=== PATIENT | male | born 1935 | race Caucasian/White ===

== ENCOUNTER → 2018-07-03 13:51 | Outpatient (CLI) | payer MEDICARE, OTHER, SELFPAY ==
--- NOTE | 2018-07-03 14:54 | P.PCN_ITS ---
Cardiac Stress Test Report Referral & Results Date Patient Seen: 07/03/18 Requesting provider: Balbir Tavarez Indication: chest pain with activity Rest ECG: T-wave inversions in inferior and far lateral leads Procedure Note: Today following both written and verbal informed consent the patient was exercised according to a standard Mode protocol patient went for a total of 6 min 24 sec achieving a maximum heart rate of 149 maximum systolic blood pressure of 180. This is approximately 7.0 METS. Exercise was terminated at this point because of chest pain at 4/[address]-T segment changes and target heart rate had been achieved. Patient was also given Cardiolite through a previously started Hep-Lock IV by the physical science technician approximately 1 minute prior to the cessation of exercise. patient did develop about 2 L of initially flat then downsloping ST segment depression in leads V5 and V6 with reciprocal changes in inferior leads. Ba seline T-wave inversions in inferior leads makes this somewhat less specific it more difficult to identify. Patient had occasional PVCs Functional aerobic impairment rated about -10% on the active scale or better than average Impression: Ischemic changes as above in inferior and far lateral leads Better than average exercise capacity Please see perfusion imaging as well Please note: Actual ECG tracings can be found in the PACS system.
--- NOTE | 2018-07-07 07:53 | DI.NM.S_ITS ---
DATE OF SERVICE: 07/03/2018 PROCEDURE: Exercise perfusion study. INDICATION: Exertional angina with known history of coronary artery disease; history of bypass surgery x2; and percutaneous coronary intervention (PCI) of the right coronary artery in 2009, which was chronically occluded. RADIOPHARMACEUTICAL: 25.0 mCi technetium-99m Myoview IV was injected at stress and 24.7 mCi technetium-99m Myoview IV was injected at rest. CARDIAC STRESS: The patient underwent an exercise perfusion study under the supervision of an attending staff. He walked on Mode protocol for 6 minutes 24 seconds and achieved 106% of target heart rate. There was hypertensive blood pressure response. Baseline blood pressure was 160/80. Peak blood pressure reported to be 180/100. Baseline EKG revealed sinus rhythm with T-wave inversions in leads III, aVF, some ST flattening, and occasional PACs. During exercise, the patient developed 2 to 3-mm horizonal as well as down-sloping ST depression in inferior leads as well as lead V5 to V6. The patient has intermittent PACs and some PVCs. In the recovery, the patient had frequent short bursts of 3 to 4 beats run of narrow QRS tachycardia, which overall appears to be regular, likely SVT with a rate more than 200. The patient continues to have intermittent PVCs without any ventricular tachycardia. ST depression in the inferior leads, lateral leads, lasted for a longer duration. The patient also had chest discomfort, which was, on a scale of 1 to 10, about a 4 in intensity. FUNCTIONAL AEROBIC IMPAIRMENT: -10%. The patient achieved 7 minutes of workload. RAW DATA: There was increased subdiaphragmatic activity. GATED STUDY: Stress LV ejection fraction reported to be 52%. There appears to be base to mid inferior wall hyperkinesis. Resting end-diastolic volume 188 mL, suggestive of dilated left ventricle. TID ratio 0.85, which is within normal limits. Lung/heart ratio is 0.28, which is within normal limits. MYOCARDIAL PERFUSION: Stress supine, resting supine, and stress prone images were compared to each other. It appears to be that the patient has predominantly fixed [id number] sized, severely decreased perfusion of base to mid inferior wall extending into the base to mid inferolateral wall as well as basal inferior septum. There was mild rancho-infarct ischemia in the inferolateral area. 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 The patient walked on [place] protocol for 6 minutes 24 seconds, had anginal pain as well as 2 to 3-mm horizontal and down-sloping ST depression in inferolateral leads which lasted a longer duration. In recovery, the patient had short bursts of narrow QRS tachycardia, likely SVT. I do not see obvious atrial fibrillation. The patient has frequent PVCs without any ventricular tachycardia. Discussed with Dr. Tavarez. 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
== END ==
PROVIDERS: PCP Internal Medicine; Visit Provider Internal Medicine Cardiovascular Disease
DX: I25.118 Atherosclerotic heart disease of native coronary artery with other forms of angina pectoris (principal); I49.3 Ventricular premature depolarization
CPT/HCPCS: 78452; 93016; 93017; 93018; A9502

== ENCOUNTER → 2018-09-04 09:22 | Outpatient (CLI) | payer MEDICARE, OTHER, SELFPAY ==
--- NOTE | 2018-09-04 | DI.RAD.S_ITS ---
PROCEDURE: XR RIBS RT 2V INDICATIONS: right rib pain TECHNIQUE: 2 views of the right ribs were acquired. COMPARISON: None. FINDINGS: Surgical changes and devices: None. Bones and chest wall: Lateral right lower rib fracture seen. This is probably the right seventh rib although technically indeterminate. Lungs and pleura: The visualized lung appears clear. No pleural effusions or pneumothorax are visible. IMPRESSION: Lower right lateral rib fracture although the exact rib is unclear probably right seventh rib. Dictated by: Tj Lamb M.D. on 09/04/2018 at 10:13 Approved by: Tj Lamb M.D. on 09/04/2018 at 10:16
--- NOTE | 2018-09-04 | DI.RAD.S_ITS ---
PROCEDURE: XR CHEST 2V INDICATIONS: right rib pain TECHNIQUE: 2 views of the chest were acquired. COMPARISON: None. FINDINGS: Surgical changes and devices: Sternotomy wires. Lungs and pleura: No acute consolidation. Scattered subsegmental atelectasis and/or scarring. No pleural effusions or pneumothorax. Mediastinum: Mediastinal contours are normal. Heart size is normal. Bones and chest wall: No suspicious bony abnormalities. Soft tissues appear unremarkable. IMPRESSION: No acute disease Dictated by: Tj Lamb M.D. on 09/04/2018 at 11:15 Approved by: Tj Lamb M.D. on 09/04/2018 at 11:22
--- NOTE | 2018-09-04 | DI.RAD.S_ITS ---
PROCEDURE: XR LUMBAR SPINE 2-3V INDICATIONS: Low back pain TECHNIQUE: 3 views of the lumbar spine were acquired. COMPARISON: None. FINDINGS: Bones: No fracture or focal osseous destruction. Multilevel degenerative endplate sclerosis and spurring. Diffuse facet arthropathy. Mild dextrocurvature. Grade 1 retrolisthesis of L2 on L3 and L3 on L4. There is also grade 1 retrolisthesis of L4 on L5. Severe narrowing of the L2-L3, L3-L4 disc spaces and moderate narrowing of the remaining lumbar disc spaces. Bilateral hip degeneration, severe on the right and moderate on the left. Soft tissues: Overlying bowel gas pattern is normal. No suspicious soft tissue calcifications. IMPRESSION: Severe diffuse lumbar spondylosis and facet arthropathy as detailed above Mild dextrocurvature. Dictated by: Tj Lamb M.D. on 09/04/2018 at 11:12 Approved by: Tj Lamb M.D. on 09/04/2018 at 11:15
== END ==
PROVIDERS: PCP Internal Medicine; Visit Provider Internal Medicine
DX: R07.81 Pleurodynia (principal); S22.31XA Fracture of one rib, right side, initial encounter for closed fracture; M54.5 Low back pain; M47.816 Spondylosis without myelopathy or radiculopathy, lumbar region; M16.0 Bilateral primary osteoarthritis of hip; M48.061 Spinal stenosis, lumbar region without neurogenic claudication
CPT/HCPCS: 71046; 71100; 72100

== ENCOUNTER 2019-05-19 09:26 | Day surgery (SDC) | payer MEDICARE, OTHER, SELFPAY ==
[2019-05-19] MEDS: PROPARACAINE 0.5% OPHTH SOL 2 DROPS EYE-OP (10:29)
[2019-05-19] MEDS: CATARACT EYE COMPOUND (10 DROPS/SYRINGE) 3 DROPS EYE-OP (10:30)
[2019-05-19 10:31] VITALS: BP 156/85; PULSE 71; RESP 16; TEMP 36.7; O2SAT 99; BMI 23.4
--- NOTE | 2019-05-19 11:22 | PM.PREOP ---
Pre-operative Note Interval Note History & Physical reviewed/Exam performed by Physician: Yes Changes to H&P: Yes
--- NOTE | 2019-05-19 11:22 | PM.OP.1 ---
Operative Date/Time/Diagnoses Pre-op diagnosis: Nuclear cataract right eye Procedure & Clinicians Procedure: Cataract Surgery Same procedure as scheduled: Yes Surgeon: Darek Lamb Anesthesia Type: MAC +/- and Sedation Operative Notes Procedure in detail: Patient brought to the operating suite. Tetracaine drops placed in the right eye. Patient was prepped and draped in sterile manner. Wire lid speculum was placed in the eye. Betadine drops were placed on the eye. This was irrigated. Lidocaine jelly was placed on the eye. A paracentesis port was created with a side-port blade. 0.1 mL 1% preservative free lidocaine was injected into the anterior chamber. The anterior chamber was deepened with viscoelastic. 2.6 mm keratome was used to create a temporal clear corneal incision. Cystotome and Utrata forceps were used to create continuous tear capsulorrhexis. Balanced salt solution was used to hydro dissect the nucleus. The phacoemulsification handpiece was inserted and the nucleus was removed using the stop and chop technique. The irrigation aspiration handpiece was inserted and the remaining cortex was removed. Anterior chamber was deepened with viscoelastic. An Tejada ZCB00 intraocular lens with a power of 23.5 was injected into the capsular bag. Irrigation aspiration handpiece was inserted and the remaining viscoelastic was removed. Incision was hydrated with balanced salt solution and found to be leak free with pressure with Weck-Eve sponges. 0.1 mL Vigamox injected anterior chamber. 0.3 mL Kenalog 10 mg was injected subconjunctivally. Lid speculum was removed. The patient left the operating room in excellent condition. Complications: none Post-operative Condition: stable Disposition: same day surgery
[2019-05-19] MEDS: CHONDROIDTIN/SOD HYALURONATE 1.05 ML SYRINGE INTRAOCULA (11:41)
[2019-05-19] MEDS: LIDOCAINE JELLY 2% 5 ML 1 APPLIC TOP (11:41)
[2019-05-19] MEDS: PHENYLEPHRINE/LIDOCAINE VIAL (OR) 0.2 ML EYE-OP (11:41)
[2019-05-19] MEDS: MOXIFLOXACIN INJ 5 MG/ML VIAL EYE-OP (11:41)
[2019-05-19] MEDS: TETRACAINE 0.5% OPHTH DROPS 4 ML 2 DROPS EYE-OP (11:42)
[2019-05-19] MEDS: TRIAMCINOLONE 50 MG/5 ML VIAL INJ (11:42)
[2019-05-19] MEDS: BALANCED SALT IRRIG SOLN NO.2 500 ML, EPINEPHrine 1 MG IRR (11:42)
[2019-05-19 11:55] VITALS: BP 106/68; PULSE 68; RESP 16; TEMP 36.2; O2SAT 97
--- NOTE | 2019-05-19 12:23 | SUR.PHASEII ---
Patient discharged with friend home via private vehicle.
== END 2019-05-19 12:23 | disposition home or self-care (01) ==
PROVIDERS: Family Provider Internal Medicine; PCP Internal Medicine; Visit Provider Ophthalmology
PROC: (CPT 66984; principal; 2019-05-19 11:15)
DX: H25.11 Age-related nuclear cataract, right eye (principal)
CPT/HCPCS: 66984; J0171; J2250; J3010; J3301

== ENCOUNTER 2019-06-02 08:29 | Day surgery (SDC) | payer MEDICARE, OTHER, SELFPAY ==
[2019-06-02 09:01] VITALS: BP 129/76; PULSE 61; RESP 15; TEMP 36.3; O2SAT 97; BMI 23.4
[2019-06-02] MEDS: PROPARACAINE 0.5% OPHTH SOL 2 DROPS EYE-OP (09:15)
[2019-06-02] MEDS: CATARACT EYE COMPOUND (10 DROPS/SYRINGE) 3 DROPS EYE-OP (09:23)
--- NOTE | 2019-06-02 09:48 | PM.PREOP ---
Pre-operative Note Interval Note History & Physical reviewed/Exam performed by Physician: No Changes to H&P: No
--- NOTE | 2019-06-02 09:48 | PM.OP.1 ---
Operative Date/Time/Diagnoses Pre-op diagnosis: Nuclear Cataract Left eye Post-op diagnosis: same Procedure & Clinicians Same procedure as scheduled: Yes Surgeon: Darek Lamb Anesthesia Type: MAC +/- and Sedation Operative Notes Procedure in detail: Patient brought to the operating suite. Tetracaine drops placed in the left eye. Patient was prepped and draped in sterile manner. Wire lid speculum was placed in the eye. Betadine drops were placed on the eye. This was irrigated. Lidocaine jelly was placed on the eye. A paracentesis port was created with a side-port blade. 0.1 mL 1% preservative free lidocaine was injected into the anterior chamber. The anterior chamber was deepened with viscoelastic. 2.6 mm keratome was used to create a temporal clear corneal incision. Cystotome and Utrata forceps were used to create continuous tear capsulorrhexis. Balanced salt solution was used to hydro dissect the nucleus. The phacoemulsification handpiece was inserted and the nucleus was removed using the stop and chop technique. The irrigation aspiration handpiece was inserted and the remaining cortex was removed. Anterior chamber was deepened with viscoelastic. An Tejada ZCB00 intraocular lens with a power of 23.0 was injected into the capsular bag. Irrigation aspiration handpiece was inserted and the remaining viscoelastic was removed. Incision was hydrated with balanced salt solution and found to be leak free with pressure with Weck-Eve sponges. 0.1 mL Vigamox injected anterior chamber. 0.3 mL Kenalog 10 mg was injected subconjunctivally. Lid speculum was removed. The patient left the operating room in excellent condition. Complications: none Post-operative Condition: stable Disposition: same day surgery
--- NOTE | 2019-06-02 09:57 | SUR.OPER ---
Supine on eye stretcher, head on extension cradle secured with tape. Arms tucked at sides with blanket. Pillow under knees.
[2019-06-02] MEDS: PHENYLEPHRINE/LIDOCAINE VIAL (OR) 0.2 ML EYE-OP (10:00)
[2019-06-02] MEDS: CHONDROIDTIN/SOD HYALURONATE 1.05 ML SYRINGE INTRAOCULA (10:01)
[2019-06-02] MEDS: TRIAMCINOLONE 50 MG/5 ML VIAL INJ (10:01)
[2019-06-02] MEDS: MOXIFLOXACIN INJ 5 MG/ML VIAL EYE-OP (10:01)
[2019-06-02] MEDS: LIDOCAINE JELLY 2% 5 ML 1 APPLIC TOP (10:02)
[2019-06-02] MEDS: TETRACAINE 0.5% OPHTH DROPS 4 ML 2 DROPS EYE-OP (10:02)
[2019-06-02] MEDS: BALANCED SALT IRRIG SOLN NO.2 500 ML, EPINEPHrine 1 MG IRR (10:02)
[2019-06-02 10:26] VITALS: BP 107/74; PULSE 69; RESP 16; TEMP 36.6; O2SAT 100
== END 2019-06-02 10:58 | disposition home or self-care (01) ==
PROVIDERS: PCP Internal Medicine; Visit Provider Ophthalmology
PROC: (CPT 66984; principal; 2019-06-02 10:15)
DX: H25.12 Age-related nuclear cataract, left eye (principal)
CPT/HCPCS: 66984; J0171; J2250; J3010; J3301

== ENCOUNTER → 2019-06-25 08:18 | Outpatient (CLI) | payer MEDICARE, OTHER, SELFPAY ==
--- NOTE | 2019-06-25 08:25 | DI.RAD.S_ITS ---
PROCEDURE: XR HIP W PEL IF DONE RT 2V INDICATIONS: Right hip pain TECHNIQUE: AP pelvis with lateral view(s) of the right hip. COMPARISON: [facility], CR, XR LUMBAR SPINE 2-3V, 09/04/2018, 9:29. FINDINGS: Bones: No fractures or dislocations but the right hip joint osteoarthritis pattern present 09/04/18 on lumbosacral spine plain films has further progressed mildly, with a greater degree of esyz-lp-[id number] articulation. No effusion or intra-articular loose body is suspected.. Pelvic ring appears intact. No suspicious bony lesions. Soft tissues: The visualized bowel gas pattern is normal. No suspicious soft tissue calcifications. IMPRESSION: Severe right hip joint osteoarthritis with progression from September of last year. The degree of zqgn-ir-[id number] articulation has worsened. No recent trauma found. Dictated by: Florian Robledo M.D. on 06/25/2019 at 9:33 Approved by: Florian Robledo M.D. on 06/25/2019 at 9:35
== END ==
PROVIDERS: PCP Internal Medicine; Referring Provider Internal Medicine; Visit Provider Internal Medicine
DX: M25.551 Pain in right hip (principal); M16.11 Unilateral primary osteoarthritis, right hip
CPT/HCPCS: 73502

== ENCOUNTER 2020-03-24 15:00 | Outpatient (RCR) | payer MEDICARE, OTHER, SELFPAY ==
--- NOTE | 2020-01-19 18:42 | PT.OIE ---
Current Diagnoses Unilateral primary osteoarthritis, right hip (01/19/20) Other abnormalities of gait and mobility (01/19/20) Visit Care Team Role Provider Type Terry Rogers MD Primary Care Provider Physician Specialty: Internal Medicine Address: [address] [place] [address], [id number] Email: [email or web address] Jourdan Rios MD Attending Provider Non-Staff Referring Provider Specialty: Orthopedic Surgery Address: [address] [place] [address], [id number] Email: Physical Therapy Initial Evaluation PT-OP-A Visit Information Start: 01/15/20 19:59 Freq: Status: Active Protocol: Document 01/19/20 09:51 LRN (Rec: 01/19/20 10:45 LRN [id number]) Out-Patient Physical Therapy Visit Information Visit Information Visit Type Initial Evaluation Visit Start Time 09:51 Visit Stop Time 10:45 Total Visit Minutes 54 Visit Number 1 Evaluation Information Evaluation Date 01/19/20 Precautions Precautions Heart attack 1987, Heart disease, CABG x 2, RPP 2 5 stent, Hernia, Back pain, Controlled blood pressure. PT-OP-B Current Condition Start: 01/15/20 19:59 Freq: Status: Active Protocol: Document 01/19/20 09:51 LRN (Rec: 01/19/20 10:45 LRN [id number]) Current Condition History of Current Condition Onset Date 5 yrs ago, worsened in the past 6 months. Current Complaints Pain with activity and movement of the R hip. History of Current Condition Gradual onset of R hip pain for the past 5 yrs. R RIO surgery planned on Feb 15, 2020. Sister in law will take care of 3 weeks post op and then daughter will be caregiver for another 3 weeks. Pt plans to go to a rehab center after surgery. Prior Treatments and Tests None Future Testing and Treatments Planned R RIO surgery planned on Feb 15, 2020 with planned post op PT. Treatment Goals Patient/Caregiver Goals Pt goal is to complete pre-op PT assignment. Pt goal post operatively is to walk normal without a cane and to be able to walk dog. Prior Functional Status Baseline Function- ADL's Independent Baseline Function- Mobility Independent Baseline Function- Gait Walked without an assistive device 5 yrs ago. Baseline Function- Other Walked dog 1 mile daily 2 yrs ago. Played baseball in [employer] league 5 yrs ago. Current Functional Impairments (Reported) Functional Limitations- Mobility/Gait Limited in walking distance with cane on the left for past 6 months. Antalgic gait. Functional Limitations- Other Can't walk dog anymore due to pain. Personal Factors Other Personal Factors That May Effect Caregiver for spouse Therapy/Recovery Hx of heart disease with heart attack in 1987 and CABG x 2 and 5 stents. PT-OP-C Subjective Start: 01/15/20 19:59 Freq: Status: Active Protocol: Document 01/19/20 09:51 LRN (Rec: 01/19/20 10:45 LRN [id number]) OP-PT Subjective Patient Comments Patient Comments Eval is for a pre-op hip replacement. Patient Questionnaires Lower Extremity Functional Scale LEFS Score 52 LEFS Impairment 20 to 39% Impaired (Score 48- 62) OP-PT Pain Assessment Pain Assessment Grid Paper Pain Assessment Grid Completed Yes Location R hip Pain Location Details Entire R hip Intensity 3 Scale Used Numeric (0 - 10) Description With Movement Frequency Intermittent Pain Aggravating Factors Activity PT-OP-G Mobility & Gait Start: 01/15/20 19:59 Freq: Status: Active Protocol: Document 01/19/20 09:51 LRN (Rec: 01/19/20 18:25 LRN [id number]) OP Mobility Evaluation Bed Mobility Supine to and from Sit Independent Transfers Sit to Stand Independent with use of UE's Bed to Chair Transfers Independent without assistive device walking a few steps to plinth. OP Gait Assessment Gait Gait Assistance Required: Independent Assistive Devices Assistive Device Straight Cane Gait Deviations General Gait Pattern Antalgic Factors Limiting Gait Function Factors Limiting Gait Function Decreased Strength,Pain Stair Climbing Evaluation Evaluation Level of Assist On Stairs Independent Devices Stair Climbing Assistive Devices Left Railing,Right Railing Technique/Endurance Stair Climbing Direction Ascend and Descend Stair Climbing Technique Step Over Step Comments Stair Climbing Comments Pt ambs with use of 1 rail on opposite side ascending vs descending. PT-OP-J Posture/Palpation/Skin Start: 01/15/20 19:59 Freq: Status: Active Protocol: Document 01/19/20 09:51 LRN (Rec: 01/19/20 18:25 LRN [id number]) Posture Evaluation Position Standing T-Spine Posture Increased Kyphosis L-Spine Posture Flattened,Shifted Left Knee Posture (R) Excess Flexion Ankle/Foot Posture (L) Calcaneal Inversion Comments Posture Comments R leg is short. Posterior Spinous processes ~ T7-T9. PT-OP-K Range of Motion Start: 01/15/20 19:59 Freq: Status: Active Protocol: Document 01/19/20 09:51 LRN (Rec: 01/19/20 18:25 LRN [id number]) Hip Goniometric Range of Motion Hip Right Active Extension 3 Abduction 12 Left Active Straight Leg Raise 5 Abduction 22 Right Passive Testing Position Supine Flexion w/Knee Flexed 105 Abduction 17 Internal Rotation 19 External Rotation 19 Left Passive Testing Position Supine Flexion w/Knee Flexed 102 Abduction 24 Internal Rotation 20 External Rotation 35 PT-OP-M Strength Start: 01/15/20 19:59 Freq: Status: Active Protocol: Document 01/19/20 09:51 LRN (Rec: 01/19/20 18:25 LRN [id number]) Hip Strength Hip Manual Muscle Testing Right Abduction 3 Fair Comments Hip strength is 5/5 except as indicated above. Left Comments Hip strength is 5/5. PT-OP-Q Treatments Start: 01/15/20 19:59 Freq: Status: Active Protocol: Document 01/19/20 09:51 LRN (Rec: 01/19/20 18:25 LRN [id number]) Therapeutic Exercises Supine Exercises Heel slides Supine Exercise Name Heel slides Side right Reps/Minutes 10x Hip AB Supine Exercise Name Hip AB Side right Reps/Minutes 10x SAQ Supine Exercise Name SAQ Side right Reps/Minutes 10x Glut set Supine Exercise Name GS Side right Reps/Minutes 5 hold x 5 QS Supine Exercise Name QS Side right Reps/Minutes 20x Sitting Exercises L ankle IV Sitting Exercise Name L ankle IV Side left Arm Chair Pushups Sitting Exercise Name Arm chair push ups Reps/Minutes 10x Knee ext Sitting Exercise Name LAQ Side right Reps/Minutes 10x Standing Exercises Mini squats Standing Exercise Name Mini squats Reps/Minutes 10x Comments Extra time to teach proper standing posture for ex Self-Care/Home Management Treatment Activities Self-Care/Home Management Activities Reviewed pt HEP. PT-OP-T Assessment and Plan Start: 01/15/20 19:59 Freq: Status: Active Protocol: Document 01/19/20 09:51 LRN (Rec: 01/19/20 18:25 LRN [id number]) Physical Therapy Assessment Rehab Potential Rehabilitation Potential Excellent Evaluation Complexity Number of Personal Factors/Comorbidities 1-2 Number of Body Systems Impaired 4 or More Clinical Presentation at Evaluation Evolving Impairments Impairments Activity Tolerance,Balance, Gait,Pain,Posture,ROM,Strength ,Transfers Goals Four Impairment Pt lacks appropriate knowledge of post op RIO precautions/ posture. Short Term Goal (STG) Pt will be educated in post op R RIO precautions and proper sitting posture. Care Home Goal (LTG) Pt will be able to demonstrate knowledge of RIO precautions for post-op R RIO care. Three Impairment Antalgic gait Short Term Goal (STG) Pt will be educated in proper stair ambulation as needed for post-op R RIO care. Care Home Goal (LTG) Pt will be educated in proper use of walker as needed for post-op R RIO care. Two Impairment Pt lacks proper knowledge of transfer techniques post-op care Director Employee Safety And Health Goal (LTG) Pt will be able to demonstrate proper transfer technique for post-op R RIO care. One Impairment Pt partially lacks a self care pre-operative HEP. Short Term Goal (STG) Pt will be independent with a ROM self care HEP. Director Employee Safety And Health Goal (LTG) Pt will be independent in a self care pre-operative HEP, including hip strengthening exercises for flex & ext and ankle strengthening and standing balance exercises. Assessment Summary Assessment Pt presents with very limited R hip mobility with rotation and AB; and strength deficit with R hip AB, although strength is good with rotation only in a very limited range. He ambulates with an antalgic gait and requires use of an assistive device due to pain. He is limited in his ambulatory distance due to to pain. 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 His balance has been effected with poor single leg stance bilaterally (1 sec R, 3 secs L), that could hinder his progress towards safety with gait. The pt will benefit from skilled physical therapy for training preoperatively for proper gait on level and stairs, posturing and self care for edema management, as well as a balance, ROM and strengthening HEP. He will also benefit from post- operative RIO rehabilitation. Physical Therapy Plan Frequency and Duration Frequency of Treatment 2x/week > 1x/week Plan of Care Start Date 01/19/20 Plan of Care End Date 02/12/20 Therapeutic Interventions Therapeutic Interventions Balance Training,Gait Training ,Home Exercise Program, Neuromuscular Re-education, Patient/Caregiver Education, Self-Care/Home Management,Soft Tissue Mobilization, Therapeutic Activities, Therapeutic Exercises Modalities Cold Pack/Ice Massage Next Visit Focus/Plan Next Note Type Treatment Note Next Visit Plan Pt to be seen pre-op R RIO for strengthening, stretching, HEP, PROM/AROM. TUG assessment. Therapy to include training for stair amb , gait training with walker, and transfer training. Postural training in sitting when post op. Education of Edema management. Ankle strengthening HEP with T-Band. Add HEP: SLR, bridging, standing hip strengthening and ROM ex's to improve hip mobility as tolerated. Determine tolerance on shuttle for strengthening. The pt will be tentatively set up for a post-operative R RIO schedule, but will need a referral to begin his post operative rehab program.
--- NOTE | 2020-01-19 18:42 | PT.OPPOC ---
Physical, Occupational & Speech Therapy At [facility] Current Diagnoses Unilateral primary osteoarthritis, right hip (01/19/20) Other abnormalities of gait and mobility (01/19/20) Visit Care Team Role Provider Type Terry Rogers MD Primary Care Provider Physician Specialty: Internal Medicine Address: [address] [place] [address], [id number] Email: [email or web address] Jourdan Rios MD Attending Provider Non-Staff Referring Provider Specialty: Orthopedic Surgery Address: [address] [place] [address], [phone] Email: Plan Of Care PT-OP-T Assessment and Plan Start: 01/15/20 19:59 Freq: Status: Active Protocol: Document 01/19/20 09:51 LRN (Rec: 01/19/20 18:25 LRN [id number]) Physical Therapy Assessment Rehab Potential Rehabilitation Potential Excellent Evaluation Complexity Number of Personal Factors/Comorbidities 1-2 Number of Body Systems Impaired 4 or More Clinical Presentation at Evaluation Evolving Impairments Impairments Activity Tolerance,Balance, Gait,Pain,Posture,ROM,Strength ,Transfers Goals Four Impairment Pt lacks appropriate knowledge of post op RIO precautions/ posture. Short Term Goal (STG) Pt will be educated in post op R RIO precautions and proper sitting posture. Mcfp Goal (LTG) Pt will be able to demonstrate knowledge of RIO precautions for post-op R RIO care. Three Impairment Antalgic gait Short Term Goal (STG) Pt will be educated in proper stair ambulation as needed for post-op R RIO care. Nurse Research Goal (LTG) Pt will be educated in proper use of walker as needed for post-op R RIO care. Two Impairment Pt lacks proper knowledge of transfer techniques post-op care Mcfp Goal (LTG) Pt will be able to demonstrate proper transfer technique for post-op R RIO care. One Impairment Pt partially lacks a self care pre-operative HEP. Short Term Goal (STG) Pt will be independent with a ROM self care HEP. Nurse Research Goal (LTG) Pt will be independent in a self care pre-operative HEP, including hip strengthening exercises for flex & ext and ankle strengthening and standing balance exercises. Assessment Summary Assessment Pt presents with very limited R hip mobility with rotation and AB; and strength deficit with R hip AB, although strength is good with rotation only in a very limited range. He ambulates with an antalgic gait and requires use of an assistive device due to pain. He is limited in his ambulatory distance due to to pain. 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 His balance has been effected with poor single leg stance bilaterally (1 sec R, 3 secs L), that could hinder his progress towards safety with gait. The pt will benefit from skilled physical therapy for training preoperatively for proper gait on level and stairs, posturing and self care for edema management, as well as a balance, ROM and strengthening HEP. He will also benefit from post- operative RIO rehabilitation. Physical Therapy Plan Frequency and Duration Frequency of Treatment 2x/week > 1x/week Plan of Care Start Date 01/19/20 Plan of Care End Date 02/12/20 Therapeutic Interventions Therapeutic Interventions Balance Training,Gait Training ,Home Exercise Program, Neuromuscular Re-education, Patient/Caregiver Education, Self-Care/Home Management,Soft Tissue Mobilization, Therapeutic Activities, Therapeutic Exercises Modalities Cold Pack/Ice Massage Next Visit Focus/Plan Next Note Type Treatment Note Next Visit Plan Pt to be seen pre-op R RIO for strengthening, stretching, HEP, PROM/AROM. TUG assessment. Therapy to include training for stair amb , gait training with walker, and transfer training. Postural training in sitting when post op. Education of Edema management. Ankle strengthening HEP with T-Band. Add HEP: SLR, bridging, standing hip strengthening and ROM ex's to improve hip mobility as tolerated. Determine tolerance on shuttle for strengthening. The pt will be tentatively set up for a post-operative R RIO schedule, but will need a referral to begin his post operative rehab program. Plan of Care Dates Plan of Care Start Date 01/19/20 Plan of Care End Date 02/12/20 Electronically Signed by: Brielle Darling, PT 01/19/20 [id number] Please Sign and Return: I have reviewed this Plan of Care and certify that the skilled therapy services above are required to meet the patient?s needs. Physician Signature Date Printed Name and Credentials Clinical Instructor Signature Printed Name and Credentials
--- NOTE | 2020-01-22 12:25 | PT.OTN ---
Current Diagnoses Unilateral primary osteoarthritis, right hip (01/22/20) Other abnormalities of gait and mobility (01/22/20) Physical Therapy Treatment Note PT-OP-A Visit Information Start: 01/15/20 19:59 Freq: Status: Active Protocol: Document 01/22/20 11:17 LRN (Rec: 01/22/20 12:24 LRN [id number]) Out-Patient Physical Therapy Visit Information Visit Information Visit Type Treatment Note Visit Start Time 11:18 Visit Stop Time 12:05 Total Visit Minutes 47 Visit Number 2 Evaluation Information Evaluation Date 01/19/20 Precautions Precautions Heart attack 1987, Heart disease, CABG x 2, RPP 2 5 stent, Hernia, Back pain, Controlled blood pressure. PT-OP-B Current Condition Start: 01/15/20 19:59 Freq: Status: Active Protocol: Document 01/19/20 09:51 LRN (Rec: 01/19/20 10:45 LRN [id number]) Current Condition History of Current Condition Onset Date 5 yrs ago, worsened in the past 6 months. Current Complaints Pain with activity and movement of the R hip. History of Current Condition Gradual onset of R hip pain for the past 5 yrs. R RIO surgery planned on Feb 15, 2020. Sister in law will take care of 3 weeks post op and then daughter will be caregiver for another 3 weeks. Pt plans to go to a rehab center after surgery. Prior Treatments and Tests None Future Testing and Treatments Planned R RIO surgery planned on Feb 15, 2020 with planned post op PT. Treatment Goals Patient/Caregiver Goals Pt goal is to complete pre-op PT assignment. Pt goal post operatively is to walk normal without a cane and to be able to walk dog. Prior Functional Status Baseline Function- ADL's Independent Baseline Function- Mobility Independent Baseline Function- Gait Walked without an assistive device 5 yrs ago. Baseline Function- Other Walked dog 1 mile daily 2 yrs ago. Played baseball in [employer] 5 yrs ago. Current Functional Impairments (Reported) Functional Limitations- Mobility/Gait Limited in walking distance with cane on the left for past 6 months. Antalgic gait. Functional Limitations- Other Can't walk dog anymore due to pain. Personal Factors Other Personal Factors That May Effect Caregiver for spouse Therapy/Recovery Hx of heart disease with heart attack in 1987 and CABG x 2 and 5 stents. PT-OP-C Subjective Start: 01/15/20 19:59 Freq: Status: Active Protocol: Document 01/22/20 11:17 LRN (Rec: 01/22/20 12:24 LRN [id number]) OP-PT Subjective Patient Comments Patient Comments Doing exercise. PT-OP-E Functional Tests Start: 01/15/20 19:59 Freq: Status: Active Protocol: Document 01/22/20 11:17 LRN (Rec: 01/22/20 12:24 LRN [id number]) Functional Tests Timed Up and Go (TUG) Score 11.05 Comments Using hands to sit time was 12 .03 secs. TUG Impairment Rating 1 to <20% Impaired (Score 11) PT-OP-G Mobility & Gait Start: 01/15/20 19:59 Freq: Status: Active Protocol: Document 01/19/20 09:51 LRN (Rec: 01/19/20 18:25 LRN [id number]) OP Mobility Evaluation Bed Mobility Supine to and from Sit Independent Transfers Sit to Stand Independent with use of UE's Bed to Chair Transfers Independent without assistive device walking a few steps to plinth. OP Gait Assessment Gait Gait Assistance Required: Independent Assistive Devices Assistive Device Straight Cane Gait Deviations General Gait Pattern Antalgic Factors Limiting Gait Function Factors Limiting Gait Function Decreased Strength,Pain Stair Climbing Evaluation Evaluation Level of Assist On Stairs Independent Devices Stair Climbing Assistive Devices Left Railing,Right Railing Technique/Endurance Stair Climbing Direction Ascend and Descend Stair Climbing Technique Step Over Step Comments Stair Climbing Comments Pt ambs with use of 1 rail on opposite side ascending vs descending. PT-OP-J Posture/Palpation/Skin Start: 01/15/20 19:59 Freq: Status: Active Protocol: Document 01/19/20 09:51 LRN (Rec: 01/19/20 18:25 LRN [id number]) Posture Evaluation Position Standing T-Spine Posture Increased Kyphosis L-Spine Posture Flattened,Shifted Left Knee Posture (R) Excess Flexion Ankle/Foot Posture (L) Calcaneal Inversion Comments Posture Comments R leg is short. Posterior Spinous processes ~ T7-T9. PT-OP-K Range of Motion Start: 01/15/20 19:59 Freq: Status: Active Protocol: Document 01/19/20 09:51 LRN (Rec: 01/19/20 18:25 LRN [id number]) Hip Goniometric Range of Motion Hip Right Active Extension 3 Abduction 12 Left Active Straight Leg Raise 5 Abduction 22 Right Passive Testing Position Supine Flexion w/Knee Flexed 105 Abduction 17 Internal Rotation 19 External Rotation 19 Left Passive Testing Position Supine Flexion w/Knee Flexed 102 Abduction 24 Internal Rotation 20 External Rotation 35 PT-OP-M Strength Start: 01/15/20 19:59 Freq: Status: Active Protocol: Document 01/19/20 09:51 LRN (Rec: 01/19/20 18:25 LRN [id number]) Hip Strength Hip Manual Muscle Testing Right Abduction 3 Fair Comments Hip strength is 5/5 except as indicated above. Left Comments Hip strength is 5/5. PT-OP-Q Treatments Start: 01/15/20 19:59 Freq: Status: Active Protocol: Document 01/22/20 11:17 LRN (Rec: 01/22/20 12:24 LRN [id number]) Therapeutic Exercises Supine Exercises Bridge Supine Exercise Name Bridge Side right Reps/Minutes 15 x 2 SLR Supine Exercise Name SLR Side right Reps/Minutes 15 x Heel slides Supine Exercise Name Heel slides Side right Reps/Minutes 15 x Hip AB Supine Exercise Name Hip AB Side right Reps/Minutes 15 x Standing Exercises Hip Flex Standing Exercise Name March Side right Reps/Minutes 15 x Hip AB Standing Exercise Name Side stepping R & L Reps/Minutes 2 x railing distance. Hip Ext Standing Exercise Name Hip Ext Side right Reps/Minutes 15 x Therapeutic Activity Therapeutic Activity Stand <-> Sitting in Car Name Stand <-> Sitting in Car Reps/Minutes 3' Sit <-> Supine Name Sit <-> Supine Reps/Minutes 3' Comments Education needed of precaution of movement awareness. Sit <-> Stand Name Sit <-> Stand training Reps/Minutes 15' Comments Education needed of precaution of movement awareness. Gait Training Gait Activity Stair ambulation Description Stair ambulation training for R RIO Device Used Rail on R, cane on L. Level of Assistance SBA Distance/Duration 5' Treatment Focus Step to gait as if post op gait. Self-Care/Home Management Treatment Education Patient Education Joint Protection Other Education Educated pt in R RIO precautions and discussed safe sleeping positions. Educated pt in proper post-op sitting posture, and proper mechanics for gait and turning with FWW and for proper stair ambulation. Activities Self-Care/Home Management Activities Issued & reviewed RIO precautions, Post op hip strengthening & Hip Ex: SLR, Bridge, standing hip ext, flex , AB PT-OP-T Assessment and Plan Start: 01/15/20 19:59 Freq: Status: Active Protocol: Document 01/22/20 11:17 LRN (Rec: 01/22/20 12:24 LRN [id number]) Physical Therapy Assessment Goals Four Impairment Pt lacks appropriate knowledge of post op RIO precautions/ posture. Short Term Goal (STG) Pt will be educated in post op R RIO precautions and proper sitting posture. STG Duration 01/29/20 (01/22/20: MET GOAL) Mcfp Goal (LTG) Pt will be able to demonstrate knowledge of RIO precautions for post-op R RIO care. LTG Duration 02/12/20 (01/22/20: Pt recalled 2/3 RIO precautions) Three Impairment Antalgic gait Short Term Goal (STG) Pt will be educated in proper stair ambulation as needed for post-op R RIO care. STG Duration 01/29/20 (01/22/20: MET GOAL) Cnc Operator Machinist Goal (LTG) Pt will be educated in proper use of walker as needed for post-op R RIO care. LTG Duration 02/12/20 (01/22/20: MET GOAL) Two Impairment Pt lacks proper knowledge of transfer techniques post-op care Cnc Operator Machinist Goal (LTG) Pt will be able to demonstrate proper transfer technique for post-op R RIO care. LTG Duration 02/12/20 (01/22/20: Progressing) One Impairment Pt partially lacks a self care pre-operative HEP. Short Term Goal (STG) Pt will be independent with a ROM self care HEP. STG Duration 01/29/20 Mcfp Goal (LTG) Pt will be independent in a self care pre-operative HEP, including hip strengthening exercises for flex & ext and ankle strengthening and standing balance exercises. LTG Duration 02/12/20 (01/22/20: Progressing) Assessment Summary Assessment TUG is 11 secs (1<20% impaired ). Physical Therapy Plan Frequency and Duration Frequency of Treatment 2x/week > 1x/week Plan of Care Start Date 01/19/20 Plan of Care End Date 10/09/20 Next Visit Focus/Plan Next Note Type Treatment Note Next Visit Plan Pt to be seen pre-op R RIO for strengthening, stretching, HEP, PROM/AROM. Review RIO precautions, and assess for proper transfer techniques and sitting when post op. Education of Edema management. Ankle strengthening HEP with T-Band. Progress R LE ROM ex . Add HEP: ROM ex's to improve hip mobility as tolerated. Determine tolerance on shuttle for strengthening. The pt will be tentatively set up for a post -operative R RIO schedule, but will need a referral to begin his post operative rehab program.
--- NOTE | 2020-01-22 12:25 | PT.OPPOC ---
Physical, Occupational & Speech Therapy At [facility] Current Diagnoses Unilateral primary osteoarthritis, right hip (01/22/20) Other abnormalities of gait and mobility (01/22/20) Visit Care Team Role Provider Type Terry Rogers MD Primary Care Provider Physician Specialty: Internal Medicine Address: [address] [place] [address], [address] Email: [email or web address] Jourdan Rios MD Attending Provider Non-Staff Referring Provider Specialty: Orthopedic Surgery Address: [address] [place] [address], [phone] Email: Plan Of Care PT-OP-T Assessment and Plan Start: 01/15/20 19:59 Freq: Status: Active Protocol: Document 01/22/20 11:17 LRN (Rec: 01/22/20 12:24 LRN [id number]) Physical Therapy Assessment Goals Four Impairment Pt lacks appropriate knowledge of post op RIO precautions/ posture. Short Term Goal (STG) Pt will be educated in post op R RIO precautions and proper sitting posture. STG Duration 01/29/20 (01/22/20: MET GOAL) [facility] Goal (LTG) Pt will be able to demonstrate knowledge of RIO precautions for post-op R RIO care. LTG Duration 02/12/20 (01/22/20: Pt recalled 2/3 RIO precautions) Three Impairment Antalgic gait Short Term Goal (STG) Pt will be educated in proper stair ambulation as needed for post-op R RIO care. STG Duration 01/29/20 (01/22/20: MET GOAL) [facility] Goal (LTG) Pt will be educated in proper use of walker as needed for post-op R RIO care. LTG Duration 02/12/20 (01/22/20: MET GOAL) Two Impairment Pt lacks proper knowledge of transfer techniques post-op care [facility] Goal (LTG) Pt will be able to demonstrate proper transfer technique for post-op R RIO care. LTG Duration 02/12/20 (01/22/20: Progressing) One Impairment Pt partially lacks a self care pre-operative HEP. Short Term Goal (STG) Pt will be independent with a ROM self care HEP. STG Duration 01/29/20 Jar Capper Goal (LTG) Pt will be independent in a self care pre-operative HEP, including hip strengthening exercises for flex & ext and ankle strengthening and standing balance exercises. LTG Duration 02/12/20 (01/22/20: Progressing) Assessment Summary Assessment TUG is 11 secs (1<20% impaired ). Physical Therapy Plan Frequency and Duration Frequency of Treatment 2x/week > 1x/week Plan of Care Start Date 01/19/20 Plan of Care End Date 02/12/20 Next Visit Focus/Plan Next Note Type Treatment Note Next Visit Plan Pt to be seen pre-op R RIO for strengthening, stretching, HEP, PROM/AROM. Review RIO precautions, and assess for proper transfer techniques and sitting when post op. Education of Edema management. Ankle strengthening HEP with T-Band. Progress R LE ROM ex . Add HEP: ROM ex's to improve hip mobility as tolerated. Determine tolerance on shuttle for strengthening. The pt will be tentatively set up for a post -operative R RIO schedule, but will need a referral to begin his post operative rehab program. Plan of Care Dates Plan of Care Start Date 01/19/20 Plan of Care End Date 02/12/20 Electronically Signed by: Brielle Darling, PT 01/22/20 [id number] Please Sign and Return: I have reviewed this Plan of Care and certify that the skilled therapy services above are required to meet the patient?s needs. Physician Signature Date Printed Name and Credentials Clinical Instructor Signature Printed Name and Credentials
--- NOTE | 2020-01-22 12:26 | PT.OPPOC ---
Physical, Occupational & Speech Therapy At [facility] Current Diagnoses Unilateral primary osteoarthritis, right hip (01/22/20) Other abnormalities of gait and mobility (01/22/20) Visit Care Team Role Provider Type Terry Rogers MD Primary Care Provider Physician Specialty: Internal Medicine Address: [address] [place] [address], [phone] Email: [email or web address] Jourdan Rios MD Attending Provider Non-Staff Referring Provider Specialty: Orthopedic Surgery Address: [address] [place] [address], [phone] Email: Plan Of Care PT-OP-T Assessment and Plan Start: 01/15/20 19:59 Freq: Status: Active Protocol: Document 01/22/20 11:17 LRN (Rec: 01/22/20 12:24 LRN [id number]) Physical Therapy Assessment Goals Four Impairment Pt lacks appropriate knowledge of post op RIO precautions/ posture. Short Term Goal (STG) Pt will be educated in post op R RIO precautions and proper sitting posture. STG Duration 01/29/20 (01/22/20: MET GOAL) [facility] Goal (LTG) Pt will be able to demonstrate knowledge of RIO precautions for post-op R RIO care. LTG Duration 02/12/20 (01/22/20: Pt recalled 2/3 RIO precautions) Three Impairment Antalgic gait Short Term Goal (STG) Pt will be educated in proper stair ambulation as needed for post-op R RIO care. STG Duration 01/29/20 (01/22/20: MET GOAL) [facility] Goal (LTG) Pt will be educated in proper use of walker as needed for post-op R RIO care. LTG Duration 02/12/20 (01/22/20: MET GOAL) Two Impairment Pt lacks proper knowledge of transfer techniques post-op care [facility] Goal (LTG) Pt will be able to demonstrate proper transfer technique for post-op R RIO care. LTG Duration 02/12/20 (01/22/20: Progressing) One Impairment Pt partially lacks a self care pre-operative HEP. Short Term Goal (STG) Pt will be independent with a ROM self care HEP. STG Duration 01/29/20 Cellar Pumper Goal (LTG) Pt will be independent in a self care pre-operative HEP, including hip strengthening exercises for flex & ext and ankle strengthening and standing balance exercises. LTG Duration 02/12/20 (01/22/20: Progressing) Assessment Summary Assessment TUG is 11 secs (1<20% impaired ). Physical Therapy Plan Frequency and Duration Frequency of Treatment 2x/week > 1x/week Plan of Care Start Date 01/19/20 Plan of Care End Date 02/12/20 Next Visit Focus/Plan Next Note Type Treatment Note Next Visit Plan Pt to be seen pre-op R RIO for strengthening, stretching, HEP, PROM/AROM. Review RIO precautions, and assess for proper transfer techniques and sitting when post op. Education of Edema management. Ankle strengthening HEP with T-Band. Progress R LE ROM ex . Add HEP: ROM ex's to improve hip mobility as tolerated. Determine tolerance on shuttle for strengthening. The pt will be tentatively set up for a post -operative R RIO schedule, but will need a referral to begin his post operative rehab program. Plan of Care Dates Plan of Care Start Date 01/19/20 Plan of Care End Date 02/12/20 Electronically Signed by: Brielle Darling, PT 01/22/20 2062 Please Sign and Return: I have reviewed this Plan of Care and certify that the skilled therapy services above are required to meet the patient?s needs. Physician Signature Date Printed Name and Credentials Clinical Instructor Signature Printed Name and Credentials
--- NOTE | 2020-01-26 16:41 | PT.OTN ---
Current Diagnoses Unilateral primary osteoarthritis, right hip (01/26/20) Other abnormalities of gait and mobility (01/26/20) Physical Therapy Treatment Note PT-OP-A Visit Information Start: 01/15/20 19:59 Freq: Status: Active Protocol: Document 01/26/20 09:52 LRN (Rec: 01/26/20 10:33 LRN [id number]) Out-Patient Physical Therapy Visit Information Visit Information Visit Type Treatment Note Visit Start Time 09:52 Visit Stop Time 10:32 Total Visit Minutes 40 Visit Number 3 Evaluation Information Evaluation Date 01/19/20 Precautions Precautions Heart attack 1987, Heart disease, CABG x 2, RPP 2 5 stent, Hernia, Back pain, Controlled blood pressure. PT-OP-B Current Condition Start: 01/15/20 19:59 Freq: Status: Active Protocol: Document 01/19/20 09:51 LRN (Rec: 01/19/20 10:45 LRN [id number]) Current Condition History of Current Condition Onset Date 5 yrs ago, worsened in the past 6 months. Current Complaints Pain with activity and movement of the R hip. History of Current Condition Gradual onset of R hip pain for the past 5 yrs. R RIO surgery planned on Feb 15, 2020. Sister in law will take care of 3 weeks post op and then daughter will be caregiver for another 3 weeks. Pt plans to go to a rehab center after surgery. Prior Treatments and Tests None Future Testing and Treatments Planned R RIO surgery planned on Feb 15, 2020 with planned post op PT. Treatment Goals Patient/Caregiver Goals Pt goal is to complete pre-op PT assignment. Pt goal post operatively is to walk normal without a cane and to be able to walk dog. Prior Functional Status Baseline Function- ADL's Independent Baseline Function- Mobility Independent Baseline Function- Gait Walked without an assistive device 5 yrs ago. Baseline Function- Other Walked dog 1 mile daily 2 yrs ago. Played baseball in [employer] league 5 yrs ago. Current Functional Impairments (Reported) Functional Limitations- Mobility/Gait Limited in walking distance with cane on the left for past 6 months. Antalgic gait. Functional Limitations- Other Can't walk dog anymore due to pain. Personal Factors Other Personal Factors That May Effect Caregiver for spouse Therapy/Recovery Hx of heart disease with heart attack in 1987 and CABG x 2 and 5 stents. PT-OP-C Subjective Start: 01/15/20 19:59 Freq: Status: Active Protocol: Document 01/26/20 09:52 LRN (Rec: 01/26/20 10:33 LRN [id number]) OP-PT Subjective Patient Comments Patient Comments Walked [employer] and did errands and did exercises, so sore today. Pt recalled 3/3 RIO precautions. PT-OP-E Functional Tests Start: 01/15/20 19:59 Freq: Status: Active Protocol: Document 01/22/20 11:17 LRN (Rec: 01/22/20 12:24 LRN [id number]) Functional Tests Timed Up and Go (TUG) Score 11.05 Comments Using hands to sit time was 12 .03 secs. TUG Impairment Rating 1 to <20% Impaired (Score 11) PT-OP-G Mobility & Gait Start: 01/15/20 19:59 Freq: Status: Active Protocol: Document 01/19/20 09:51 LRN (Rec: 01/19/20 18:25 LRN [id number]) OP Mobility Evaluation Bed Mobility Supine to and from Sit Independent Transfers Sit to Stand Independent with use of UE's Bed to Chair Transfers Independent without assistive device walking a few steps to plinth. OP Gait Assessment Gait Gait Assistance Required: Independent Assistive Devices Assistive Device Straight Cane Gait Deviations General Gait Pattern Antalgic Factors Limiting Gait Function Factors Limiting Gait Function Decreased Strength,Pain Stair Climbing Evaluation Evaluation Level of Assist On Stairs Independent Devices Stair Climbing Assistive Devices Left Railing,Right Railing Technique/Endurance Stair Climbing Direction Ascend and Descend Stair Climbing Technique Step Over Step Comments Stair Climbing Comments Pt ambs with use of 1 rail on opposite side ascending vs descending. PT-OP-J Posture/Palpation/Skin Start: 01/15/20 19:59 Freq: Status: Active Protocol: Document 01/19/20 09:51 LRN (Rec: 01/19/20 18:25 LRN [id number]) Posture Evaluation Position Standing T-Spine Posture Increased Kyphosis L-Spine Posture Flattened,Shifted Left Knee Posture (R) Excess Flexion Ankle/Foot Posture (L) Calcaneal Inversion Comments Posture Comments R leg is short. Posterior Spinous processes ~ T7-T9. PT-OP-K Range of Motion Start: 01/15/20 19:59 Freq: Status: Active Protocol: Document 01/19/20 09:51 LRN (Rec: 01/19/20 18:25 LRN [id number]) Hip Goniometric Range of Motion Hip Right Active Extension 3 Abduction 12 Left Active Straight Leg Raise 5 Abduction 22 Right Passive Testing Position Supine Flexion w/Knee Flexed 105 Abduction 17 Internal Rotation 19 External Rotation 19 Left Passive Testing Position Supine Flexion w/Knee Flexed 102 Abduction 24 Internal Rotation 20 External Rotation 35 PT-OP-M Strength Start: 01/15/20 19:59 Freq: Status: Active Protocol: Document 01/19/20 09:51 LRN (Rec: 01/19/20 18:25 LRN [id number]) Hip Strength Hip Manual Muscle Testing Right Abduction 3 Fair Comments Hip strength is 5/5 except as indicated above. Left Comments Hip strength is 5/5. PT-OP-Q Treatments Start: 01/15/20 19:59 Freq: Status: Active Protocol: Document 01/26/20 09:52 LRN (Rec: 01/26/20 10:33 LRN [id number]) Gym Equipment Shuttle Recovery Unilateral Squats Details R legged squat Resistance 62 Shuttle Recovery Platform Stable Reps/Time 15x Therapeutic Exercises Supine Exercises Leg roll outs Supine Exercise Name Leg roll outs. Side bilateral Reps/Minutes 10x Fig 4 stretch Supine Exercise Name Fig 4 stretch f/b active stretch Side right Reps/Minutes 3' Sitting Exercises Ankle EV Sitting Exercise Name Ankle EV Side right Reps/Minutes 15x3 Ankle DF Sitting Exercise Name Ankle DF Side right Equipment Used Lev 1 TBand Reps/Minutes 15x3 L ankle IV Sitting Exercise Name Ankle IV Side right Resistance 15 x 3 Therapeutic Activity Therapeutic Activity Sit <-> Supine Name Sit <-> Supine Reps/Minutes 3' Comments Education needed of precaution of movement awareness. Self-Care/Home Management Treatment Education Patient Education Joint Protection Other Education Reviewed RIO precautions. Pt able to identify all 3. Issued & discussed edema management handouts of using ice and RICE technique. Activities Self-Care/Home Management Activities Issued & reviewed HEP: ankle strengthening and LE roll in/ outs, hip ER stretch. Issued Lev 1 T-Band with I/S designated which ex's are appropriate for post surgery. PT-OP-T Assessment and Plan Start: 01/15/20 19:59 Freq: Status: Active Protocol: Document 01/26/20 09:52 LRN (Rec: 01/26/20 10:33 LRN [id number]) Physical Therapy Assessment Goals Four Impairment Pt lacks appropriate knowledge of post op RIO precautions/ posture. Short Term Goal (STG) Pt will be educated in post op R RIO precautions and proper sitting posture. STG Duration 01/29/20 (01/22/20: MET GOAL) Intermediate Goal (LTG) Pt will be able to demonstrate knowledge of RIO precautions for post-op R RIO care. LTG Duration 02/12/20 (01/26/20: MET GOAL) Three Impairment Antalgic gait Short Term Goal (STG) Pt will be educated in proper stair ambulation as needed for post-op R RIO care. STG Duration 01/29/20 (01/22/20: MET GOAL) Intermediate Goal (LTG) Pt will be educated in proper use of walker as needed for post-op R RIO care. LTG Duration 02/12/20 (01/22/20: MET GOAL) Two Impairment Pt lacks proper knowledge of transfer techniques post-op care Intermediate Goal (LTG) Pt will be able to demonstrate proper transfer technique for post-op R RIO care. LTG Duration 02/12/20 (01/26/20: MET GOAL) One Impairment Pt partially lacks a self care pre-operative HEP. Short Term Goal (STG) Pt will be independent with a ROM self care HEP. STG Duration 01/29/20 Hand Upper And Bottom Lacer Goal (LTG) Pt will be independent in a self care pre-operative HEP, including hip strengthening exercises for flex & ext and ankle strengthening and standing balance exercises. LTG Duration 02/12/20 (01/22/20: Progressing) Progress Towards Goals Progress Comments Goal #2 MET LTG #4 MET Assessment Summary Assessment Pt shows good understanding of RIO precautions and proper transfer techniques if s/p RIO . He has good awareness of precautions as evidenced by questions regarding ankle ex's that were not to be appropriate s/p RIO. One more time to review ankle ex's and hip mobility ex. Physical Therapy Plan Frequency and Duration Frequency of Treatment 2x/week > 1x/week Plan of Care Start Date 01/19/20 Plan of Care End Date 02/12/20 Next Visit Focus/Plan Next Note Type Treatment Note Next Visit Plan Pt to be seen pre-op R RIO for strengthening, stretching, HEP, PROM/AROM. Review ankle strengthening HEP with T-Band & R LE ROM ex. Strengthening on shuttle. Check that the pt is tentatively set up for post-operative R RIO schedule, but will need a referral to begin his post operative rehab program. Pt to be put on hold for therapy until post op , or discharged to HEP.
--- NOTE | 2020-01-29 15:49 | PT.OTN ---
Current Diagnoses Unilateral primary osteoarthritis, right hip (01/29/20) Other abnormalities of gait and mobility (01/29/20) Physical Therapy Treatment Note PT-OP-A Visit Information Start: 01/15/20 19:59 Freq: Status: Active Protocol: Document 01/29/20 10:37 LRN (Rec: 01/29/20 11:21 LRN [id number]) Out-Patient Physical Therapy Visit Information Visit Information Visit Type Treatment Note Visit Start Time 10:37 Visit Stop Time 11:18 Total Visit Minutes 41 Visit Number 4 Evaluation Information Evaluation Date 01/19/20 Precautions Precautions Heart attack 1987, Heart disease, CABG x 2, RPP 2 5 stent, Hernia, Back pain, Controlled blood pressure. PT-OP-B Current Condition Start: 01/15/20 19:59 Freq: Status: Active Protocol: Document 01/19/20 09:51 LRN (Rec: 01/19/20 10:45 LRN [id number]) Current Condition History of Current Condition Onset Date 5 yrs ago, worsened in the past 6 months. Current Complaints Pain with activity and movement of the R hip. History of Current Condition Gradual onset of R hip pain for the past 5 yrs. R RIO surgery planned on Feb 15, 2020. Sister in law will take care of 3 weeks post op and then daughter will be caregiver for another 3 weeks. Pt plans to go to a rehab center after surgery. Prior Treatments and Tests None Future Testing and Treatments Planned R RIO surgery planned on Feb 15, 2020 with planned post op PT. Treatment Goals Patient/Caregiver Goals Pt goal is to complete pre-op PT assignment. Pt goal post operatively is to walk normal without a cane and to be able to walk dog. Prior Functional Status Baseline Function- ADL's Independent Baseline Function- Mobility Independent Baseline Function- Gait Walked without an assistive device 5 yrs ago. Baseline Function- Other Walked dog 1 mile daily 2 yrs ago. Played baseball in [employer] league 5 yrs ago. Current Functional Impairments (Reported) Functional Limitations- Mobility/Gait Limited in walking distance with cane on the left for past 6 months. Antalgic gait. Functional Limitations- Other Can't walk dog anymore due to pain. Personal Factors Other Personal Factors That May Effect Caregiver for spouse Therapy/Recovery Hx of heart disease with heart attack in 1987 and CABG x 2 and 5 stents. PT-OP-C Subjective Start: 01/15/20 19:59 Freq: Status: Active Protocol: Document 01/29/20 10:37 LRN (Rec: 01/29/20 11:21 LRN [id number]) OP-PT Subjective Patient Comments Patient Comments Has not checked into raised toilet seat or FWW. Has shower seat and pharmacy clinical specialist. PT-OP-E Functional Tests Start: 01/15/20 19:59 Freq: Status: Active Protocol: Document 01/22/20 11:17 LRN (Rec: 01/22/20 12:24 LRN [id number]) Functional Tests Timed Up and Go (TUG) Score 11.05 Comments Using hands to sit time was 12 .03 secs. TUG Impairment Rating 1 to <20% Impaired (Score 11) PT-OP-G Mobility & Gait Start: 01/15/20 19:59 Freq: Status: Active Protocol: Document 01/19/20 09:51 LRN (Rec: 01/19/20 18:25 LRN [id number]) OP Mobility Evaluation Bed Mobility Supine to and from Sit Independent Transfers Sit to Stand Independent with use of UE's Bed to Chair Transfers Independent without assistive device walking a few steps to plinth. OP Gait Assessment Gait Gait Assistance Required: Independent Assistive Devices Assistive Device Straight Cane Gait Deviations General Gait Pattern Antalgic Factors Limiting Gait Function Factors Limiting Gait Function Decreased Strength,Pain Stair Climbing Evaluation Evaluation Level of Assist On Stairs Independent Devices Stair Climbing Assistive Devices Left Railing,Right Railing Technique/Endurance Stair Climbing Direction Ascend and Descend Stair Climbing Technique Step Over Step Comments Stair Climbing Comments Pt ambs with use of 1 rail on opposite side ascending vs descending. PT-OP-J Posture/Palpation/Skin Start: 01/15/20 19:59 Freq: Status: Active Protocol: Document 01/19/20 09:51 LRN (Rec: 01/19/20 18:25 LRN [id number]) Posture Evaluation Position Standing T-Spine Posture Increased Kyphosis L-Spine Posture Flattened,Shifted Left Knee Posture (R) Excess Flexion Ankle/Foot Posture (L) Calcaneal Inversion Comments Posture Comments R leg is short. Posterior Spinous processes ~ T7-T9. PT-OP-K Range of Motion Start: 01/15/20 19:59 Freq: Status: Active Protocol: Document 01/19/20 09:51 LRN (Rec: 01/19/20 18:25 LRN [id number]) Hip Goniometric Range of Motion Hip Right Active Extension 3 Abduction 12 Left Active Straight Leg Raise 5 Abduction 22 Right Passive Testing Position Supine Flexion w/Knee Flexed 105 Abduction 17 Internal Rotation 19 External Rotation 19 Left Passive Testing Position Supine Flexion w/Knee Flexed 102 Abduction 24 Internal Rotation 20 External Rotation 35 PT-OP-M Strength Start: 01/15/20 19:59 Freq: Status: Active Protocol: Document 01/19/20 09:51 LRN (Rec: 01/19/20 18:25 LRN [id number]) Hip Strength Hip Manual Muscle Testing Right Abduction 3 Fair Comments Hip strength is 5/5 except as indicated above. Left Comments Hip strength is 5/5. PT-OP-Q Treatments Start: 01/15/20 19:59 Freq: Status: Active Protocol: Document 01/29/20 10:37 LRN (Rec: 01/29/20 11:21 LRN [id number]) Therapeutic Exercises Supine Exercises Leg roll outs Supine Exercise Name Leg roll outs. Side bilateral Reps/Minutes 10x Fig 4 stretch Supine Exercise Name Fig 4 stretch f/b active stretch Side right Reps/Minutes 3' Bridge Supine Exercise Name Bridge Side right Reps/Minutes 30x SLR Supine Exercise Name SLR Side right Reps/Minutes 10x 3 Heel slides Supine Exercise Name Heel slides Side right Reps/Minutes 30x Hip AB Supine Exercise Name Hip AB Side right Reps/Minutes 30 x Sitting Exercises Ankle EV Sitting Exercise Name Ankle EV Side right Reps/Minutes 15x3 Comments Xtra time for phy & v. cuing to perform; therefore issued pic handout of ex Ankle DF Sitting Exercise Name Ankle DF Side right Equipment Used Lev 1 TBand Reps/Minutes 15x3 Comments Xtra time for phy & v. cuing to perform; therefore issued pic handout of ex L ankle IV Sitting Exercise Name Ankle IV Side right Resistance 15 x 3 Comments Xtra time for phy & v. cuing to perform; therefore issued pic handout of ex Standing Exercises Hip Flex Standing Exercise Name March Side bilateral Reps/Minutes 15x each Hip AB Standing Exercise Name Side stepping R & L Side right Reps/Minutes 2 lengths of // bars Hip Ext Standing Exercise Name Hip Ext Side bilateral Reps/Minutes 30x Mini squats Standing Exercise Name Mini squats Reps/Minutes 30x Self-Care/Home Management Treatment Education Patient Education Joint Protection Other Education Reviewed RIO precautions. Pt able to identify all 3. Activities Self-Care/Home Management Activities Issued handout for HEP: Ankle strengthening to be done only pre surgery time. Reviewed home ex's to focus on and recommended pt follow RICE protocol as much as possible to decrease swelling after surgery. Reviewed pt to get RTS & FWW prior to surgery. PT-OP-T Assessment and Plan Start: 01/15/20 19:59 Freq: Status: Active Protocol: Document 01/29/20 10:37 LRN (Rec: 01/29/20 11:21 LRN [id number]) Physical Therapy Assessment Rehab Potential Rehabilitation Potential Excellent Evaluation Complexity Number of Personal Factors/Comorbidities 1-2 Number of Body Systems Impaired 4 or More Clinical Presentation at Evaluation Evolving Impairments Impairments Activity Tolerance,Balance, Gait,Pain,Posture,ROM,Strength ,Transfers Goals Four Impairment Pt lacks appropriate knowledge of post op RIO precautions/ posture. Short Term Goal (STG) Pt will be educated in post op R RIO precautions and proper sitting posture. STG Duration 01/29/20 (01/22/20: MET GOAL) Textiles Printer Goal (LTG) Pt will be able to demonstrate knowledge of RIO precautions for post-op R RIO care. LTG Duration 02/12/20 (01/26/20: MET GOAL) Three Impairment Antalgic gait Short Term Goal (STG) Pt will be educated in proper stair ambulation as needed for post-op R RIO care. STG Duration 01/29/20 (01/22/20: MET GOAL) Textiles Printer Goal (LTG) Pt will be educated in proper use of walker as needed for post-op R RIO care. LTG Duration 02/12/20 (01/22/20: MET GOAL) Two Impairment Pt lacks proper knowledge of transfer techniques post-op care [facility] Goal (LTG) Pt will be able to demonstrate proper transfer technique for post-op R RIO care. LTG Duration 02/12/20 (01/26/20: MET GOAL) One Impairment Pt partially lacks a self care pre-operative HEP. Short Term Goal (STG) Pt will be independent with a ROM self care HEP. STG Duration 01/29/20 (01/29/20: MET GOAL) [facility] Goal (LTG) Pt will be independent in a self care post-operative HEP, including hip strengthening exercises for flex & ext and ankle strengthening and standing balance exercises. LTG Duration 05/28/19 Progress Towards Goals Progress Comments Goals 2-[address] MET. LTG: NOT MET. To be met post surgical. Other goals to be set post- surgical. Assessment Summary Assessment New POC needed today for post op timeframe and for LTG of HEP to include post op exercises. Other post op goals to be set on pt's return to PT after surgery. Today, pt shows good understanding of RIO precautions. Good tolerance to exercise with weakness primarily with R hip AB, and decreased hip mobility with probable weakness with R hip ER, ext and AB. He is ready to ex on his own until after his R RIO surgery. Physical Therapy Plan Frequency and Duration Frequency of Treatment 2x/Week Plan of Care Start Date 01/19/20 Plan of Care End Date 05/28/20 Therapeutic Interventions Therapeutic Interventions Balance Training,Gait Training ,Home Exercise Program, Neuromuscular Re-education, Patient/Caregiver Education, Self-Care/Home Management,Soft Tissue Mobilization, Therapeutic Activities, Therapeutic Exercises Modalities Cold Pack/Ice Massage Next Visit Focus/Plan Next Note Type Treatment Note Next Visit Plan Pt will return for reassessment and start of post -op RIO rehabilitation after surgery; therefore reset post op goals with new POC next visit.
--- NOTE | 2020-01-29 15:49 | PT.OPPOC ---
Physical, Occupational & Speech Therapy At [facility] Current Diagnoses Unilateral primary osteoarthritis, right hip (01/29/20) Other abnormalities of gait and mobility (01/29/20) Visit Care Team Role Provider Type Terry Rogers MD Primary Care Provider Physician Specialty: Internal Medicine Address: [address] [place] [address], [id number] Email: [email or web address] Jourdan Rios MD Attending Provider Non-Staff Referring Provider Specialty: Orthopedic Surgery Address: [address] [place] [address], [phone] Email: Plan Of Care PT-OP-T Assessment and Plan Start: 01/15/20 19:59 Freq: Status: Active Protocol: Document 01/29/20 10:37 LRN (Rec: 01/29/20 11:21 LRN [id number]) Physical Therapy Assessment Rehab Potential Rehabilitation Potential Excellent Evaluation Complexity Number of Personal Factors/Comorbidities 1-2 Number of Body Systems Impaired 4 or More Clinical Presentation at Evaluation Evolving Impairments Impairments Activity Tolerance,Balance, Gait,Pain,Posture,ROM,Strength ,Transfers Goals Four Impairment Pt lacks appropriate knowledge of post op RIO precautions/ posture. Short Term Goal (STG) Pt will be educated in post op R RIO precautions and proper sitting posture. STG Duration 01/29/20 (01/22/20: MET GOAL) Professor Of Theatre Goal (LTG) Pt will be able to demonstrate knowledge of RIO precautions for post-op R RIO care. LTG Duration 02/12/20 (01/26/20: MET GOAL) Three Impairment Antalgic gait Short Term Goal (STG) Pt will be educated in proper stair ambulation as needed for post-op R RIO care. STG Duration 01/29/20 (01/22/20: MET GOAL) [facility] Goal (LTG) Pt will be educated in proper use of walker as needed for post-op R RIO care. LTG Duration 02/12/20 (01/22/20: MET GOAL) Two Impairment Pt lacks proper knowledge of transfer techniques post-op care Professor Of Theatre Goal (LTG) Pt will be able to demonstrate proper transfer technique for post-op R RIO care. LTG Duration 02/12/20 (01/26/20: MET GOAL) One Impairment Pt partially lacks a self care pre-operative HEP. Short Term Goal (STG) Pt will be independent with a ROM self care HEP. STG Duration 01/29/20 (01/29/20: MET GOAL) [facility] Goal (LTG) Pt will be independent in a self care post-operative HEP, including hip strengthening exercises for flex & ext and ankle strengthening and standing balance exercises. LTG Duration 05/28/19 Progress Towards Goals Progress Comments Goals 2-[address] MET. LTG: NOT MET. To be met post surgical. Other goals to be set post- surgical. Assessment Summary Assessment New POC needed today for post op timeframe and for LTG of HEP to include post op exercises. Other post op goals to be set on pt's return to PT after surgery. Today, pt shows good understanding of RIO precautions. Good tolerance to exercise with weakness primarily with R hip AB, and decreased hip mobility with probable weakness with R hip ER, ext and AB. He is ready to ex on his own until after his R RIO surgery. Physical Therapy Plan Frequency and Duration Frequency of Treatment 2x/Week Plan of Care Start Date 01/19/20 Plan of Care End Date 05/28/20 Therapeutic Interventions Therapeutic Interventions Balance Training,Gait Training ,Home Exercise Program, Neuromuscular Re-education, Patient/Caregiver Education, Self-Care/Home Management,Soft Tissue Mobilization, Therapeutic Activities, Therapeutic Exercises Modalities Cold Pack/Ice Massage Next Visit Focus/Plan Next Note Type Treatment Note Next Visit Plan Pt will return for reassessment and start of post -op RIO rehabilitation after surgery; therefore reset post op goals with new POC next visit. Plan of Care Dates Plan of Care Start Date 01/19/20 Plan of Care End Date 05/28/20 Electronically Signed by: Brielle Darling, PT 01/29/20 [id number] Please Sign and Return: I have reviewed this Plan of Care and certify that the skilled therapy services above are required to meet the patient?s needs. Physician Signature Date Printed Name and Credentials Clinical Instructor Signature Printed Name and Credentials
--- NOTE | 2020-02-22 16:38 | PT.OTRE ---
Current Diagnoses Unilateral primary osteoarthritis, right hip (02/22/20) Other abnormalities of gait and mobility (02/22/20) Visit Care Team Role Provider Type Terry Rogers MD Primary Care Provider Physician Specialty: Internal Medicine Address: [address] [place] [address], [phone] Email: [email or web address] Jourdan Rios MD Attending Provider Non-Staff Referring Provider Specialty: Orthopedic Surgery Address: [address] [place] [address], [phone] Email: Physical Therapy Re-Evaluation PT-OP-A Visit Information Start: 01/15/20 19:59 Freq: Status: Active Protocol: Document 02/22/20 14:14 LRN (Rec: 02/22/20 15:06 LRN [id number]) Out-Patient Physical Therapy Visit Information Visit Information Visit Type Re-Evaluation Visit Start Time 14:14 Visit Stop Time 15:05 Total Visit Minutes 51 Visit Number 5 Evaluation Information Evaluation Date 01/19/20 Precautions Precautions Heart attack 1987, Heart disease, CABG x 2, RPP 2 5 stent, Hernia, Back pain, Controlled blood pressure. PT-OP-B Current Condition Start: 01/15/20 19:59 Freq: Status: Active Protocol: Document 02/22/20 14:14 LRN (Rec: 02/22/20 15:06 LRN [id number]) Current Condition History of Current Condition Onset Date 02/15/20 Current Complaints Not painful with meds. R Leg weak,primary c/o is needs FWW to walk. History of Current Condition R RIO surgery in [place]. Hospitalized 3 days due to cardiac issues associated to medications and was having angina. Cardiac issue resolved but is going to be put on a heart monitor in 2 days. The following day will have PT. He reports no problems since the medications were ironed out. Treatment Goals Patient/Caregiver Goals Pt goal: Walk normally around house and with shopping. 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 Using raised toilet seat with handles for toileting. Personal Factors Other Personal Factors That May Effect Caregiver for spouse Therapy/Recovery Hx of heart disease with heart attack in 1987 and CABG x 2 and 5 stents. PT-OP-C Subjective Start: 01/15/20 19:59 Freq: Status: Active Protocol: Document 02/22/20 14:14 LRN (Rec: 02/22/20 15:06 LRN [id number]) OP-PT Subjective Patient Comments Patient Comments Took pain med this morning at 8a. PT-OP-E Functional Tests Start: 01/15/20 19:59 Freq: Status: Active Protocol: Document 02/22/20 14:14 LRN (Rec: 02/22/20 15:06 LRN [id number]) Functional Tests Timed Up and Go (TUG) Score 17 Comments FWW, use of hands TUG Impairment Rating 60 to <80% Impaired (Score 16- 17) PT-OP-G Mobility & Gait Start: 01/15/20 19:59 Freq: Status: Active Protocol: Document 02/22/20 14:14 LRN (Rec: 02/22/20 15:06 LRN [id number]) OP Gait Assessment Gait Gait Assistance Required: Independent Distance (Feet) 150 Able to Maintain Weight Bearing Status Yes During Gait Assistive Devices Assistive Device 4 Wheeled Walker Gait Deviations General Gait Pattern Antalgic,Flexed Trunk,Narrow Based Gait Factors Limiting Gait Function Factors Limiting Gait Function Decreased Activity Tolerance Comments Gait Comments Pt circumducts RLE during swing through phase. Stair Climbing Evaluation Evaluation Level of Assist On Stairs Independent Devices Stair Climbing Assistive Devices Left Railing,Right Railing Technique/Endurance Stair Climbing Direction Ascend and Descend Stair Climbing Technique Step to Step Number of Steps Climbed 4 Stair Climbing Set # Repetitions (reps) 1 PT-OP-J Posture/Palpation/Skin Start: 01/15/20 19:59 Freq: Status: Active Protocol: Document 01/19/20 09:51 LRN (Rec: 01/19/20 18:25 LRN [id number]) Posture Evaluation Position Standing T-Spine Posture Increased Kyphosis L-Spine Posture Flattened,Shifted Left Knee Posture (R) Excess Flexion Ankle/Foot Posture (L) Calcaneal Inversion Comments Posture Comments R leg is short. Posterior Spinous processes ~ T7-T9. PT-OP-K Range of Motion Start: 01/15/20 19:59 Freq: Status: Active Protocol: Document 02/22/20 14:14 LRN (Rec: 02/22/20 15:06 LRN [id number]) Hip Goniometric Range of Motion Hip Measured in Degrees Right Active Hip ROM WFL No Testing Position Supine Flexion w/Knee Flexed 90 Abduction 22 Left Active Hip ROM WFL Yes Testing Position Supine Flexion w/Knee Flexed 42 Abduction 15 Ankle and Foot Goniometric Range of Motion Ankle and Foot Measured in Degrees Right Active Dorsiflexion with Knee Extended 9 Left Active Dorsiflexion with Knee Extended 5 PT-OP-M Strength Start: 01/15/20 19:59 Freq: Status: Active Protocol: Document 02/22/20 14:14 LRN (Rec: 02/22/20 15:06 LRN [id number]) Hip Strength Hip Manual Muscle Testing Right Abduction 3 Fair Comments Hip strength is 5/5 except as indicated above. Left Flexion (L2) 3- Fair- Abduction 2 Poor External Rotation 2 Poor PT-OP-Q Treatments Start: 01/15/20 19:59 Freq: Status: Active Protocol: Document 02/22/20 14:14 LRN (Rec: 02/22/20 15:06 LRN [id number]) Therapeutic Exercises Supine Exercises Leg roll outs Supine Exercise Name BKFO Side bilateral Reps/Minutes 10x 2 Bridge Supine Exercise Name Bridge Side bilateral Reps/Minutes 8x SLR Supine Exercise Name SLR Side right Reps/Minutes 10x Comments With Assist during last part of ex Heel slides Supine Exercise Name Heel slides Side right Reps/Minutes 10x 2 Hip AB Supine Exercise Name Hip AB Side right Reps/Minutes 10x 2 Self-Care/Home Management Treatment Education Patient Education Joint Protection Other Education Reviewed RIO precautions. Pt able to identify all 3. PT-OP-R Modalities Start: 01/15/20 19:59 Freq: Status: Active Protocol: Document 02/22/20 14:14 LRN (Rec: 02/22/20 15:06 LRN [id number]) Hot Pack/Cold Pack Treatment Cold Pack Location R hip Patient Position Supine Treatment Duration (minutes) 10 Patient Tolerance Good PT-OP-T Assessment and Plan Start: 01/15/20 19:59 Freq: Status: Active Protocol: Document 02/22/20 14:14 LRN (Rec: 02/22/20 15:06 LRN [id number]) Physical Therapy Assessment Goals Four Impairment Decreased R LE strength and decreased function . Short Term Goal (STG) Indep SLR without difficulty to be able to transfer in/out of bed with ease. STG Duration 02/05/20 Slat Twister Goal (LTG) Increase R LE strength to improve pt mobility function per LEFS score no less than 39 (75% of pre-operative ability ). LTG Duration 05/22/20 Three Impairment Requires use of FWW for gait. Short Term Goal (STG) Amb with normal gait and posture with FWW. STG Duration 02/29/20 Custodial Goal (LTG) Pt will be able to walk without use of assistive device and normal gait pattern around his home and with shopping. LTG Duration 05/22/20 Two Impairment Decreased stability with gait (TUG 17 secs) Short Term Goal (STG) Pt will be able to ambulate on level with use of cane or no assistive device. STG Duration 03/19/20 Slat Twister Goal (LTG) Improve stability with gait per TUG score of 11 (1<20% impaire) or less. LTG Duration 05/22/20 One Impairment Lacks appropriate post op HEP Slat Twister Goal (LTG) Pt will be independent in a self care post-operative HEP, including hip strengthening exercises for flex & ext and ankle strengthening and standing balance exercises. LTG Duration 05/22/20 Assessment Summary Assessment Pt presents with good RLE mobility and good knowledge of his R RIO precautions. He demonstrates good knowledge of his R RIO precautions during transfers and gait. The pt was having very little discomfort today and is doing well with his home program. Expect pt's rehab to progress very well without complications. Pt will benefit from continued skilled physical therapy to improve his safety with ambulation and to improve his functional gait with increased RLE strength and mobility. Physical Therapy Plan Frequency and Duration Frequency of Treatment 2x/Week Plan of Care Start Date 02/22/20 Plan of Care End Date 05/22/20 Next Visit Focus/Plan Next Note Type Treatment Note Next Visit Plan R RIO rehab. Progress R hip strengthening. Teach proper posture with gait and try advancing to cane. Practice gait and stair ambulation.
--- NOTE | 2020-02-22 16:39 | PT.OPPOC ---
Physical, Occupational & Speech Therapy At [facility] Current Diagnoses Unilateral primary osteoarthritis, right hip (02/22/20) Other abnormalities of gait and mobility (02/22/20) Visit Care Team Role Provider Type Terry Rogers MD Primary Care Provider Physician Specialty: Internal Medicine Address: [address] [place] [address], [phone] Email: [email or web address] Jourdan Rios MD Attending Provider Non-Staff Referring Provider Specialty: Orthopedic Surgery Address: [address] [place] [address], [phone] Email: Plan Of Care PT-OP-T Assessment and Plan Start: 01/15/20 19:59 Freq: Status: Active Protocol: Document 02/22/20 14:14 LRN (Rec: 02/22/20 15:06 LRN [id number]) Physical Therapy Assessment Goals Four Impairment Decreased R LE strength and decreased function . Short Term Goal (STG) Indep SLR without difficulty to be able to transfer in/out of bed with ease. STG Duration 02/05/20 Promotions Manager Goal (LTG) Increase R LE strength to improve pt mobility function per LEFS score no less than 39 (75% of pre-operative ability ). LTG Duration 05/22/20 Three Impairment Requires use of FWW for gait. Short Term Goal (STG) Amb with normal gait and posture with FWW. STG Duration 02/29/20 Promotions Manager Goal (LTG) Pt will be able to walk without use of assistive device and normal gait pattern around his home and with shopping. LTG Duration 05/22/20 Two Impairment Decreased stability with gait (TUG 17 secs) Short Term Goal (STG) Pt will be able to ambulate on level with use of cane or no assistive device. STG Duration 03/19/20 Promotions Manager Goal (LTG) Improve stability with gait per TUG score of 11 (1<20% impaire) or less. LTG Duration 05/22/20 One Impairment Lacks appropriate post op HEP Residential Goal (LTG) Pt will be independent in a self care post-operative HEP, including hip strengthening exercises for flex & ext and ankle strengthening and standing balance exercises. LTG Duration 05/22/20 Assessment Summary Assessment Pt presents with good RLE mobility and good knowledge of his R RIO precautions. He demonstrates good knowledge of his R RIO precautions during transfers and gait. The pt was having very little discomfort today and is doing well with his home program. Expect pt's rehab to progress very well without complications. Pt will benefit from continued skilled physical therapy to improve his safety with ambulation and to improve his functional gait with increased RLE strength and mobility. Physical Therapy Plan Frequency and Duration Frequency of Treatment 2x/Week Plan of Care Start Date 02/22/20 Plan of Care End Date 05/22/20 Next Visit Focus/Plan Next Note Type Treatment Note Next Visit Plan R RIO rehab. Progress R hip strengthening. Teach proper posture with gait and try advancing to cane. Practice gait and stair ambulation. Plan of Care Dates Plan of Care Start Date 02/22/20 Plan of Care End Date 05/22/20 Electronically Signed by: Brielle Darling, PT 02/22/20 2188 Please Sign and Return: I have reviewed this Plan of Care and certify that the skilled therapy services above are required to meet the patient?s needs. Physician Signature Date Printed Name and Credentials Clinical Instructor Signature Printed Name and Credentials
--- NOTE | 2020-02-25 15:04 | PT.OTN ---
Current Diagnoses Unilateral primary osteoarthritis, right hip (02/25/20) Other abnormalities of gait and mobility (02/25/20) Physical Therapy Treatment Note PT-OP-A Visit Information Start: 01/15/20 19:59 Freq: Status: Active Protocol: Document 02/25/20 14:18 LRN (Rec: 02/25/20 15:03 LRN [id number]) Out-Patient Physical Therapy Visit Information Visit Information Visit Type Treatment Note Visit Start Time 14:18 Visit Stop Time 15:06 Total Visit Minutes 48 Visit Number 6 Evaluation Information Evaluation Date 01/19/20 Precautions Precautions Heart attack 1987, Heart disease, CABG x 2, RPP 2 5 stent, Hernia, Back pain, Controlled blood pressure. PT-OP-B Current Condition Start: 01/15/20 19:59 Freq: Status: Active Protocol: Document 02/22/20 14:14 LRN (Rec: 02/22/20 15:06 LRN [id number]) Current Condition History of Current Condition Onset Date 02/15/20 Current Complaints Not painful with meds. R Leg weak,primary c/o is needs FWW to walk. History of Current Condition R RIO surgery in [place]. Hospitalized 3 days due to cardiac issues associated to medications and was having angina. Cardiac issue resolved but is going to be put on a heart monitor in 2 days. The following day will have PT. He reports no problems since the medications were ironed out. Treatment Goals Patient/Caregiver Goals Pt goal: Walk normally around house and with shopping. 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 Using raised toilet seat with handles for toileting. Personal Factors Other Personal Factors That May Effect Caregiver for spouse Therapy/Recovery Hx of heart disease with heart attack in 1987 and CABG x 2 and 5 stents. PT-OP-C Subjective Start: 01/15/20 19:59 Freq: Status: Active Protocol: Document 02/25/20 14:18 LRN (Rec: 02/25/20 15:03 LRN [id number]) OP-PT Subjective Patient Comments Patient Comments Sore and stiff after riding in a car for 2 hrs and was really sore and stiff. PT-OP-E Functional Tests Start: 01/15/20 19:59 Freq: Status: Active Protocol: Document 02/22/20 14:14 LRN (Rec: 02/22/20 15:06 LRN [id number]) Functional Tests Timed Up and Go (TUG) Score 17 Comments FWW, use of hands TUG Impairment Rating 60 to <80% Impaired (Score 16- 17) PT-OP-G Mobility & Gait Start: 01/15/20 19:59 Freq: Status: Active Protocol: Document 02/22/20 14:14 LRN (Rec: 02/22/20 15:06 LRN [id number]) OP Gait Assessment Gait Gait Assistance Required: Independent Distance (Feet) 150 Able to Maintain Weight Bearing Status Yes During Gait Assistive Devices Assistive Device 4 Wheeled Walker Gait Deviations General Gait Pattern Antalgic,Flexed Trunk,Narrow Based Gait Factors Limiting Gait Function Factors Limiting Gait Function Decreased Activity Tolerance Comments Gait Comments Pt circumducts RLE during swing through phase. Stair Climbing Evaluation Evaluation Level of Assist On Stairs Independent Devices Stair Climbing Assistive Devices Left Railing,Right Railing Technique/Endurance Stair Climbing Direction Ascend and Descend Stair Climbing Technique Step to Step Number of Steps Climbed 4 Stair Climbing Set # Repetitions (reps) 1 PT-OP-J Posture/Palpation/Skin Start: 01/15/20 19:59 Freq: Status: Active Protocol: Document 01/19/20 09:51 LRN (Rec: 01/19/20 18:25 LRN [id number]) Posture Evaluation Position Standing T-Spine Posture Increased Kyphosis L-Spine Posture Flattened,Shifted Left Knee Posture (R) Excess Flexion Ankle/Foot Posture (L) Calcaneal Inversion Comments Posture Comments R leg is short. Posterior Spinous processes ~ T7-T9. PT-OP-K Range of Motion Start: 01/15/20 19:59 Freq: Status: Active Protocol: Document 02/22/20 14:14 LRN (Rec: 02/22/20 15:06 LRN [id number]) Hip Goniometric Range of Motion Hip Right Active Hip ROM WFL No Testing Position Supine Flexion w/Knee Flexed 90 Abduction 22 Left Active Hip ROM WFL Yes Testing Position Supine Flexion w/Knee Flexed 42 Abduction 15 Ankle and Foot Goniometric Range of Motion Ankle and Foot Right Active Dorsiflexion with Knee Extended 9 Left Active Dorsiflexion with Knee Extended 5 PT-OP-M Strength Start: 01/15/20 19:59 Freq: Status: Active Protocol: Document 02/22/20 14:14 LRN (Rec: 02/22/20 15:06 LRN [id number]) Hip Strength Hip Manual Muscle Testing Right Abduction 3 Fair Comments Hip strength is 5/5 except as indicated above. Left Flexion (L2) 3- Fair- Abduction 2 Poor External Rotation 2 Poor PT-OP-Q Treatments Start: 01/15/20 19:59 Freq: Status: Active Protocol: Document 02/25/20 14:18 LRN (Rec: 02/25/20 15:03 LRN [id number]) Therapeutic Exercises Supine Exercises Trunk Ext Supine Exercise Name Trunk ext w/contact points of shoulders and hips. Reps/Minutes 10x Leg roll outs Supine Exercise Name BKFO Side bilateral Reps/Minutes 15x 2 Bridge Supine Exercise Name Bridge Side bilateral Reps/Minutes 10x SLR Supine Exercise Name SLR Side right Reps/Minutes 15x 2 Heel slides Supine Exercise Name Heel slides Side right Reps/Minutes 15x 2 Hip AB Supine Exercise Name Hip AB Side right Reps/Minutes 15x 2 Comments Cuing needed to teach pt proper completion of ex. Sitting Exercises Ankle EV Sitting Exercise Name Ankle EV Side right Equipment Used Lev 1 TB Reps/Minutes 20x Comments Xtra time for proper movement, isolating at ankle Ankle DF Sitting Exercise Name Ankle DF Side right Equipment Used Lev 1 TBand Reps/Minutes 15x Comments Xtra time for phy & v. cuing to perform; therefore issued pic handout of ex L ankle IV Sitting Exercise Name Ankle IV Side right Reps/Minutes 20x Comments Xtra time to teach isolation at the ankle for mvmt. Standing Exercises Side stepping Standing Exercise Name Side stepping R & L Side right Reps/Minutes 2 lengths of bars Hip Flex Standing Exercise Name March Side bilateral Reps/Minutes 15x each Hip AB Standing Exercise Name Hip AB Side bilateral Reps/Minutes 15x each Hip Ext Standing Exercise Name Hip Ext Side bilateral Reps/Minutes 15x each Mini squats Standing Exercise Name Mini squats Reps/Minutes 30x Comments Phys cuing needed to keep trunk upright for flex at the hips Gait Training Gait Activity Gait on level Description Gait on level with FWW Distance/Duration 5' Treatment Focus Focus: Proper posturing & even step length Comments Phys cuing needed during training for lumbar ext for proper posturing. V. cuing needed for equal step lengths. Self-Care/Home Management Treatment Education Patient Education Home Exercise Program Activities Self-Care/Home Management Activities Issued & reviewed HEP for supine active trunk ext. PT-OP-R Modalities Start: 01/15/20 19:59 Freq: Status: Active Protocol: Document 02/25/20 14:18 LRN (Rec: 02/25/20 15:03 LRN [id number]) Hot Pack/Cold Pack Treatment Cold Pack Location R hip Patient Position Supine Treatment Duration (minutes) 10 Patient Tolerance Good PT-OP-T Assessment and Plan Start: 01/15/20 19:59 Freq: Status: Active Protocol: Document 02/25/20 14:18 LRN (Rec: 02/25/20 15:03 LRN [id number]) Physical Therapy Assessment Goals Four Impairment Decreased R LE strength and decreased function . Short Term Goal (STG) Indep SLR without difficulty to be able to transfer in/out of bed with ease. STG Duration 02/05/20 Electronic Intelligence Officer Goal (LTG) Increase R LE strength to improve pt mobility function per LEFS score no less than 39 (75% of pre-operative ability ). LTG Duration 05/22/20 Three Impairment Requires use of FWW for gait. Short Term Goal (STG) Amb with normal gait and posture with FWW. STG Duration 02/29/20 [facility] Goal (LTG) Pt will be able to walk without use of assistive device and normal gait pattern around his home and with shopping. LTG Duration 05/22/20 Two Impairment Decreased stability with gait (TUG 17 secs) Short Term Goal (STG) Pt will be able to ambulate on level with use of cane or no assistive device. STG Duration 03/19/20 [facility] Goal (LTG) Improve stability with gait per TUG score of 11 (1<20% impaire) or less. LTG Duration 05/22/20 One Impairment Lacks appropriate post op HEP [facility] Goal (LTG) Pt will be independent in a self care post-operative HEP, including hip strengthening exercises for flex & ext and ankle strengthening and standing balance exercises. LTG Duration 05/22/20 Assessment Summary Assessment Pt able to increase reps of exercise without onset R hip pain. Gait step length normal during training. Pt posturing needs further training and cuing. Pt is weak R ankle and in L ankle IV Physical Therapy Plan Frequency and Duration Frequency of Treatment 2x/Week Plan of Care Start Date 02/22/20 Plan of Care End Date 05/22/20 Next Visit Focus/Plan Next Note Type Treatment Note Next Visit Plan R RIO rehab. Progress R hip strengthening. Teach proper posture with gait and try advancing to cane. Practice gait, and stair ambulation when appropriate.
--- NOTE | 2020-02-29 17:04 | PT.OTN ---
Current Diagnoses Unilateral primary osteoarthritis, right hip (02/29/20) Other abnormalities of gait and mobility (02/29/20) Physical Therapy Treatment Note PT-OP-A Visit Information Start: 01/15/20 19:59 Freq: Status: Active Protocol: Document 02/29/20 14:24 LRN (Rec: 02/29/20 15:05 LRN [id number]) Out-Patient Physical Therapy Visit Information Visit Information Visit Type Treatment Note Visit Start Time 14:24 Visit Stop Time 15:02 Total Visit Minutes 38 Visit Number 7 Evaluation Information Evaluation Date 01/19/20 Precautions Precautions Heart attack 1987, Heart disease, CABG x 2, RPP 2 5 stent, Hernia, Back pain, Controlled blood pressure. PT-OP-B Current Condition Start: 01/15/20 19:59 Freq: Status: Active Protocol: Document 02/22/20 14:14 LRN (Rec: 02/22/20 15:06 LRN [id number]) Current Condition History of Current Condition Onset Date 02/15/20 Current Complaints Not painful with meds. R Leg weak,primary c/o is needs FWW to walk. History of Current Condition R RIO surgery in [place]. Hospitalized 3 days due to cardiac issues associated to medications and was having angina. Cardiac issue resolved but is going to be put on a heart monitor in 2 days. The following day will have PT. He reports no problems since the medications were ironed out. Treatment Goals Patient/Caregiver Goals Pt goal: Walk normally around house and with shopping. 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 Using raised toilet seat with handles for toileting. Personal Factors Other Personal Factors That May Effect Caregiver for spouse Therapy/Recovery Hx of heart disease with heart attack in 1987 and CABG x 2 and 5 stents. PT-OP-C Subjective Start: 01/15/20 19:59 Freq: Status: Active Protocol: Document 02/29/20 14:24 LRN (Rec: 02/29/20 15:05 LRN [id number]) OP-PT Subjective Patient Comments Patient Comments States in bed he has occasional shooting pain in his R heel when supine, if he moves the pain eventually goes away. No complaints of pain with bed ex's. PT-OP-E Functional Tests Start: 01/15/20 19:59 Freq: Status: Active Protocol: Document 02/22/20 14:14 LRN (Rec: 02/22/20 15:06 LRN [id number]) Functional Tests Timed Up and Go (TUG) Score 17 Comments FWW, use of hands TUG Impairment Rating 60 to <80% Impaired (Score 16- 17) PT-OP-G Mobility & Gait Start: 01/15/20 19:59 Freq: Status: Active Protocol: Document 02/22/20 14:14 LRN (Rec: 02/22/20 15:06 LRN [id number]) OP Gait Assessment Gait Gait Assistance Required: Independent Distance (Feet) 150 Able to Maintain Weight Bearing Status Yes During Gait Assistive Devices Assistive Device 4 Wheeled Walker Gait Deviations General Gait Pattern Antalgic,Flexed Trunk,Narrow Based Gait Factors Limiting Gait Function Factors Limiting Gait Function Decreased Activity Tolerance Comments Gait Comments Pt circumducts RLE during swing through phase. Stair Climbing Evaluation Evaluation Level of Assist On Stairs Independent Devices Stair Climbing Assistive Devices Left Railing,Right Railing Technique/Endurance Stair Climbing Direction Ascend and Descend Stair Climbing Technique Step to Step Number of Steps Climbed 4 Stair Climbing Set # Repetitions (reps) 1 PT-OP-J Posture/Palpation/Skin Start: 01/15/20 19:59 Freq: Status: Active Protocol: Document 01/19/20 09:51 LRN (Rec: 01/19/20 18:25 LRN [id number]) Posture Evaluation Position Standing T-Spine Posture Increased Kyphosis L-Spine Posture Flattened,Shifted Left Knee Posture (R) Excess Flexion Ankle/Foot Posture (L) Calcaneal Inversion Comments Posture Comments R leg is short. Posterior Spinous processes ~ T7-T9. PT-OP-K Range of Motion Start: 01/15/20 19:59 Freq: Status: Active Protocol: Document 02/22/20 14:14 LRN (Rec: 02/22/20 15:06 LRN [id number]) Hip Goniometric Range of Motion Hip Right Active Hip ROM WFL No Testing Position Supine Flexion w/Knee Flexed 90 Abduction 22 Left Active Hip ROM WFL Yes Testing Position Supine Flexion w/Knee Flexed 42 Abduction 15 Ankle and Foot Goniometric Range of Motion Ankle and Foot Right Active Dorsiflexion with Knee Extended 9 Left Active Dorsiflexion with Knee Extended 5 PT-OP-M Strength Start: 01/15/20 19:59 Freq: Status: Active Protocol: Document 02/22/20 14:14 LRN (Rec: 02/22/20 15:06 LRN [id number]) Hip Strength Hip Manual Muscle Testing Right Abduction 3 Fair Comments Hip strength is 5/5 except as indicated above. Left Flexion (L2) 3- Fair- Abduction 2 Poor External Rotation 2 Poor PT-OP-Q Treatments Start: 01/15/20 19:59 Freq: Status: Active Protocol: Document 02/29/20 14:24 LRN (Rec: 02/29/20 15:05 LRN [id number]) Therapeutic Exercises Supine Exercises Trunk Ext Supine Exercise Name Trunk ext w/contact points of shoulders and hips. Reps/Minutes 5 hold, 15x Leg roll outs Supine Exercise Name BKFO Side bilateral Reps/Minutes 15x 2 Bridge Supine Exercise Name Bridge Side bilateral Reps/Minutes 15x Comments Lacks 32 deg's to neutral SLR Supine Exercise Name SLR Side right Reps/Minutes 15x 2 Heel slides Supine Exercise Name Heel slides Side right Reps/Minutes 15x 2 Hip AB Supine Exercise Name Hip AB Side right Reps/Minutes 15x 2 Comments Cuing needed to keep pt from lifting leg. Standing Exercises Toe ups/heel ups Standing Exercise Name Toe ups/heel ups Side bilateral Reps/Minutes 15x 2 each Step ups/downs Standing Exercise Name 4 step Side bilateral Reps/Minutes 15x step up left & right Side stepping Standing Exercise Name Side stepping R & L Side right Reps/Minutes 4 lengths of bar Comments Bar length is 15' Hip Flex Standing Exercise Name March Side bilateral Reps/Minutes 15x 2 each Hip AB Standing Exercise Name Hip AB Side bilateral Reps/Minutes 15x 2 each Hip Ext Standing Exercise Name Hip Ext Side bilateral Reps/Minutes 15x 2 each Gait Training Gait Activity Gait on level Description Gait on level with FWW Device Used Cane Distance/Duration 8' Treatment Focus Focus: Proper posturing & even step length Comments Phys cuing needed during training for lumbar ext for proper posturing. V. cuing needed for equal step lengths. Neuro Re-Education Treatment Balance Activities Feet together w/back extension Details Feet together w/Back ext Surface Level Equipment Ballet Bar Reps/Duration 2' Standing feet together Details Static standing w/hands hovering over ballet bar. Surface Level Equipment Ballet bar Reps/Duration 2' Self-Care/Home Management Treatment Education Other Education Educated pt in proper cane height and showed adjustment of walker in clinic. Activities Self-Care/Home Management Activities I/S pt in adding to HEP toe ups/downs and to use cane in home if he feels secure except nighttime and outdoors still walker. PT-OP-R Modalities Start: 01/15/20 19:59 Freq: Status: Active Protocol: Document 02/25/20 14:18 LRN (Rec: 02/25/20 15:03 LRN [id number]) Hot Pack/Cold Pack Treatment Cold Pack Location R hip Patient Position Supine Treatment Duration (minutes) 10 Patient Tolerance Good PT-OP-T Assessment and Plan Start: 01/15/20 19:59 Freq: Status: Active Protocol: Document 02/29/20 14:24 LRN (Rec: 02/29/20 15:05 LRN [id number]) Physical Therapy Assessment Goals Four Impairment Decreased R LE strength and decreased function . Short Term Goal (STG) Indep SLR without difficulty to be able to transfer in/out of bed with ease. STG Duration 02/05/20 (02/29/20: MET GOAL) Operating Manager Goal (LTG) Increase R LE strength to improve pt mobility function per LEFS score no less than 39 (75% of pre-operative ability ). LTG Duration 05/22/20 Three Impairment Requires use of FWW for gait. Short Term Goal (STG) Amb with normal gait and posture with FWW. STG Duration 02/29/20 (02/29/20: MET after training) [facility] Goal (LTG) Pt will be able to walk without use of assistive device and normal gait pattern around his home and with shopping. LTG Duration 05/22/20 Two Impairment Decreased stability with gait (TUG 17 secs) Short Term Goal (STG) Pt will be able to ambulate on level with use of cane or no assistive device. STG Duration 03/19/20 (02/29/20: MET GOAL ) Operating Manager Goal (LTG) Improve stability with gait per TUG score of 11 (1<20% impaire) or less. LTG Duration 05/22/20 One Impairment Lacks appropriate post op HEP Operating Manager Goal (LTG) Pt will be independent in a self care post-operative HEP, including hip strengthening exercises for flex & ext and ankle strengthening and standing balance exercises. LTG Duration 05/22/20 (02/29/20: Progressing with v instructions of HEP) Progress Towards Goals Progress Comments STG #4 MET STG #3 MET. Pt able to perform gait with walker and proper posture after training. STG #2 MET after gait training with SPC. Assessment Summary Assessment Pt able to increase reps with exercise without compaints of discomfort. Pt was fatigued at end of therapy and may need to work to improve endurance. Physical Therapy Plan Frequency and Duration Frequency of Treatment 2x/Week Plan of Care Start Date 02/22/20 Plan of Care End Date 05/22/20 Next Visit Focus/Plan Next Note Type Treatment Note Next Visit Plan R RIO rehab. Issue HEP handouts for toe up/downs and standing hip ex's (if needed). Progress R hip strengthening . Teach proper posture with gait progress safety with gait with cane. Practice stair ambulation when appropriate.
--- NOTE | 2020-03-07 15:19 | PT.OTN ---
Current Diagnoses Unilateral primary osteoarthritis, right hip (03/07/20) Other abnormalities of gait and mobility (03/07/20) Physical Therapy Treatment Note PT-OP-A Visit Information Start: 01/15/20 19:59 Freq: Status: Active Protocol: Document 03/07/20 14:20 LRN (Rec: 03/07/20 15:18 LRN [id number]) Out-Patient Physical Therapy Visit Information Visit Information Visit Type Treatment Note Visit Start Time 14:20 Visit Stop Time 15:06 Total Visit Minutes 46 Visit Number 8 PT-OP-B Current Condition Start: 01/15/20 19:59 Freq: Status: Active Protocol: Document 02/22/20 14:14 LRN (Rec: 02/22/20 15:06 LRN [id number]) Current Condition History of Current Condition Onset Date 02/15/20 Current Complaints Not painful with meds. R Leg weak,primary c/o is needs FWW to walk. History of Current Condition R RIO surgery in [place]. Hospitalized 3 days due to cardiac issues associated to medications and was having angina. Cardiac issue resolved but is going to be put on a heart monitor in 2 days. The following day will have PT. He reports no problems since the medications were ironed out. Treatment Goals Patient/Caregiver Goals Pt goal: Walk normally around house and with shopping. 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 Using raised toilet seat with handles for toileting. Personal Factors Other Personal Factors That May Effect Caregiver for spouse Therapy/Recovery Hx of heart disease with heart attack in 1987 and CABG x 2 and 5 stents. PT-OP-C Subjective Start: 01/15/20 19:59 Freq: Status: Active Protocol: Document 02/29/20 14:24 LRN (Rec: 02/29/20 15:05 LRN [id number]) OP-PT Subjective Patient Comments Patient Comments States in bed he has occasional shooting pain in his R heel when supine, if he moves the pain eventually goes away. No complaints of pain with bed ex's. PT-OP-E Functional Tests Start: 01/15/20 19:59 Freq: Status: Active Protocol: Document 02/22/20 14:14 LRN (Rec: 02/22/20 15:06 LRN [id number]) Functional Tests Timed Up and Go (TUG) Score 17 Comments FWW, use of hands TUG Impairment Rating 60 to <80% Impaired (Score 16- 17) PT-OP-G Mobility & Gait Start: 01/15/20 19:59 Freq: Status: Active Protocol: Document 02/22/20 14:14 LRN (Rec: 02/22/20 15:06 LRN [id number]) OP Gait Assessment Gait Gait Assistance Required: Independent Distance (Feet) 150 Able to Maintain Weight Bearing Status Yes During Gait Assistive Devices Assistive Device 4 Wheeled Walker Gait Deviations General Gait Pattern Antalgic,Flexed Trunk,Narrow Based Gait Factors Limiting Gait Function Factors Limiting Gait Function Decreased Activity Tolerance Comments Gait Comments Pt circumducts RLE during swing through phase. Stair Climbing Evaluation Evaluation Level of Assist On Stairs Independent Devices Stair Climbing Assistive Devices Left Railing,Right Railing Technique/Endurance Stair Climbing Direction Ascend and Descend Stair Climbing Technique Step to Step Number of Steps Climbed 4 Stair Climbing Set # Repetitions (reps) 1 PT-OP-J Posture/Palpation/Skin Start: 01/15/20 19:59 Freq: Status: Active Protocol: Document 01/19/20 09:51 LRN (Rec: 01/19/20 18:25 LRN [id number]) Posture Evaluation Position Standing T-Spine Posture Increased Kyphosis L-Spine Posture Flattened,Shifted Left Knee Posture (R) Excess Flexion Ankle/Foot Posture (L) Calcaneal Inversion Comments Posture Comments R leg is short. Posterior Spinous processes ~ T7-T9. PT-OP-K Range of Motion Start: 01/15/20 19:59 Freq: Status: Active Protocol: Document 02/22/20 14:14 LRN (Rec: 02/22/20 15:06 LRN [id number]) Hip Goniometric Range of Motion Hip Right Active Hip ROM WFL No Testing Position Supine Flexion w/Knee Flexed 90 Abduction 22 Left Active Hip ROM WFL Yes Testing Position Supine Flexion w/Knee Flexed 42 Abduction 15 Ankle and Foot Goniometric Range of Motion Ankle and Foot Right Active Dorsiflexion with Knee Extended 9 Left Active Dorsiflexion with Knee Extended 5 PT-OP-M Strength Start: 01/15/20 19:59 Freq: Status: Active Protocol: Document 02/22/20 14:14 LRN (Rec: 02/22/20 15:06 LRN [id number]) Hip Strength Hip Manual Muscle Testing Right Abduction 3 Fair Comments Hip strength is 5/5 except as indicated above. Left Flexion (L2) 3- Fair- Abduction 2 Poor External Rotation 2 Poor PT-OP-Q Treatments Start: 01/15/20 19:59 Freq: Status: Active Protocol: Document 03/07/20 14:20 LRN (Rec: 03/07/20 15:18 LRN [id number]) Therapeutic Exercises Supine Exercises Trunk Ext Supine Exercise Name Trunk ext w/contact points of shoulders and hips. Reps/Minutes 5 hold, 15x Leg roll outs Supine Exercise Name BKFO Side bilateral Resistance without and with Lev 1 TB Reps/Minutes 10x without, 10x3 with TB Bridge Supine Exercise Name Bridge Side bilateral Reps/Minutes 10x 2 Comments 1 set holding 10 SLR Supine Exercise Name SLR Side right Reps/Minutes 15x 2 Hip AB Supine Exercise Name Hip AB stretch f/b ada, f/b active, f/b ARROM Side right Equipment Used Lev 1 TB Reps/Minutes 10-15x each Comments Cuing for 1' stretch hold. Sitting Exercises Ankle EV Sitting Exercise Name Ankle EV Side right Equipment Used Lev 1 TB Reps/Minutes 30x Comments Xtra time for proper movement, isolating at ankle L ankle IV Sitting Exercise Name Ankle IV Side bilateral Equipment Used None, working on proper movement at ankles Reps/Minutes 30x Comments Xtra time to teach isolation at the ankle for mvmt. Standing Exercises Toe ups/heel ups Standing Exercise Name Toe ups/heel ups Side bilateral Reps/Minutes 10x 4 each Side stepping Standing Exercise Name Side stepping R & L Side right Equipment Used //Bars, Lev 1 TB Reps/Minutes 4 lengths of // bar Comments Bar length is 8' Hip Flex Standing Exercise Name March Side bilateral Equipment Used //Bars, Lev 1 TB Reps/Minutes 15x 2 each Hip AB Standing Exercise Name Hip AB Side right Equipment Used //Bars, Lev 1 TB Reps/Minutes 5' Hip Ext Standing Exercise Name Hip Ext Side bilateral Equipment Used //Bars, Lev 1 TB Reps/Minutes 15x 2 each Gait Training Gait Activity Gait on level Description Gait on level without assistive device Distance/Duration 5' Treatment Focus Focus on weight shifting and posture. Self-Care/Home Management Treatment Education Patient Education Home Exercise Program Activities Self-Care/Home Management Activities Pt I/S in self care TrP treateent to R hip AD's promixmally and at pubic bone. Issued & reviewed HEP: Supine Clamshell w/TB, standing toe ups/heel ups. PT-OP-R Modalities Start: 01/15/20 19:59 Freq: Status: Active Protocol: Document 02/25/20 14:18 LRN (Rec: 02/25/20 15:03 LRN [id number]) Hot Pack/Cold Pack Treatment Cold Pack Location R hip Patient Position Supine Treatment Duration (minutes) 10 Patient Tolerance Good PT-OP-T Assessment and Plan Start: 01/15/20 19:59 Freq: Status: Active Protocol: Document 03/07/20 14:20 LRN (Rec: 03/07/20 15:18 LRN [id number]) Physical Therapy Assessment Goals Four Impairment Decreased R LE strength and decreased function . Short Term Goal (STG) Indep SLR without difficulty to be able to transfer in/out of bed with ease. STG Duration 02/05/20 (02/29/20: MET GOAL) Offender Job Retention Specialist Goal (LTG) Increase R LE strength to improve pt mobility function per LEFS score no less than 39 (75% of pre-operative ability ). LTG Duration 05/22/20 Three Impairment Requires use of FWW for gait. Short Term Goal (STG) Amb with normal gait and posture with FWW. STG Duration 02/29/20 (02/29/20: MET after training) Offender Job Retention Specialist Goal (LTG) Pt will be able to walk without use of assistive device and normal gait pattern around his home and with shopping. LTG Duration 05/22/20 Two Impairment Decreased stability with gait (TUG 17 secs) Short Term Goal (STG) Pt will be able to ambulate on level with use of cane or no assistive device. STG Duration 03/19/20 (02/29/20: MET GOAL ) Offender Job Retention Specialist Goal (LTG) Improve stability with gait per TUG score of 11 (1<20% impaire) or less. LTG Duration 05/22/20 One Impairment Lacks appropriate post op HEP Offender Job Retention Specialist Goal (LTG) Pt will be independent in a self care post-operative HEP, including hip strengthening exercises for flex & ext and ankle strengthening and standing balance exercises. LTG Duration 05/22/20 (02/29/20: Progressing with v instructions of HEP) Assessment Summary Assessment Pt has high pain tolerance. He is tight in hip AD's limiting his hip AB ROM. With gait he has decreased hip sway/rotation bilaterally. He has very weak ankle IV bilaterally. Physical Therapy Plan Frequency and Duration Frequency of Treatment 2x/Week Plan of Care Start Date 02/22/20 Plan of Care End Date 05/22/20 Next Visit Focus/Plan Next Note Type Treatment Note Next Visit Plan R RIO rehab. Review for self TrP treatment and issued HEP. Start gait training with proper posture without assistive device. Practice stair ambulation.
--- NOTE | 2020-03-10 15:22 | PT.OTN ---
Current Diagnoses Unilateral primary osteoarthritis, right hip (03/10/20) Other abnormalities of gait and mobility (03/10/20) Physical Therapy Treatment Note PT-OP-A Visit Information Start: 01/15/20 19:59 Freq: Status: Active Protocol: Document 03/10/20 14:30 LRN (Rec: 03/10/20 15:19 LRN [id number]) Out-Patient Physical Therapy Visit Information Visit Information Visit Start Time 14:32 Visit Stop Time 15:11 Total Visit Minutes 39 Visit Number 9 Evaluation Information Evaluation Date 01/19/20 Precautions Precautions Heart attack 1987, Heart disease, CABG x 2, RPP 2 5 stent, Hernia, Back pain, Controlled blood pressure. PT-OP-B Current Condition Start: 01/15/20 19:59 Freq: Status: Active Protocol: Document 02/22/20 14:14 LRN (Rec: 02/22/20 15:06 LRN [id number]) Current Condition History of Current Condition Onset Date 02/15/20 Current Complaints Not painful with meds. R Leg weak,primary c/o is needs FWW to walk. History of Current Condition R RIO surgery in [place]. Hospitalized 3 days due to cardiac issues associated to medications and was having angina. Cardiac issue resolved but is going to be put on a heart monitor in 2 days. The following day will have PT. He reports no problems since the medications were ironed out. Treatment Goals Patient/Caregiver Goals Pt goal: Walk normally around house and with shopping. 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 Using raised toilet seat with handles for toileting. Personal Factors Other Personal Factors That May Effect Caregiver for spouse Therapy/Recovery Hx of heart disease with heart attack in 1987 and CABG x 2 and 5 stents. PT-OP-C Subjective Start: 01/15/20 19:59 Freq: Status: Active Protocol: Document 03/10/20 14:30 LRN (Rec: 03/10/20 15:19 LRN [id number]) OP-PT Subjective Patient Comments Patient Comments Pt doing good. Pt comes in to therapy using SPC. PT-OP-E Functional Tests Start: 01/15/20 19:59 Freq: Status: Active Protocol: Document 02/22/20 14:14 LRN (Rec: 02/22/20 15:06 LRN [id number]) Functional Tests Timed Up and Go (TUG) Score 17 Comments FWW, use of hands TUG Impairment Rating 60 to <80% Impaired (Score 16- 17) PT-OP-G Mobility & Gait Start: 01/15/20 19:59 Freq: Status: Active Protocol: Document 02/22/20 14:14 LRN (Rec: 02/22/20 15:06 LRN [id number]) OP Gait Assessment Gait Gait Assistance Required: Independent Distance (Feet) 150 Able to Maintain Weight Bearing Status Yes During Gait Assistive Devices Assistive Device 4 Wheeled Walker Gait Deviations General Gait Pattern Antalgic,Flexed Trunk,Narrow Based Gait Factors Limiting Gait Function Factors Limiting Gait Function Decreased Activity Tolerance Comments Gait Comments Pt circumducts RLE during swing through phase. Stair Climbing Evaluation Evaluation Level of Assist On Stairs Independent Devices Stair Climbing Assistive Devices Left Railing,Right Railing Technique/Endurance Stair Climbing Direction Ascend and Descend Stair Climbing Technique Step to Step Number of Steps Climbed 4 Stair Climbing Set # Repetitions (reps) 1 PT-OP-J Posture/Palpation/Skin Start: 01/15/20 19:59 Freq: Status: Active Protocol: Document 01/19/20 09:51 LRN (Rec: 01/19/20 18:25 LRN [id number]) Posture Evaluation Position Standing T-Spine Posture Increased Kyphosis L-Spine Posture Flattened,Shifted Left Knee Posture (R) Excess Flexion Ankle/Foot Posture (L) Calcaneal Inversion Comments Posture Comments R leg is short. Posterior Spinous processes ~ T7-T9. PT-OP-K Range of Motion Start: 01/15/20 19:59 Freq: Status: Active Protocol: Document 02/22/20 14:14 LRN (Rec: 02/22/20 15:06 LRN [id number]) Hip Goniometric Range of Motion Hip Right Active Hip ROM WFL No Testing Position Supine Flexion w/Knee Flexed 90 Abduction 22 Left Active Hip ROM WFL Yes Testing Position Supine Flexion w/Knee Flexed 42 Abduction 15 Ankle and Foot Goniometric Range of Motion Ankle and Foot Right Active Dorsiflexion with Knee Extended 9 Left Active Dorsiflexion with Knee Extended 5 PT-OP-M Strength Start: 01/15/20 19:59 Freq: Status: Active Protocol: Document 02/22/20 14:14 LRN (Rec: 02/22/20 15:06 LRN [id number]) Hip Strength Hip Manual Muscle Testing Right Abduction 3 Fair Comments Hip strength is 5/5 except as indicated above. Left Flexion (L2) 3- Fair- Abduction 2 Poor External Rotation 2 Poor PT-OP-Q Treatments Start: 01/15/20 19:59 Freq: Status: Active Protocol: Document 03/10/20 14:30 LRN (Rec: 03/10/20 15:19 LRN [id number]) Therapeutic Exercises Sitting Exercises Hip AB Sitting Exercise Name Hip AB Side bilateral Equipment Used Lev 1 TB Reps/Minutes 10x 3 Trunk Ext Sitting Exercise Name Active Trunk Ext Reps/Minutes 5 Hold x 15 Standing Exercises Toe ups/heel ups Standing Exercise Name Rocker Board Toe ups/heel ups Side bilateral Equipment Used UE support Reps/Minutes 10x 4 each Step ups/downs Standing Exercise Name 6 step Side bilateral Reps/Minutes 15x step up left & right Side stepping Standing Exercise Name Side stepping R & L Side right Equipment Used //Bars, Lev 1 TB Reps/Minutes 4 lengths of // bar Comments Bar length 15' Hip Flex Standing Exercise Name March Side bilateral Equipment Used //Bars, Lev 1 TB Reps/Minutes 15x 2 each Gait Training Gait Activity Gait on level Description Gait on level without assistive device Device Used SPC and no AD Distance/Duration 17' Treatment Focus Focus on weight shifting and proper posture with cane use. Comments Cane is too short for pt; therefore pt needs to use it for light balance and not WBing to normalize gait. Pt is able to ambulate without an AD without difficulty. Stair ambulation Description Stair training with Device Used Railing on either side & SPC Distance/Duration 5' of 4 & 6 steps x 4 Treatment Focus Teaching proper use of cane and gait pattern. Comments Pt has poor coordination with use of SPC on stairs. He demonstrates weakness of the RLE when stepping up with R. Descending stairs with railing is without difficulty. PT-OP-R Modalities Start: 01/15/20 19:59 Freq: Status: Active Protocol: Document 02/25/20 14:18 LRN (Rec: 02/25/20 15:03 LRN [id number]) Hot Pack/Cold Pack Treatment Cold Pack Location R hip Patient Position Supine Treatment Duration (minutes) 10 Patient Tolerance Good PT-OP-T Assessment and Plan Start: 01/15/20 19:59 Freq: Status: Active Protocol: Document 03/10/20 14:30 LRN (Rec: 03/10/20 15:19 LRN [id number]) Physical Therapy Assessment Goals Four Impairment Decreased R LE strength and decreased function . Short Term Goal (STG) Indep SLR without difficulty to be able to transfer in/out of bed with ease. STG Duration 02/05/20 (02/29/20: MET GOAL) Ceramic Coater Machine Goal (LTG) Increase R LE strength to improve pt mobility function per LEFS score no less than 39 (75% of pre-operative ability ). LTG Duration 05/22/20 Three Impairment Requires use of FWW for gait. Short Term Goal (STG) Amb with normal gait and posture with FWW. STG Duration 02/29/20 (02/29/20: MET after training) Intermediate Goal (LTG) Pt will be able to walk without use of assistive device (AD) and normal gait pattern around his home and with shopping. (03/10/20: Pt able to walk without an AD, gait is stiff and trunk held in R rot) LTG Duration 05/22/20 (03/10/20: Partially met) Two Impairment Decreased stability with gait (TUG 17 secs) Short Term Goal (STG) Pt will be able to ambulate on level with use of cane or no assistive device. STG Duration 03/19/20 (02/29/20: MET GOAL ) Ceramic Coater Machine Goal (LTG) Improve stability with gait per TUG score of 11 (1<20% impaire) or less. LTG Duration 05/22/20 One Impairment Lacks appropriate post op HEP Intermediate Goal (LTG) Pt will be independent in a self care post-operative HEP, including hip strengthening exercises for flex & ext and ankle strengthening and standing balance exercises. LTG Duration 05/22/20 (02/29/20: Progressing with v instructions of HEP) Progress Towards Goals Progress Comments Pt now able to walk without an AD and can ambulate stairs with reciprical gait pattern with use of 1 rail. Assessment Summary Assessment Pt function improving. He demonstrates decreased endurance and required 2 sit rests after stair amb & gait training. Pt is sitff in trunk with gait and holds his trunk R rotated, but improved fluidity with movement (trunk rot present) and positioning of trunk (forward vs R rotated ) durng gait after therapy training. Physical Therapy Plan Frequency and Duration Frequency of Treatment 2x/Week Plan of Care Start Date 02/22/20 Plan of Care End Date 05/22/20 Next Visit Focus/Plan Next Note Type Progress Note Next Visit Plan R RIO rehab. Review for self TrP treatment and issue HEP. Cont gait training with proper posture without assistive device. Cont practice stair ambulation.
--- NOTE | 2020-03-14 11:42 | PT.OTN ---
Current Diagnoses Unilateral primary osteoarthritis, right hip (03/14/20) Other abnormalities of gait and mobility (03/14/20) Physical Therapy Treatment Note PT-OP-A Visit Information Start: 01/15/20 19:59 Freq: Status: Active Protocol: Document 03/14/20 10:36 LRN (Rec: 03/14/20 11:23 LRN [id number]) Out-Patient Physical Therapy Visit Information Visit Information Visit Type Progress Note Visit Start Time 10:36 Visit Stop Time 11:16 Total Visit Minutes 40 Visit Number 10 Evaluation Information Evaluation Date 01/19/20 Precautions Precautions Heart attack 1987, Heart disease, CABG x 2, RPP 2 5 stent, Hernia, Back pain, Controlled blood pressure. PT-OP-B Current Condition Start: 01/15/20 19:59 Freq: Status: Active Protocol: Document 02/22/20 14:14 LRN (Rec: 02/22/20 15:06 LRN [id number]) Current Condition History of Current Condition Onset Date 02/15/20 Current Complaints Not painful with meds. R Leg weak,primary c/o is needs FWW to walk. History of Current Condition R RIO surgery in [place]. Hospitalized 3 days due to cardiac issues associated to medications and was having angina. Cardiac issue resolved but is going to be put on a heart monitor in 2 days. The following day will have PT. He reports no problems since the medications were ironed out. Treatment Goals Patient/Caregiver Goals Pt goal: Walk normally around house and with shopping. 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 Using raised toilet seat with handles for toileting. Personal Factors Other Personal Factors That May Effect Caregiver for spouse Therapy/Recovery Hx of heart disease with heart attack in 1987 and CABG x 2 and 5 stents. PT-OP-C Subjective Start: 01/15/20 19:59 Freq: Status: Active Protocol: Document 03/14/20 10:36 LRN (Rec: 03/14/20 11:23 LRN [id number]) OP-PT Subjective Patient Comments Patient Comments Pt ambs into therapy without an AD. Back is uncomfortable at night when lying on it too long. Also the back is uncomfortable when standing too long. Feels normal walking and with stair amb, but has stiffness at the hip after sitting for a short period and doesn't take much to get of stiffness. Patient Questionnaires Lower Extremity Functional Scale LEFS Score 49 LEFS Impairment 20 to 39% Impaired (Score 48- 62) OP-PT Pain Assessment Location R hip Pain Location Details R lateral/posterior hip and low back Intensity 1 Scale Used Numeric (0 - 10) Description Tightness Description- Other Stiffness Pain Duration Short Pain Aggravating Factors Changing Position PT-OP-E Functional Tests Start: 01/15/20 19:59 Freq: Status: Active Protocol: Document 03/14/20 10:36 LRN (Rec: 03/14/20 11:23 LRN [id number]) Functional Tests Timed Up and Go (TUG) Score 12.61 Comments RIO precautions followed, use of hands TUG Impairment Rating 20 to <40% Impaired (Score 12- 13) PT-OP-G Mobility & Gait Start: 01/15/20 19:59 Freq: Status: Active Protocol: Document 02/22/20 14:14 LRN (Rec: 02/22/20 15:06 LRN [id number]) OP Gait Assessment Gait Gait Assistance Required: Independent Distance (Feet) 150 Able to Maintain Weight Bearing Status Yes During Gait Assistive Devices Assistive Device 4 Wheeled Walker Gait Deviations General Gait Pattern Antalgic,Flexed Trunk,Narrow Based Gait Factors Limiting Gait Function Factors Limiting Gait Function Decreased Activity Tolerance Comments Gait Comments Pt circumducts RLE during swing through phase. Stair Climbing Evaluation Evaluation Level of Assist On Stairs Independent Devices Stair Climbing Assistive Devices Left Railing,Right Railing Technique/Endurance Stair Climbing Direction Ascend and Descend Stair Climbing Technique Step to Step Number of Steps Climbed 4 Stair Climbing Set # Repetitions (reps) 1 PT-OP-J Posture/Palpation/Skin Start: 01/15/20 19:59 Freq: Status: Active Protocol: Document 01/19/20 09:51 LRN (Rec: 01/19/20 18:25 LRN [id number]) Posture Evaluation Position Standing T-Spine Posture Increased Kyphosis L-Spine Posture Flattened,Shifted Left Knee Posture (R) Excess Flexion Ankle/Foot Posture (L) Calcaneal Inversion Comments Posture Comments R leg is short. Posterior Spinous processes ~ T7-T9. PT-OP-K Range of Motion Start: 01/15/20 19:59 Freq: Status: Active Protocol: Document 02/22/20 14:14 LRN (Rec: 02/22/20 15:06 LRN [id number]) Hip Goniometric Range of Motion Hip Right Active Hip ROM WFL No Testing Position Supine Flexion w/Knee Flexed 90 Abduction 22 Left Active Hip ROM WFL Yes Testing Position Supine Flexion w/Knee Flexed 42 Abduction 15 Ankle and Foot Goniometric Range of Motion Ankle and Foot Right Active Dorsiflexion with Knee Extended 9 Left Active Dorsiflexion with Knee Extended 5 PT-OP-M Strength Start: 01/15/20 19:59 Freq: Status: Active Protocol: Document 02/22/20 14:14 LRN (Rec: 02/22/20 15:06 LRN [id number]) Hip Strength Hip Manual Muscle Testing Right Abduction 3 Fair Comments Hip strength is 5/5 except as indicated above. Left Flexion (L2) 3- Fair- Abduction 2 Poor External Rotation 2 Poor PT-OP-Q Treatments Start: 01/15/20 19:59 Freq: Status: Active Protocol: Document 03/14/20 10:36 LRN (Rec: 03/14/20 11:23 LRN [id number]) Therapeutic Exercises Supine Exercises Bridge Supine Exercise Name Bridge Reps/Minutes 30x SLR Supine Exercise Name SLR Side right Reps/Minutes 30x Sitting Exercises Trunk Ext Sitting Exercise Name Active Trunk Ext Reps/Minutes 5 Hold x 15 Standing Exercises Knee Flex Standing Exercise Name Knee flex for SLS balance training Side bilateral Reps/Minutes 10x each Toe ups/heel ups Standing Exercise Name Toe ups/heel ups with hands hovering Side bilateral Reps/Minutes 15x 2 Side stepping Standing Exercise Name Side stepping R & L Side right Equipment Used Bars, Lev 1 TB Reps/Minutes 4 lengths of // bar Comments Bar length 15' Hip Flex Standing Exercise Name March Side bilateral Reps/Minutes 15x 2 each Hip AB Standing Exercise Name Hip AB (SLS R for balance, SLS L for R hip strengthening) Side bilateral Equipment Used Lev 1 TB Reps/Minutes 5' Hip Ext Standing Exercise Name Hip Ext Side bilateral Equipment Used //Bars, Lev 1 TB Reps/Minutes 15x 2 each Self-Care/Home Management Treatment Education Patient Education Home Exercise Program Activities Self-Care/Home Management Activities Issued & reviewed HEP for standing balance ex's: SLS: knee flex, hip AB/ext & heel ups, verbal instructions for toe ups. PT-OP-R Modalities Start: 01/15/20 19:59 Freq: Status: Active Protocol: Document 02/25/20 14:18 LRN (Rec: 02/25/20 15:03 LRN [id number]) Hot Pack/Cold Pack Treatment Cold Pack Location R hip Patient Position Supine Treatment Duration (minutes) 10 Patient Tolerance Good PT-OP-T Assessment and Plan Start: 01/15/20 19:59 Freq: Status: Active Protocol: Document 03/14/20 10:36 LRN (Rec: 03/14/20 11:23 LRN [id number]) Physical Therapy Assessment Rehab Potential Rehabilitation Potential Excellent Evaluation Complexity Number of Personal Factors/Comorbidities 1-2 Number of Body Systems Impaired 3 Clinical Presentation at Evaluation Evolving Impairments Impairments Balance,Gait,Posture Goals Four Impairment Decreased R LE strength and decreased function . Short Term Goal (STG) Indep SLR without difficulty to be able to transfer in/out of bed with ease. STG Duration 02/05/20 (02/29/20: MET GOAL) Newspaper Distributor Supervisor Goal (LTG) Increase R LE strength to improve pt mobility function per LEFS score no less than 39 (75% of pre-operative ability ). (03/14/20: LEFS is 49 indicating 20<40% impaired). LTG Duration 05/22/20 (03/14/20: MET GOAL) Three Impairment Requires use of FWW for gait. Short Term Goal (STG) Amb with normal gait and posture with FWW. STG Duration 02/29/20 (02/29/20: MET GOAL after training) Retirement Goal (LTG) Pt will be able to walk without use of assistive device (AD) and normal gait pattern around his home and with shopping. (03/14/20: Ambs w/o AD, gait is stiff and trunk held in R rot) LTG Duration 05/22/20 (03/10/20: Partially Met Goal) Two Impairment Decreased stability with gait (TUG 17 secs) Short Term Goal (STG) Pt will be able to ambulate on level with use of cane or no assistive device. STG Duration 03/19/20 (02/29/20: MET GOAL ) Retirement Goal (LTG) Improve stability with gait per TUG score of 11 (1<20% impaire) or less. (03/14/20: TUG score is 12.61 secs) LTG Duration 05/22/20 (03/14/20: Progressing) One Impairment Lacks appropriate post op HEP Newspaper Distributor Supervisor Goal (LTG) Pt will be independent in a self care post-operative HEP, including hip strengthening exercises for flex & ext and ankle strengthening and standing balance exercises. LTG Duration 05/22/20 (03/14/20: MET GOAL) Progress Towards Goals Progress Towards Goals Progressing Toward Goals Progress Comments Pt comes into clinic walking without assistive device. MET GOAL #4 LTG for improved LEFS #4 MET: LEFS currently at score 49, indicating 20<40% impaired. Goal #3: STG; MET GOAL. LTG : Progressing GOAL #2: STG: MET GOAL. LTG : Progressing: TUG Score is 12.61 secs, 20<40% impaired ( was 17 secs, 60<80% impaired). GOAL #1: MET GOAL. Assessment Summary Assessment Pt stability of gait is improved per TUG score (see above) and function per LEFS. Pt is ready to progress his balance for stability of gait and is expected to progress his gait more quickly once his R RIO precautions are lifted. Physical Therapy Plan Frequency and Duration Frequency of Treatment 2x/Week Plan of Care Start Date 02/22/20 Plan of Care End Date 05/22/20 Therapeutic Interventions Therapeutic Interventions Balance Training,Gait Training ,Home Exercise Program, Neuromuscular Re-education, Patient/Caregiver Education, Self-Care/Home Management,Soft Tissue Mobilization, Therapeutic Activities, Therapeutic Exercises Modalities Cold Pack/Ice Massage Next Visit Focus/Plan Next Note Type Treatment Note Next Visit Plan R RIO rehab. Focus on improving balance and to normalize gait. Review for self TrP treatment and issue HEP. Cont gait and balance training with proper posture without assistive device. Practice stair ambulation.
--- NOTE | 2020-03-17 15:07 | PT.OTN ---
Current Diagnoses Unilateral primary osteoarthritis, right hip (03/17/20) Other abnormalities of gait and mobility (03/17/20) Physical Therapy Treatment Note PT-OP-A Visit Information Start: 01/15/20 19:59 Freq: Status: Active Protocol: Document 03/17/20 14:24 LRN (Rec: 03/17/20 15:07 LRN [id number]) Out-Patient Physical Therapy Visit Information Visit Information Visit Type Treatment Note Visit Start Time 14:24 Visit Stop Time 15:02 Total Visit Minutes 38 Visit Number 11 Evaluation Information Evaluation Date 01/19/20 Precautions Precautions Heart attack 1987, Heart disease, CABG x 2, RPP 2 5 stent, Hernia, Back pain, Controlled blood pressure. PT-OP-B Current Condition Start: 01/15/20 19:59 Freq: Status: Active Protocol: Document 02/22/20 14:14 LRN (Rec: 02/22/20 15:06 LRN [id number]) Current Condition History of Current Condition Onset Date 02/15/20 Current Complaints Not painful with meds. R Leg weak,primary c/o is needs FWW to walk. History of Current Condition R RIO surgery in [place]. Hospitalized 3 days due to cardiac issues associated to medications and was having angina. Cardiac issue resolved but is going to be put on a heart monitor in 2 days. The following day will have PT. He reports no problems since the medications were ironed out. Treatment Goals Patient/Caregiver Goals Pt goal: Walk normally around house and with shopping. 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 Using raised toilet seat with handles for toileting. Personal Factors Other Personal Factors That May Effect Caregiver for spouse Therapy/Recovery Hx of heart disease with heart attack in 1987 and CABG x 2 and 5 stents. PT-OP-C Subjective Start: 01/15/20 19:59 Freq: Status: Active Protocol: Document 03/17/20 14:24 LRN (Rec: 03/17/20 15:07 LRN [id number]) OP-PT Subjective Patient Comments Patient Comments No problems with new ex's last session. PT-OP-E Functional Tests Start: 01/15/20 19:59 Freq: Status: Active Protocol: Document 03/14/20 10:36 LRN (Rec: 03/14/20 11:23 LRN [id number]) Functional Tests Timed Up and Go (TUG) Score 12.61 Comments RIO precautions followed, use of hands TUG Impairment Rating 20 to <40% Impaired (Score 12- 13) PT-OP-G Mobility & Gait Start: 01/15/20 19:59 Freq: Status: Active Protocol: Document 02/22/20 14:14 LRN (Rec: 02/22/20 15:06 LRN [id number]) OP Gait Assessment Gait Gait Assistance Required: Independent Distance (Feet) 150 Able to Maintain Weight Bearing Status Yes During Gait Assistive Devices Assistive Device 4 Wheeled Walker Gait Deviations General Gait Pattern Antalgic,Flexed Trunk,Narrow Based Gait Factors Limiting Gait Function Factors Limiting Gait Function Decreased Activity Tolerance Comments Gait Comments Pt circumducts RLE during swing through phase. Stair Climbing Evaluation Evaluation Level of Assist On Stairs Independent Devices Stair Climbing Assistive Devices Left Railing,Right Railing Technique/Endurance Stair Climbing Direction Ascend and Descend Stair Climbing Technique Step to Step Number of Steps Climbed 4 Stair Climbing Set # Repetitions (reps) 1 PT-OP-J Posture/Palpation/Skin Start: 01/15/20 19:59 Freq: Status: Active Protocol: Document 01/19/20 09:51 LRN (Rec: 01/19/20 18:25 LRN [id number]) Posture Evaluation Position Standing T-Spine Posture Increased Kyphosis L-Spine Posture Flattened,Shifted Left Knee Posture (R) Excess Flexion Ankle/Foot Posture (L) Calcaneal Inversion Comments Posture Comments R leg is short. Posterior Spinous processes ~ T7-T9. PT-OP-K Range of Motion Start: 01/15/20 19:59 Freq: Status: Active Protocol: Document 02/22/20 14:14 LRN (Rec: 02/22/20 15:06 LRN [id number]) Hip Goniometric Range of Motion Hip Right Active Hip ROM WFL No Testing Position Supine Flexion w/Knee Flexed 90 Abduction 22 Left Active Hip ROM WFL Yes Testing Position Supine Flexion w/Knee Flexed 42 Abduction 15 Ankle and Foot Goniometric Range of Motion Ankle and Foot Right Active Dorsiflexion with Knee Extended 9 Left Active Dorsiflexion with Knee Extended 5 PT-OP-M Strength Start: 01/15/20 19:59 Freq: Status: Active Protocol: Document 02/22/20 14:14 LRN (Rec: 02/22/20 15:06 LRN [id number]) Hip Strength Hip Manual Muscle Testing Right Abduction 3 Fair Comments Hip strength is 5/5 except as indicated above. Left Flexion (L2) 3- Fair- Abduction 2 Poor External Rotation 2 Poor PT-OP-Q Treatments Start: 01/15/20 19:59 Freq: Status: Active Protocol: Document 03/17/20 14:24 LRN (Rec: 03/17/20 15:07 LRN [id number]) Therapeutic Exercises Standing Exercises Knee Flex Standing Exercise Name Knee flex for SLS balance training Side bilateral Reps/Minutes 15x each Toe ups/heel ups Standing Exercise Name Toe ups/heel ups with hands hovering Side bilateral Equipment Used // bars, Blue Foam Reps/Minutes 15x 2 Step ups/downs Standing Exercise Name 6 step Side bilateral Reps/Minutes 15x step up left & right Comments Phys cuing needed for step patterns and cuing for control on descent Hip Flex Standing Exercise Name March Side bilateral Equipment Used // bars, Blue Foam Reps/Minutes 15x 2 each Hip AB Standing Exercise Name Hip AB (SLS R for balance, SLS L for R hip strengthening) Side bilateral Equipment Used // bars, Blue Foam Reps/Minutes 5' Gait Training Gait Activity Gait with normal arm swing Description Gait trainng Device Used 2 canes Treatment Focus Gait with normal arm swing Comments Pt needed constant physical assist and some verbal cuing for R hip anterior protraction . Gait with Pelvic rot left and trunk rot R Description Gait training Distance/Duration 10' Treatment Focus Pelvic rot left/trunk rot R Comments Pt needed constant physical cuing and some verbal cuing. PT-OP-R Modalities Start: 01/15/20 19:59 Freq: Status: Active Protocol: Document 02/25/20 14:18 LRN (Rec: 02/25/20 15:03 LRN [id number]) Hot Pack/Cold Pack Treatment Cold Pack Location R hip Patient Position Supine Treatment Duration (minutes) 10 Patient Tolerance Good PT-OP-T Assessment and Plan Start: 01/15/20 19:59 Freq: Status: Active Protocol: Document 03/17/20 14:24 LRN (Rec: 03/17/20 15:07 LRN [id number]) Physical Therapy Assessment Goals Four Impairment Decreased R LE strength and decreased function . Short Term Goal (STG) Indep SLR without difficulty to be able to transfer in/out of bed with ease. STG Duration 02/05/20 (02/29/20: MET GOAL) Medical Doctor Nuclear Medicine Goal (LTG) Increase R LE strength to improve pt mobility function per LEFS score no less than 39 (75% of pre-operative ability ). (03/14/20: LEFS is 49 indicating 20<40% impaired). LTG Duration 05/22/20 (03/14/20: MET GOAL) Three Impairment Requires use of FWW for gait. Short Term Goal (STG) Amb with normal gait and posture with FWW. STG Duration 02/29/20 (02/29/20: MET GOAL after training) Assisted Goal (LTG) Pt will be able to walk without use of assistive device (AD) and normal gait pattern around his home and with shopping. (03/14/20: Ambs w/o AD, gait is stiff and trunk held in R rot) LTG Duration 05/22/20 (03/17/20: Improving ) Two Impairment Decreased stability with gait (TUG 17 secs) Short Term Goal (STG) Pt will be able to ambulate on level with use of cane or no assistive device. STG Duration 03/19/20 (02/29/20: MET GOAL ) Assisted Goal (LTG) Improve stability with gait per TUG score of 11 (1<20% impaire) or less. (03/14/20: TUG score is 12.61 secs) LTG Duration 05/22/20 (03/14/20: Progressing) One Impairment Lacks appropriate post op HEP Assisted Goal (LTG) Pt will be independent in a self care post-operative HEP, including hip strengthening exercises for flex & ext and ankle strengthening and standing balance exercises. LTG Duration 05/22/20 (03/14/20: MET GOAL) Progress Towards Goals Progress Comments Much improved gait mechanics. Assessment Summary Assessment Pt gait mechanics much improved after training with improved trunk rot and mildly better arm swings. His pelvic rotation was visible with a more natural gait. Balance is poor with knee flex & hip AB while on Blue foam. Pt shows weakness in R Quad with ascending, pt somewhat jumping up to ascend on the right. Physical Therapy Plan Frequency and Duration Frequency of Treatment 2x/Week Plan of Care Start Date 02/22/20 Plan of Care End Date 05/22/20 Next Visit Focus/Plan Next Note Type Treatment Note Next Visit Plan R RIO rehab. Focus on normalizing gait and improving balance. Review for self TrP treatment and issue HEP. Cont gait and balance training with proper posture without assistive device. Practice stair ambulation.
--- NOTE | 2020-03-21 16:38 | PT.OTN ---
Current Diagnoses Unilateral primary osteoarthritis, right hip (03/21/20) Other abnormalities of gait and mobility (03/21/20) Physical Therapy Treatment Note PT-OP-A Visit Information Start: 01/15/20 19:59 Freq: Status: Active Protocol: Document 03/21/20 14:23 LRN (Rec: 03/21/20 15:11 LRN [id number]) Out-Patient Physical Therapy Visit Information Visit Information Visit Type Treatment Note Visit Start Time 14:23 Visit Stop Time 15:06 Total Visit Minutes 43 Visit Number 12 Evaluation Information Evaluation Date 01/19/20 Precautions Precautions Heart attack 1987, Heart disease, CABG x 2, RPP 2 5 stent, Hernia, Back pain, Controlled blood pressure. PT-OP-B Current Condition Start: 01/15/20 19:59 Freq: Status: Active Protocol: Document 02/22/20 14:14 LRN (Rec: 02/22/20 15:06 LRN [id number]) Current Condition History of Current Condition Onset Date 02/15/20 Current Complaints Not painful with meds. R Leg weak,primary c/o is needs FWW to walk. History of Current Condition R RIO surgery in [place]. Hospitalized 3 days due to cardiac issues associated to medications and was having angina. Cardiac issue resolved but is going to be put on a heart monitor in 2 days. The following day will have PT. He reports no problems since the medications were ironed out. Treatment Goals Patient/Caregiver Goals Pt goal: Walk normally around house and with shopping. 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 Using raised toilet seat with handles for toileting. Personal Factors Other Personal Factors That May Effect Caregiver for spouse Therapy/Recovery Hx of heart disease with heart attack in 1987 and CABG x 2 and 5 stents. PT-OP-C Subjective Start: 01/15/20 19:59 Freq: Status: Active Protocol: Document 03/21/20 14:23 LRN (Rec: 03/21/20 15:11 LRN [id number]) OP-PT Subjective Patient Comments Patient Comments No pain complaints. PT-OP-E Functional Tests Start: 01/15/20 19:59 Freq: Status: Active Protocol: Document 03/21/20 14:23 LRN (Rec: 03/21/20 15:11 LRN [id number]) Functional Tests Timed Up and Go (TUG) Score 11 TUG Impairment Rating 1 to <20% Impaired (Score 11) PT-OP-G Mobility & Gait Start: 01/15/20 19:59 Freq: Status: Active Protocol: Document 02/22/20 14:14 LRN (Rec: 02/22/20 15:06 LRN [id number]) OP Gait Assessment Gait Gait Assistance Required: Independent Distance (Feet) 150 Able to Maintain Weight Bearing Status Yes During Gait Assistive Devices Assistive Device 4 Wheeled Walker Gait Deviations General Gait Pattern Antalgic,Flexed Trunk,Narrow Based Gait Factors Limiting Gait Function Factors Limiting Gait Function Decreased Activity Tolerance Comments Gait Comments Pt circumducts RLE during swing through phase. Stair Climbing Evaluation Evaluation Level of Assist On Stairs Independent Devices Stair Climbing Assistive Devices Left Railing,Right Railing Technique/Endurance Stair Climbing Direction Ascend and Descend Stair Climbing Technique Step to Step Number of Steps Climbed 4 Stair Climbing Set # Repetitions (reps) 1 PT-OP-J Posture/Palpation/Skin Start: 01/15/20 19:59 Freq: Status: Active Protocol: Document 01/19/20 09:51 LRN (Rec: 01/19/20 18:25 LRN [id number]) Posture Evaluation Position Standing T-Spine Posture Increased Kyphosis L-Spine Posture Flattened,Shifted Left Knee Posture (R) Excess Flexion Ankle/Foot Posture (L) Calcaneal Inversion Comments Posture Comments R leg is short. Posterior Spinous processes ~ T7-T9. PT-OP-K Range of Motion Start: 01/15/20 19:59 Freq: Status: Active Protocol: Document 02/22/20 14:14 LRN (Rec: 02/22/20 15:06 LRN [id number]) Hip Goniometric Range of Motion Hip Right Active Hip ROM WFL No Testing Position Supine Flexion w/Knee Flexed 90 Abduction 22 Left Active Hip ROM WFL Yes Testing Position Supine Flexion w/Knee Flexed 42 Abduction 15 Ankle and Foot Goniometric Range of Motion Ankle and Foot Right Active Dorsiflexion with Knee Extended 9 Left Active Dorsiflexion with Knee Extended 5 PT-OP-M Strength Start: 01/15/20 19:59 Freq: Status: Active Protocol: Document 02/22/20 14:14 LRN (Rec: 02/22/20 15:06 LRN [id number]) Hip Strength Hip Manual Muscle Testing Right Abduction 3 Fair Comments Hip strength is 5/5 except as indicated above. Left Flexion (L2) 3- Fair- Abduction 2 Poor External Rotation 2 Poor PT-OP-Q Treatments Start: 01/15/20 19:59 Freq: Status: Active Protocol: Document 03/21/20 14:23 LRN (Rec: 03/21/20 15:11 LRN [id number]) Therapeutic Exercises Supine Exercises Bridge Supine Exercise Name Bridge Reps/Minutes 30x SLR Supine Exercise Name SLR Side right Reps/Minutes 30x Standing Exercises Knee Flex Standing Exercise Name Knee flex for SLS balance training Side bilateral Reps/Minutes 30x each Toe ups/heel ups Standing Exercise Name Toe ups/heel ups with hands hovering Side bilateral Equipment Used // bars, BOSU Ball Reps/Minutes 15x 2 Hip Flex Standing Exercise Name March Side bilateral Equipment Used // bars, BOSU Ball Reps/Minutes 15x 3 each Hip AB Standing Exercise Name Hip AB (SLS R for balance, SLS L for R hip strengthening) Side bilateral Equipment Used // bars, Mcdaniels Oval Balance foam Reps/Minutes 5' Hip Ext Standing Exercise Name Hip Ext Side bilateral Equipment Used // bars, Mcdaniels Oval Balance foam Reps/Minutes 15x 2 each Gait Training Gait Activity Gait with Pelvic rot left and trunk rot R Description Gait training Distance/Duration 8' Treatment Focus Pelvic rot left/trunk rot R Comments Pt needed physical cuing and some verbal cuing. Neuro Re-Education Treatment Balance Activities SLS w/hip AB/Ext Details SLS w/hip AB/Ext Surface Mcdaniels Oval pad Reps/Duration 15x 2 Comments Finger tip balance SLS w/knee flexion Details SLS w/knee flexion Surface on Mcd[place]iels Square Pad Reps/Duration 30-40x Comments Finger tip balance Self-Care/Home Management Treatment Education Patient Education Home Exercise Program Activities Self-Care/Home Management Activities Quick Verbal review of his HEP . DC's pt's supine exercises for standing exercises. PT-OP-R Modalities Start: 01/15/20 19:59 Freq: Status: Active Protocol: Document 02/25/20 14:18 LRN (Rec: 02/25/20 15:03 LRN [id number]) Hot Pack/Cold Pack Treatment Cold Pack Location R hip Patient Position Supine Treatment Duration (minutes) 10 Patient Tolerance Good PT-OP-T Assessment and Plan Start: 01/15/20 19:59 Freq: Status: Active Protocol: Document 03/21/20 14:23 LRN (Rec: 03/21/20 15:11 LRN [id number]) Physical Therapy Assessment Goals Four Impairment Decreased R LE strength and decreased function . Short Term Goal (STG) Indep SLR without difficulty to be able to transfer in/out of bed with ease. STG Duration 02/05/20 (02/29/20: MET GOAL) Nursing Home Goal (LTG) Increase R LE strength to improve pt mobility function per LEFS score no less than 39 (75% of pre-operative ability ). (03/14/20: LEFS is 49 indicating 20<40% impaired). LTG Duration 05/22/20 (03/14/20: MET GOAL) Three Impairment Requires use of FWW for gait. Short Term Goal (STG) Amb with normal gait and posture with FWW. STG Duration 02/29/20 (02/29/20: MET GOAL after training) Oven Press Tender Goal (LTG) Pt will be able to walk without use of assistive device (AD) and normal gait pattern around his home and with shopping. (03/14/20: Ambs w/o AD, gait is stiff and trunk held in R rot) LTG Duration 05/22/20 (03/17/20: Improving ) Two Impairment Decreased stability with gait (TUG 17 secs) Short Term Goal (STG) Pt will be able to ambulate on level with use of cane or no assistive device. STG Duration 03/19/20 (02/29/20: MET GOAL ) Nursing Home Goal (LTG) Improve stability with gait per TUG score of 11 (1<20% impaire) or less. (03/21/20: TUG score is 10.98 secs) LTG Duration 05/22/20 (03/21/20: MET GOAL ) One Impairment Lacks appropriate post op HEP Nursing Home Goal (LTG) Pt will be independent in a self care post-operative HEP, including hip strengthening exercises for flex & ext and ankle strengthening and standing balance exercises. LTG Duration 05/22/20 (03/14/20: MET GOAL) Progress Towards Goals Progress Comments Improved arm swing with gait. TUG score improved to 11 secs from 12 secs. Assessment Summary Assessment Pt able to ambulate stairs safely without hand rails. Gait is with good arm swings, but he holds his trunk somewhat ridgid. His gait mechanics improve with repetition of gait. His LE strength is good and stability with gait has improved per TUG score above, with goal met . Physical Therapy Plan Frequency and Duration Frequency of Treatment 2x/Week Plan of Care Start Date 02/22/20 Plan of Care End Date 05/22/20 Next Visit Focus/Plan Next Note Type Discharge Summary Next Visit Plan R RIO rehab. Focus on normalizing gait. Try gait training on TM for repetition of gait. DC next treatment to HEP
--- NOTE | 2020-03-24 16:12 | PT.OTN ---
Current Diagnoses Unilateral primary osteoarthritis, right hip (03/24/20) Other abnormalities of gait and mobility (03/24/20) Physical Therapy Treatment Note PT-OP-A Visit Information Start: 01/15/20 19:59 Freq: Status: Active Protocol: Document 03/24/20 15:04 LRN (Rec: 03/24/20 15:52 LRN [id number]) Out-Patient Physical Therapy Visit Information Visit Information Visit Type Treatment Note Visit Note Pt 5.5 wks post-op. Visit Start Time 15:04 Visit Stop Time 15:46 Total Visit Minutes 41 Visit Number 13 Evaluation Information Evaluation Date 01/19/20 Precautions Precautions Heart attack 1987, Heart disease, CABG x 2, RPP 2 5 stent, Hernia, Back pain, Controlled blood pressure. PT-OP-B Current Condition Start: 01/15/20 19:59 Freq: Status: Active Protocol: Document 02/22/20 14:14 LRN (Rec: 02/22/20 15:06 LRN [id number]) Current Condition History of Current Condition Onset Date 02/15/20 Current Complaints Not painful with meds. R Leg weak,primary c/o is needs FWW to walk. History of Current Condition R RIO surgery in [place]. Hospitalized 3 days due to cardiac issues associated to medications and was having angina. Cardiac issue resolved but is going to be put on a heart monitor in 2 days. The following day will have PT. He reports no problems since the medications were ironed out. Treatment Goals Patient/Caregiver Goals Pt goal: Walk normally around house and with shopping. 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 Using raised toilet seat with handles for toileting. Personal Factors Other Personal Factors That May Effect Caregiver for spouse Therapy/Recovery Hx of heart disease with heart attack in 1987 and CABG x 2 and 5 stents. PT-OP-C Subjective Start: 01/15/20 19:59 Freq: Status: Active Protocol: Document 03/24/20 15:04 LRN (Rec: 03/24/20 15:52 LRN [id number]) OP-PT Subjective Patient Comments Patient Comments No complaints. Seeing MD for 6 wk post op visit on 03/30. PT-OP-E Functional Tests Start: 01/15/20 19:59 Freq: Status: Active Protocol: Document 03/24/20 15:04 LRN (Rec: 03/24/20 15:52 LRN [id number]) Functional Tests Timed Up and Go (TUG) Score 11 TUG Impairment Rating 1 to <20% Impaired (Score 11) PT-OP-G Mobility & Gait Start: 01/15/20 19:59 Freq: Status: Active Protocol: Document 03/24/20 15:04 LRN (Rec: 03/24/20 15:52 LRN [id number]) OP Mobility Evaluation Bed Mobility Rolling Independent. Supine to and from Sit Independent. Transfers Sit to Stand Independent without use of hands. PT-OP-J Posture/Palpation/Skin Start: 01/15/20 19:59 Freq: Status: Active Protocol: Document 01/19/20 09:51 LRN (Rec: 01/19/20 18:25 LRN [id number]) Posture Evaluation Position Standing T-Spine Posture Increased Kyphosis L-Spine Posture Flattened,Shifted Left Knee Posture (R) Excess Flexion Ankle/Foot Posture (L) Calcaneal Inversion Comments Posture Comments R leg is short. Posterior Spinous processes ~ T7-T9. PT-OP-K Range of Motion Start: 01/15/20 19:59 Freq: Status: Active Protocol: Document 03/24/20 15:04 LRN (Rec: 03/24/20 15:52 LRN [id number]) Hip Goniometric Range of Motion Hip Right Active Hip ROM WFL No Testing Position Supine Flexion w/Knee Flexed 95 Abduction 25 Left Active Hip ROM WFL Yes Testing Position Supine Flexion w/Knee Flexed 100 Abduction 35 PT-OP-M Strength Start: 01/15/20 19:59 Freq: Status: Active Protocol: Document 03/24/20 15:04 LRN (Rec: 03/24/20 15:52 LRN [id number]) Hip Strength Hip Manual Muscle Testing Right Flexion (L2) 5 Normal Extension (S1) 5 Normal Abduction 5 Normal Left Flexion (L2) 5 Normal Extension (S1) 5 Normal Abduction 5 Normal Comments Hip strength is 5/5. PT-OP-Q Treatments Start: 01/15/20 19:59 Freq: Status: Active Protocol: Document 03/24/20 15:04 LRN (Rec: 03/24/20 15:52 LRN [id number]) Therapeutic Exercises Supine Exercises Knee to chest & hip AB Supine Exercise Name KTC AROM & hip AB Comments ROM taken Bridge Supine Exercise Name Bridge Reps/Minutes 30x Comments Hip Ext - Lacks 10 degs. SLR Supine Exercise Name SLR Side right Reps/Minutes 30x Hip AB Supine Exercise Name Hip AB Side right Reps/Minutes 30x Standing Exercises Hip AB Equipment Used Bar Neuro Re-Education Treatment Balance Activities SLS w/hip AB/Ext Details SLS w/hip AB/Ext Surface Mcdaniels Oval pad Equipment Bar Reps/Duration 10' Comments Finger tip > hovering balance SLS w/knee flexion Details SLS w/knee flexion Surface on [place] Pad Equipment //Bars Reps/Duration 30-40x Comments Finger tip > hovering balance PT-OP-R Modalities Start: 01/15/20 19:59 Freq: Status: Active Protocol: Document 02/25/20 14:18 LRN (Rec: 02/25/20 15:03 LRN [id number]) Hot Pack/Cold Pack Treatment Cold Pack Location R hip Patient Position Supine Treatment Duration (minutes) 10 Patient Tolerance Good PT-OP-T Assessment and Plan Start: 01/15/20 19:59 Freq: Status: Active Protocol: Document 03/24/20 15:04 LRN (Rec: 03/24/20 15:52 LRN [id number]) Physical Therapy Assessment Goals Four Impairment Decreased R LE strength and decreased function . Short Term Goal (STG) Indep SLR without difficulty to be able to transfer in/out of bed with ease. STG Duration 02/05/20 (02/29/20: MET GOAL) Audiology Doctor Goal (LTG) Increase R LE strength to improve pt mobility function per LEFS score no less than 39 (75% of pre-operative ability ). (03/14/20: LEFS is 49 indicating 20<40% impaired). LTG Duration 05/22/20 (03/14/20: MET GOAL) Three Impairment Requires use of FWW for gait. Short Term Goal (STG) Amb with normal gait and posture with FWW. STG Duration 02/29/20 (02/29/20: MET GOAL) Audiology Doctor Goal (LTG) Pt will be able to walk without use of assistive device (AD) and normal gait pattern around his home and with shopping. (03/14/20: Ambs w/o AD, gait is stiff and trunk held in R rot) LTG Duration 05/22/20 (03/24/20: MET GOAL, per pt) Two Impairment Decreased stability with gait (TUG 17 secs) Short Term Goal (STG) Pt will be able to ambulate on level with use of cane or no assistive device. STG Duration 03/19/20 (02/29/20: MET GOAL ) Audiology Doctor Goal (LTG) Improve stability with gait per TUG score of 11 (1<20% impaire) or less. (03/21/20: TUG score is 10.98 secs) LTG Duration 05/22/20 (03/21/20: MET GOAL ) One Impairment Lacks appropriate post op HEP Audiology Doctor Goal (LTG) Pt will be independent in a self care post-operative HEP, including hip strengthening exercises for flex & ext and ankle strengthening and standing balance exercises. LTG Duration 05/22/20 (03/14/20: MET GOAL) Progress Towards Goals Progress Comments Normal gait except decreased lumbar lordosis and R foot in AB due to ankle dysfunction. Assessment Summary Assessment Pt is doing very well with return of R hip strength in areas not limited by ROM precautions. He has slight weakness of his R hip gluteals and gluteus medius muscle, causing to demonstrate a slight jump when ascending steps and slight limp with gait. His R single leg stance (SLS) is decreased but he is aware of self care balance exercises to improve SLS. Pt is ready for discharge to his independent HEP. Physical Therapy Plan Discharge Physical Therapy Discharge Reasons Goals Met Discharge Comments Pt is doing very well 5.5 weeks post operatively. He is ready to continue progressing his balance and improving his gait independently. Thank you for your referral.
--- NOTE | 2020-03-24 16:14 | PT.OTN ---
Current Diagnoses Unilateral primary osteoarthritis, right hip (03/24/20) Other abnormalities of gait and mobility (03/24/20) Physical Therapy Treatment Note PT-OP-A Visit Information Start: 01/15/20 19:59 Freq: Status: Active Protocol: Document 03/24/20 15:04 LRN (Rec: 03/24/20 15:52 LRN [id number]) Out-Patient Physical Therapy Visit Information Visit Information Visit Type Treatment Note Visit Note Pt 5.5 wks post-op. Visit Start Time 15:04 Visit Stop Time 15:46 Total Visit Minutes 41 Visit Number 13 Evaluation Information Evaluation Date 01/19/20 Precautions Precautions Heart attack 1987, Heart disease, CABG x 2, RPP 2 5 stent, Hernia, Back pain, Controlled blood pressure. PT-OP-B Current Condition Start: 01/15/20 19:59 Freq: Status: Active Protocol: Document 02/22/20 14:14 LRN (Rec: 02/22/20 15:06 LRN [id number]) Current Condition History of Current Condition Onset Date 02/15/20 Current Complaints Not painful with meds. R Leg weak,primary c/o is needs FWW to walk. History of Current Condition R RIO surgery in [place]. Hospitalized 3 days due to cardiac issues associated to medications and was having angina. Cardiac issue resolved but is going to be put on a heart monitor in 2 days. The following day will have PT. He reports no problems since the medications were ironed out. Treatment Goals Patient/Caregiver Goals Pt goal: Walk normally around house and with shopping. 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 Using raised toilet seat with handles for toileting. Personal Factors Other Personal Factors That May Effect Caregiver for spouse Therapy/Recovery Hx of heart disease with heart attack in 1987 and CABG x 2 and 5 stents. PT-OP-C Subjective Start: 01/15/20 19:59 Freq: Status: Active Protocol: Document 03/24/20 15:04 LRN (Rec: 03/24/20 15:52 LRN [id number]) OP-PT Subjective Patient Comments Patient Comments No complaints. Seeing MD for 6 wk post op visit on 03/30. Patient Questionnaires Lower Extremity Functional Scale LEFS Score 70 LEFS Impairment 1 to 19% Impaired (Score 63-79 ) OP-PT Pain Assessment Pain Assessment Grid Paper Pain Assessment Grid Completed Yes Location Low back Pain Location Details Central low back Intensity 1 Scale Used Numeric (0 - 10) R hip Pain Location Details No pain noted at R hip Intensity 0 PT-OP-E Functional Tests Start: 01/15/20 19:59 Freq: Status: Active Protocol: Document 03/24/20 15:04 LRN (Rec: 03/24/20 15:52 LRN [id number]) Functional Tests Timed Up and Go (TUG) Score 11 TUG Impairment Rating 1 to <20% Impaired (Score 11) PT-OP-G Mobility & Gait Start: 01/15/20 19:59 Freq: Status: Active Protocol: Document 03/24/20 15:04 LRN (Rec: 03/24/20 15:52 LRN [id number]) OP Mobility Evaluation Bed Mobility Rolling Independent. Supine to and from Sit Independent. Transfers Sit to Stand Independent without use of hands. PT-OP-J Posture/Palpation/Skin Start: 01/15/20 19:59 Freq: Status: Active Protocol: Document 01/19/20 09:51 LRN (Rec: 01/19/20 18:25 LRN [id number]) Posture Evaluation Position Standing T-Spine Posture Increased Kyphosis L-Spine Posture Flattened,Shifted Left Knee Posture (R) Excess Flexion Ankle/Foot Posture (L) Calcaneal Inversion Comments Posture Comments R leg is short. Posterior Spinous processes ~ T7-T9. PT-OP-K Range of Motion Start: 01/15/20 19:59 Freq: Status: Active Protocol: Document 03/24/20 15:04 LRN (Rec: 03/24/20 15:52 LRN [id number]) Hip Goniometric Range of Motion Hip Right Active Hip ROM WFL No Testing Position Supine Flexion w/Knee Flexed 95 Abduction 25 Left Active Hip ROM WFL Yes Testing Position Supine Flexion w/Knee Flexed 100 Abduction 35 PT-OP-M Strength Start: 01/15/20 19:59 Freq: Status: Active Protocol: Document 03/24/20 15:04 LRN (Rec: 03/24/20 15:52 LRN [id number]) Hip Strength Hip Manual Muscle Testing Right Flexion (L2) 5 Normal Extension (S1) 5 Normal Abduction 5 Normal Left Flexion (L2) 5 Normal Extension (S1) 5 Normal Abduction 5 Normal Comments Hip strength is 5/5. PT-OP-Q Treatments Start: 01/15/20 19:59 Freq: Status: Active Protocol: Document 03/24/20 15:04 LRN (Rec: 03/24/20 15:52 LRN [id number]) Therapeutic Exercises Supine Exercises Knee to chest & hip AB Supine Exercise Name KTC AROM & hip AB Comments ROM taken Bridge Supine Exercise Name Bridge Reps/Minutes 30x Comments Hip Ext - Lacks 10 degs. SLR Supine Exercise Name SLR Side right Reps/Minutes 30x Hip AB Supine Exercise Name Hip AB Side right Reps/Minutes 30x Standing Exercises Hip AB Equipment Used Bar Neuro Re-Education Treatment Balance Activities SLS w/hip AB/Ext Details SLS w/hip AB/Ext Surface Mcdaniels Oval pad Equipment Bar Reps/Duration 10' Comments Finger tip > hovering balance SLS w/knee flexion Details SLS w/knee flexion Surface on [place] [place] Pad Equipment //Bars Reps/Duration 30-40x Comments Finger tip > hovering balance Self-Care/Home Management Treatment Education Patient Education Home Exercise Program Activities Self-Care/Home Management Activities Issued & reviewed HEP: Clamshell with feet together and with feet separate. PT-OP-R Modalities Start: 01/15/20 19:59 Freq: Status: Active Protocol: Document 02/25/20 14:18 LRN (Rec: 02/25/20 15:03 LRN [id number]) Hot Pack/Cold Pack Treatment Cold Pack Location R hip Patient Position Supine Treatment Duration (minutes) 10 Patient Tolerance Good PT-OP-T Assessment and Plan Start: 01/15/20 19:59 Freq: Status: Active Protocol: Document 03/24/20 15:04 LRN (Rec: 03/24/20 15:52 LRN [id number]) Physical Therapy Assessment Goals Four Impairment Decreased R LE strength and decreased function . Short Term Goal (STG) Indep SLR without difficulty to be able to transfer in/out of bed with ease. STG Duration 02/05/20 (02/29/20: MET GOAL) Rate Marker Goal (LTG) Increase R LE strength to improve pt mobility function per LEFS score no less than 39 (75% of pre-operative ability ). (03/14/20: LEFS is 49 indicating 20<40% impaired). LTG Duration 05/22/20 (03/14/20: MET GOAL) Three Impairment Requires use of FWW for gait. Short Term Goal (STG) Amb with normal gait and posture with FWW. STG Duration 02/29/20 (02/29/20: MET GOAL) Rate Marker Goal (LTG) Pt will be able to walk without use of assistive device (AD) and normal gait pattern around his home and with shopping. (03/14/20: Ambs w/o AD, gait is stiff and trunk held in R rot) LTG Duration 05/22/20 (03/24/20: MET GOAL, per pt) Two Impairment Decreased stability with gait (TUG 17 secs) Short Term Goal (STG) Pt will be able to ambulate on level with use of cane or no assistive device. STG Duration 03/19/20 (02/29/20: MET GOAL ) Senior Living Goal (LTG) Improve stability with gait per TUG score of 11 (1<20% impaire) or less. (03/21/20: TUG score is 10.98 secs) LTG Duration 05/22/20 (03/21/20: MET GOAL ) One Impairment Lacks appropriate post op HEP Rate Marker Goal (LTG) Pt will be independent in a self care post-operative HEP, including hip strengthening exercises for flex & ext and ankle strengthening and standing balance exercises. LTG Duration 05/22/20 (03/14/20: MET GOAL) Progress Towards Goals Progress Comments Normal gait except decreased lumbar lordosis and R foot in AB due to ankle dysfunction. Assessment Summary Assessment Pt is doing very well with return of R hip strength in areas not limited by ROM precautions, and functional R hip AROM for flex and AB. He has slight weakness of his R hip gluteals and gluteus medius muscle, causing him to demonstrate a slight jump/lift when ascending steps, and a slight limp with gait. His R single leg stance (SLS) is decreased but he is aware of self care balance exercises to improve SLS. Pt is ready for discharge to his independent HEP. Physical Therapy Plan Discharge Physical Therapy Discharge Reasons Goals Met Discharge Comments Pt is doing very well 5.5 weeks post operatively. He is ready to continue progressing his balance and improving his gait independently. Thank you for your referral.
== END 2020-04-01 08:20 | disposition home or self-care (01) ==
LOC: PHYS 15:00
PROVIDERS: PCP Internal Medicine; Referring Provider Orthopaedic Surgery Sports Medicine; Visit Provider Orthopaedic Surgery Sports Medicine
DX: M16.11 Unilateral primary osteoarthritis, right hip (principal); R26.89 Other abnormalities of gait and mobility
CPT/HCPCS: 97110; 97112; 97116; 97162; 97530; 97535

== ENCOUNTER → 2020-07-18 13:40 | Outpatient (CLI) | payer MEDICARE, OTHER, SELFPAY ==
[2020-07-18 15:16] LABS: COVID19 -Nasal RAPID Negative (Negative)
== END ==
PROVIDERS: PCP Internal Medicine; Visit Provider Physician Assistant
DX: Z20.822 Contact with and (suspected) exposure to COVID-19 (principal)
CPT/HCPCS: 87635; C9803

== ENCOUNTER → 2020-09-29 14:57 | Outpatient (ROUT) | payer MEDICARE, OTHER, SELFPAY ==
[2020-09-29 16:36] LABS: Add Manual Diff / Slide Review NO; Basophils Absolute Auto 0 /uL (0-100); Basophils Percent Auto 0.6 % (0-2); Eosinophils Absolute Auto 200 /uL (0-450); Hematocrit 43.1 % (41-53); Hemoglobin 14.6 g/dL (13.5-17.5); Lymphocytes Absolute Auto 2400 /uL (1100-4500); Mean Corpuscular HGB Conc 33.9 % (30-36); Mean Corpuscular Hemoglobin 36.1 PG (26-34); Mean Corpuscular Volume 106.2 fL (80-100); Monocytes Absolute Auto 500 /uL (0-900); Neutrophils Absolute Auto 3600 /uL (1500-7000); Neutrophils Percent Auto 52.4 % (50-75); Platelet Count 191 X10^3/uL (150-400); Red Blood Cell Count 4.06 X10^6/uL (4.5-5.9); Red Cell Distribution Width 14.2 % (11.6-14.8); White Blood Cell Count 6.8 X10^3/uL (4.5-11.0)
[2020-09-29 16:48] LABS: Aspartate Aminotransferase 41 IU/L (17-59); BUN Creatinine Ratio 21.7 (6-22); Blood Urea Nitrogen 25 mg/dL (9-20); Calcium 9.4 mg/dL (8.4-10.2); Carbon Dioxide 28 mmol/L (22-32); Chloride 105 mmol/L (98-107); Cholesterol 137 mg/dL (140-199); Estimated Glomerular Filt Rate > 60.0 mL/min (>60); Glucose 125 mg/dL (80-110); HDL Cholesterol 37 mg/dL (40-60); HEMOLYSIS < 15 (0-50); LDL Cholesterol Calculated 62 mg/dL (<100); Potassium 4.5 mmol/L (3.4-5.1); Sodium 140 mmol/L (137-145); Triglycerides 192 mg/dL (35-150)
== END ==
PROVIDERS: PCP Internal Medicine; Visit Provider Internal Medicine
DX: I10 Essential (primary) hypertension (principal); E78.2 Mixed hyperlipidemia; M10.9 Gout, unspecified
CPT/HCPCS: 80048; 80061; 84450; 84550; 85025

== ENCOUNTER 2020-10-17 14:00 | Outpatient (RCR) | payer MEDICARE, OTHER, SELFPAY | END 2020-10-17 16:00 | LOC: CAR 14:00 | PROVIDERS: PCP Internal Medicine; Referring Provider Internal Medicine Cardiovascular Disease; Visit Provider Internal Medicine Cardiovascular Disease | DX: I21.3 ST elevation (STEMI) myocardial infarction of unspecified site (principal) | CPT/HCPCS: 93798 ==

== ENCOUNTER → 2021-02-03 14:25 | Outpatient (CLI) | payer MEDICARE, OTHER, SELFPAY ==
[2021-02-03 15:36] LABS: COVID19 -Nasal RAPID POSITIVE (Negative)
== END ==
PROVIDERS: PCP Internal Medicine; Visit Provider Physician Assistant
DX: U07.1 COVID-19 (principal)
CPT/HCPCS: 87635

== ENCOUNTER → 2022-01-30 09:23 | Outpatient (CLI) | payer MEDICARE, OTHER, SELFPAY ==
[2022-01-30 10:40] LABS: Hematocrit 42.9 % (41-53); Hemoglobin 14.9 g/dL (13.5-17.5); Mean Corpuscular HGB Conc 34.6 % (30-36); Mean Corpuscular Hemoglobin 35.9 PG (26-34); Mean Corpuscular Volume 103.7 fL (80-100); Platelet Count 175 X10^3/uL (150-400); Red Blood Cell Count 4.14 X10^6/uL (4.5-5.9); Red Cell Distribution Width 13.8 % (11.6-14.8); White Blood Cell Count 6.6 X10^3/uL (4.5-11.0)
[2022-01-30 10:57] LABS: Alanine Aminotransferase 31 IU/L (<50); Albumin Globulin Ratio 1.5 (1.0-2.8); Alkaline Phosphatase 72 U/L (38-126); Aspartate Aminotransferase 37 IU/L (17-59); BUN Creatinine Ratio 23.7 (6-22); Bilirubin Total 1.9 mg/dL (0.2-1.3); Blood Urea Nitrogen 28 mg/dL (9-20); Calcium 8.9 mg/dL (8.4-10.2); Carbon Dioxide 29 mmol/L (22-32); Chloride 103 mmol/L (98-107); Cholesterol 116 mg/dL (140-199); Estimated Glomerular Filt Rate > 60 mL/min (>60); Globulin 2.6 g/dL (1.7-4.1); Glucose 99 mg/dL (80-110); HDL Cholesterol 33 mg/dL (40-60); HEMOLYSIS < 15 (0-50); LDL Cholesterol Calculated 53 mg/dL (<100); Potassium 4.4 mmol/L (3.4-5.1); Sodium 138 mmol/L (137-145); Total Protein 6.6 g/dL (6.3-8.2); Triglycerides 151 mg/dL (35-150)
[2022-01-30 11:26] LABS: Prostate Specific Antigen < 0.064 ng/mL (0.10-4.00)
[2022-01-30 11:34] LABS: TSH w/ Reflex to FT4 1.25 uIU/mL (0.47-4.68)
== END ==
PROVIDERS: PCP Internal Medicine; Referring Provider Internal Medicine; Visit Provider Internal Medicine
DX: E78.2 Mixed hyperlipidemia (principal); Z85.46 Personal history of malignant neoplasm of prostate; I10 Essential (primary) hypertension; I25.10 Atherosclerotic heart disease of native coronary artery without angina pectoris
CPT/HCPCS: 36415; 80053; 80061; 84153; 84443; 85027

== ENCOUNTER → 2022-01-31 13:04 | Outpatient (CLI) | payer MEDICARE, OTHER, SELFPAY ==
[2022-02-01 14:45] LABS: Vitamin B12 343 pg/mL (239-931)
== END ==
PROVIDERS: PCP Internal Medicine; Visit Provider Internal Medicine
DX: E53.8 Deficiency of other specified B group vitamins (principal)
CPT/HCPCS: 82607

== ENCOUNTER → 2022-07-04 15:22 | Outpatient (CLI) | payer MEDICARE, OTHER, SELFPAY ==
[2022-07-04 16:07] LABS: Add Manual Diff / Slide Review NO; Basophils Absolute Auto 100 /uL (0-100); Basophils Percent Auto 0.9 % (0-2); Eosinophils Absolute Auto 200 /uL (0-450); Eosinophils Percent Auto 1.8 % (2-4); Hematocrit 43.1 % (41-53); Hemoglobin 14.8 g/dL (13.5-17.5); Lymphocytes Absolute Auto 2400 /uL (1100-4500); Lymphocytes Percent Auto 28.9 % (25-40); Mean Corpuscular HGB Conc 34.4 % (30-36); Mean Corpuscular Hemoglobin 36.3 PG (26-34); Mean Corpuscular Volume 105.6 fL (80-100); Monocytes Absolute Auto 700 /uL (0-900); Neutrophils Absolute Auto 5000 /uL (1500-7000); Neutrophils Percent Auto 60.4 % (50-75); Platelet Count 189 X10^3/uL (150-400); Red Blood Cell Count 4.08 X10^6/uL (4.5-5.9); Red Cell Distribution Width 13.9 % (11.6-14.8); White Blood Cell Count 8.3 X10^3/uL (4.5-11.0)
[2022-07-04 16:27] LABS: Blood Urea Nitrogen 26 mg/dL (9-20); Calcium 9.1 mg/dL (8.4-10.2); Carbon Dioxide 24 mmol/L (22-32); Chloride 103 mmol/L (98-107); Cholesterol 121 mg/dL (140-199); Estimated Glomerular Filt Rate > 60 mL/min (>60); Glucose 107 mg/dL (80-110); HDL Cholesterol 36 mg/dL (40-60); HEMOLYSIS < 15 (0-50); LDL Cholesterol Calculated 44 mg/dL (<100); Potassium 4.6 mmol/L (3.4-5.1); Sodium 137 mmol/L (137-145); Triglycerides 206 mg/dL (35-150)
[2022-07-04 16:37] LABS: Troponin I 0.014 ng/mL (0.01-0.034)
== END ==
PROVIDERS: PCP Internal Medicine; Referring Provider Internal Medicine Cardiovascular Disease; Visit Provider Internal Medicine Cardiovascular Disease
DX: I25.10 Atherosclerotic heart disease of native coronary artery without angina pectoris (principal); R13.19 Other dysphagia
CPT/HCPCS: 36415; 80048; 80061; 84484; 85025; 99213

== ENCOUNTER 2022-07-05 14:14 | Day surgery (SDC) | payer MEDICARE, OTHER, SELFPAY ==
[2022-07-05] VITALS (10 sets, daily range): BP systolic 80–139; BP diastolic 45–93; PULSE 44–94; RESP 12–16; TEMP 36.2–36.6; O2SAT 95–98; BMI 23.6
--- NOTE | 2022-07-05 | PATH_ITS ---
[facility] Accession Number: [id number] No. of containers..01 Tissue . 01 Material submitted: . stomach - ANTRUM . 01 Diagnosis: Stomach, Antrum, Biopsy: Antral mucosa with reactive gastropathy and mild chronic inflammation. Negative for Helicobacter by immunohistochemistry. Negative for intestinal metaplasia. Negative for dysplasia and malignancy. MRV 07/11/2022 1516 Local . 01 Electronically signed: . Sallie Cartagena MD, Pathologist NPI- [id number] . 01 Gross description: . ANTRUM: Received in formalin are 4 fragment(s) of sanders, soft tissue measuring 0.1 x 0.1 x 0.1 cm to 0.3 x 0.1 x 0.1 cm submitted entirely in 1 cassette(s) /GRIFFIN 07/06/2022 0055 Local . 01 Microscopic: . An immunohistochemical stain was performed to evaluate for Helicobacter organisms and is negative. The control stain showed appropriate reactivity. . * This test was developed and its performance characteristics determined by [facility]. It has not been cleared or approved by the U.S. Food and Drug Administration. The FDA has determined that such clearance or approval is not necessary. This test is used for clinical purposes. It should not be regarded as investigational or for research. . 01 Pathologist provided ICD-10: R13.10 . 01 CPT . 260372, R47144 Performed at: 01 [facility] [address] [place] [address], [place], [place] [id number] MD Yeison Forrest MD Phone: [phone]
[2022-07-05] MEDS: LACTATED RINGERS 1,000 ML 120 ML IV (14:44)
--- NOTE | 2022-07-05 14:53 | PM.PREOP ---
Pre-operative Note COVID-19 COVID-19 status: Not tested Interval Note History & Physical reviewed/Exam performed by Physician: Yes Changes to H&P: No ASA Class (for procedural sedation): III
--- NOTE | 2022-07-05 15:19 | PM.OP.EGD ---
Operative Date/Time/Diagnoses Date of procedure: 07/05/22 Time of procedure: 15:19 Pre-op diagnosis: Dysphagia Post-op diagnosis: same Procedure & Clinicians Study performed: Esophagogastroduodenoscopy Same procedure as scheduled: Yes Surgeon: Saeid Jon Procedure Notes Procedure in detail: Surgeon: Saeid Jon MD Anesthesia: Luly Vargas CRNA A timeout was performed. A bite blocked was placed. The patient was positioned in the left lateral decubitus position. Anesthesia was administered. The endoscope was inserted through the bite block and passed through the esophagus and stomach and into the duodenum. The duodenal mucosa appeared normal. The scope was withdrawn into the duodenal bulb and no abnormalities were noted. The scope was withdrawn into the stomach. There was some mild antritis and random biopsies were taken from the antrum. The rest of the stomach was normal. The scope was retroflexed and no hiatal hernia was seen. The scope was withdrawn into the esophagus and no abnormalities were seen. The remainder of the esophagus was normal. The scope was withdrawn. The patient was awakened and brought to recovery. Sedation time: 4 minutes Findings: Mild antritis Post-procedure Disposition: PACU
--- NOTE | 2022-07-05 15:53 | SUR.PHASEI ---
HR in the 80's and 90's. Then will suddenly drop to 38-45, Sinus bradycardia. BP stable, denies CP, SOB, dizziness or lightheadedness. [employer] and Dr. Jon made aware. Call to oatients cardiolodist by [employer]. Pt states he feels fine.
--- NOTE | 2022-07-05 16:36 | SUR.PHASEI ---
Transfer to ED, Report called to Pablo GEE. Family updated. Taken on monitor with all belongings.
== END 2022-07-05 16:39 | disposition home or self-care (01) ==
PROVIDERS: PCP Internal Medicine; Referring Provider Surgery; Visit Provider Surgery
PROC: 0DJ08ZZ Inspection of Upper Intestinal Tract, Via Natural or Artificial Opening Endoscopic (ICD-10-PCS; CPT 43235; principal; 2022-07-05 15:00)
DX: R13.10 Dysphagia, unspecified (principal); Z20.822 Contact with and (suspected) exposure to COVID-19; R00.1 Bradycardia, unspecified; K29.50 Unspecified chronic gastritis without bleeding; Z79.899 Other long term (current) drug therapy; K31.9 Disease of stomach and duodenum, unspecified
CPT/HCPCS: 43239; 36415; 71045; 80053; 82550; 82553; 83690; 83735; 84484; 85025; 85610; 85730; 93005; 99283; U0003; U0005; J2704

== ENCOUNTER 2022-07-05 16:27 | Emergency (ER) | payer MEDICARE, OTHER, SELFPAY ==
[2022-07-05] VITALS (7 sets, daily range): BP systolic 124–145; BP diastolic 60–68; PULSE 77–94; RESP 11–18; TEMP 36.6–36.8; O2SAT 96–100; BMI 23.6
--- NOTE | 2022-07-05 16:30 | DI.RAD.S_ITS ---
PROCEDURE: XR CHEST 1V INDICATIONS: chest pain TECHNIQUE: One view of the chest was acquired. COMPARISON: [facility], CR, XR CHEST 2V, 09/04/2018, 9:29. FINDINGS: Surgical changes and devices: None. Lungs and pleura: Lungs are clear. No pleural effusions or pneumothorax. Mediastinum: Mediastinal contours appear normal. Heart size is normal. Bones and chest wall: No suspicious bony lesions. Overlying soft tissues appear unremarkable. IMPRESSION: No acute cardiopulmonary abnormality. Dictated by: Homero López M.D. on 07/05/2022 at 17:10 Approved by: Homero López M.D. on 07/05/2022 at 17:10
[2022-07-05 17:11] LABS: Add Manual Diff / Slide Review NO; Basophils Absolute Auto 100 /uL (0-100); Eosinophils Absolute Auto 100 /uL (0-450); Eosinophils Percent Auto 1.3 % (2-4); Hematocrit 41.3 % (41-53); Hemoglobin 14.2 g/dL (13.5-17.5); Lymphocytes Absolute Auto 2300 /uL (1100-4500); Lymphocytes Percent Auto 29.8 % (25-40); Mean Corpuscular HGB Conc 34.3 % (30-36); Mean Corpuscular Hemoglobin 35.8 PG (26-34); Mean Corpuscular Volume 104.6 fL (80-100); Monocytes Absolute Auto 500 /uL (0-900); Monocytes Percent Auto 6.6 % (3-14); Neutrophils Absolute Auto 4600 /uL (1500-7000); Neutrophils Percent Auto 61.3 % (50-75); Platelet Count 186 X10^3/uL (150-400); Red Blood Cell Count 3.95 X10^6/uL (4.5-5.9); White Blood Cell Count 7.6 X10^3/uL (4.5-11.0)
[2022-07-05 18:00] LABS: INR 1.2 (0.9-1.3); Prothrombin Time 14.1 SECONDS (10.1-12.7)
[2022-07-05 18:03] LABS: PTT Partial Thromboplastin Tim 30 SECONDS (26-36)
[2022-07-05 18:27] LABS: COVID-19 CEPHEID PCR (VTM/NP) Negative (Negative)
[2022-07-05 19:27] LABS: Alanine Aminotransferase 26 IU/L (<50); Albumin 3.7 g/dL (3.5-5.0); Albumin Globulin Ratio 1.5 (1.0-2.8); Alkaline Phosphatase 66 U/L (38-126); Aspartate Aminotransferase 34 IU/L (17-59); BUN Creatinine Ratio 20.8 (6-22); Bilirubin Total 2.3 mg/dL (0.2-1.3); Blood Urea Nitrogen 22 mg/dL (9-20); Calcium 8.8 mg/dL (8.4-10.2); Carbon Dioxide 30 mmol/L (22-32); Chloride 103 mmol/L (98-107); Creatine Kinase 145 U/L (55-170); Estimated Glomerular Filt Rate > 60 mL/min (>60); Globulin 2.5 g/dL (1.7-4.1); Glucose 82 mg/dL (80-110); HEMOLYSIS < 15 (0-50); Lipase 163 U/L (23-300); Magnesium 1.9 mg/dL (1.6-2.3); Potassium 4.1 mmol/L (3.4-5.1); Sodium 136 mmol/L (137-145); Total Protein 6.2 g/dL (6.3-8.2)
[2022-07-05 19:39] LABS: Troponin I < 0.012 ng/mL (0.01-0.034)
[2022-07-05 19:42] LABS: CKMB % Relative Index 1.2 % (1.5-5.0); Creatine Kinase MB 1.73 ng/mL (<2.37)
--- NOTE | 2022-07-05 21:57 | ED.ARRPALP ---
HPI - Arrhythmia/Palpitations General Chief Complaint: Arrhythmia/Palpitations Stated Complaint: Bradycardia Time Seen by Provider: 07/05/22 16:32 Source: patient and other Mode of arrival: other History of Present Illness HPI narrative: 86 year old male presenting with bradycardia in the setting of EGD today. Pt noted to have bradycardia to the upper 30's/low 40's that alternates with sinus rhythm in the 80-90s. Pt denies active symptoms. Pt without active symptoms prior to presentation today. Last follow up with cardiology yesterday. Pt sent directly from procedure suite to ED for further evaluation. Related Data Home Medications Medication Instructions Recorded Confirmed cholecalciferol (vitamin D3) 50 2,000 unit PO DAILY 05/19/19 07/05/22 mcg (2,000 unit) tablet (Vitamin D3) vit no.95-ferrous 1 tab PO DAILY 05/19/19 07/04/22 fumarate 28 mg-folic acid 800 mcg tablet ( Formula) clopidogrel 75 mg tablet (Plavix) 75 mg PO DAILY 02/03/21 07/05/22 atorvastatin 80 mg tablet 80 mg PO BEDTIME 01/24/22 07/05/22 isosorbide mononitrate 60 mg 60 mg PO DAILY 01/24/22 07/05/22 tablet,extended release 24 hr metoprolol tartrate 50 mg tablet 50 mg PO BID 01/24/22 07/05/22 Previous Rx's Medication Instructions Recorded allopurinol 100 mg tablet 200 mg PO DAILY #180 tabs 09/14/21 aspirin 81 mg tablet,delayed 81 mg PO DAILY #90 tabs 09/14/21 release (Adult Low Dose Aspirin) lisinopril 10 mg tablet 10 mg PO DAILY #90 tabs 09/14/21 oxybutynin chloride 5 mg tablet 5 mg PO BID-TID PRN urinary 01/24/22 incontinence #90 tabs benzonatate 100 mg capsule 100 mg PO BID-TID PRN cough #60 06/27/22 caps pantoprazole 40 mg tablet,delayed 40 mg PO DAILY #118 tabs 06/27/22 release Allergies Allergy/AdvReac Type Severity Reaction Status Date / Time No Known Drug Allergies Allergy Verified 07/04/22 16:00 Patient History Medical History Advanced directives, counseling/discussion Cataracts, bilateral (~2018) Chronic back pain Coronary artery disease (~1987) Essential hypertension Exercise-induced asthma (~1955) GERD (gastroesophageal reflux disease) (~2005) Gout (~2006) Hammertoes of both feet Hearing loss History of prostate cancer History of urinary incontinence (~2003) Measles Medicare annual wellness visit, initial Mixed hyperlipidemia Mumps (~1965) Myocardial infarction (~1987) Prostate cancer (~2003) Venous (peripheral) insufficiency Surgical History Anesthesia History of coronary artery bypass graft (~06/2009) History of hip replacement (~01/2019) History of inguinal hernia repair (~11/1986) History of radical prostatectomy Hx of CABG (~10/1987) Hx of CABG (~01/1996) Family History Father History of heart disease Hypertension Sister Cancer Grandfather History of heart disease Grandmother History of heart disease Grandfather History of heart disease Grandmother History of heart disease Social History details: (Kassi), grown children, retired household members: spouse Smoking Status: Never smoker alcohol intake: current Smoking Status: Never smoker alcohol intake frequency: holidays/special occasions only Substance Use Type: does not use Exam Narrative Exam Narrative: Vitals reviewed. Nursing note reviewed Constitutional: interactive HENT: Moist mucous membranes EYES: No scleral icterus NECK: no masses CV: Well perfused peripherally, no cyanosis present PULM: Unlabored respirations, symmetric chest rise ABD: Non-distended MS: No gross deformities, no asymmetric edema noted SKIN: Warm and dry. PSYCH: Appropriate affect NEURO: Follows simple commands, moves extremities, interactive with exam Initial Vital Signs Initial Vital Signs: Vital Signs Pulse Rate 94 H 07/05/22 16:33 Pulse Oximetry 100 07/05/22 16:33 Course Orders Ordered: ED Orders 07/05/22 16:30 XR chest 1V Stat EKG-12 Lead Stat 07/05/22 16:55 Complete Blood Count AUTO DIFF Stat 07/05/22 17:38 Partial Thromboplastin Time Stat Prothrombin Time INR Stat 07/05/22 18:49 Comprehensive Metabolic Panel Stat Lipase Stat Magnesium Stat Troponin & CK Cardiac Panel Stat Vital Signs Vital signs: Vital Signs - 8 hr 07/05/22 17:04 07/05/22 16:33 07/05/22 17:00 Temperature 98.2 F Pulse Rate 90 94 H Respiratory Rate 17 Blood Pressure 124/65 145/68 H Pulse Oximetry 100 100 Oxygen Delivery Method Room Air 07/05/22 17:00 07/05/22 17:05 07/05/22 17:10 Temperature Pulse Rate 77 89 91 H Respiratory Rate 11 L 18 Blood Pressure Pulse Oximetry 98 99 99 Oxygen Delivery Method 07/05/22 17:15 07/05/22 21:16 Temperature 97.8 F Pulse Rate 87 92 H Respiratory Rate 16 Blood Pressure 125/60 Pulse Oximetry 99 96 Oxygen Delivery Method Room Air MDM - Arrhythmia/Palpitations Lab Data 07/05/22 16:55 07/05/22 18:49 Labs: Lab Results 07/05/22 07/05/22 07/05/22 Range/Units 16:55 16:55 17:38 WBC 7.6 (4.5-11.0) X10^3/uL RBC 3.95 L (4.5-5.9) X10^6/uL Hgb 14.2 (13.5-17.5) g/dL Hct 41.3 (41-53) % MCV 104.6 H (80-100) fL MCH 35.8 H (26-34) PG MCHC 34.3 (30-36) % RDW 14.0 (11.6-14.8) % Plt Count 186 (150-400) X10^3/uL Neut % (Auto) 61.3 (50-75) % Lymph % (Auto) 29.8 (25-40) % [place] % (Auto) 6.6 (3-14) % Eos % (Auto) 1.3 L (2-4) % Baso % (Auto) 1.0 (0-2) % Neut # (Auto) 4600 (1755-3076) /uL Lymph # (Auto) 2300 (4602-4057) /uL [place] # (Auto) 500 (0-900) /uL Eos # (Auto) 100 (0-450) /uL Baso # (Auto) 100 (0-100) /uL PT 14.1 H (10.1-12.7) SECONDS INR 1.2 (0.9-1.3) APTT 30 (26-36) SECONDS Sodium (137-145) mmol/L Potassium (3.4-5.1) mmol/L Chloride (98-107) mmol/L Carbon Dioxide (22-32) mmol/L BUN (9-20) mg/dL Creatinine (0.66-1.25) mg/dL Estimated GFR (>60) mL/min BUN/Creatinine Ratio (6-22) Glucose (80-110) mg/dL Calcium (8.4-10.2) mg/dL Magnesium (1.6-2.3) mg/dL Total Bilirubin (0.2-1.3) mg/dL AST (17-59) IU/L ALT (<50) IU/L Alkaline Phosphatase (38-126) U/L Total Creatine Kinase (55-170) U/L CK-MB (CK-2) (<2.37) ng/mL CK-MB (CK-2) Rel Index (1.5-5.0) % Troponin I (0.01-0.034) ng/mL Total Protein (6.3-8.2) g/dL Albumin (3.5-5.0) g/dL Globulin (1.7-4.1) g/dL Albumin/Globulin Ratio (1.0-2.8) Lipase (23-300) U/L SARS-CoV-2 (PCR) Negative (Negative) 07/05/22 Range/Units 18:49 WBC (4.5-11.0) X10^3/uL RBC (4.5-5.9) X10^6/uL Hgb (13.5-17.5) g/dL Hct (41-53) % MCV (80-100) fL MCH (26-34) PG MCHC (30-36) % RDW (11.6-14.8) % Plt Count (150-400) X10^3/uL Neut % (Auto) (50-75) % Lymph % (Auto) (25-40) % [place] % (Auto) (3-14) % Eos % (Auto) (2-4) % Baso % (Auto) (0-2) % Neut # (Auto) (9905-2309) /uL Lymph # (Auto) (3372-5186) /uL [place] # (Auto) (0-900) /uL Eos # (Auto) (0-450) /uL Baso # (Auto) (0-100) /uL PT (10.1-12.7) SECONDS INR (0.9-1.3) APTT (26-36) SECONDS Sodium 136 L (137-145) mmol/L Potassium 4.1 (3.4-5.1) mmol/L Chloride 103 (98-107) mmol/L Carbon Dioxide 30 (22-32) mmol/L BUN 22 H (9-20) mg/dL Creatinine 1.06 (0.66-1.25) mg/dL Estimated GFR > 60 (>60) mL/min BUN/Creatinine Ratio 20.8 (6-22) Glucose 82 (80-110) mg/dL Calcium 8.8 (8.4-10.2) mg/dL Magnesium 1.9 (1.6-2.3) mg/dL Total Bilirubin 2.3 H (0.2-1.3) mg/dL AST 34 (17-59) IU/L ALT 26 (<50) IU/L Alkaline Phosphatase 66 (38-126) U/L Total Creatine Kinase 145 (55-170) U/L CK-MB (CK-2) 1.73 (<2.37) ng/mL CK-MB (CK-2) Rel Index 1.2 L (1.5-5.0) % Troponin I < 0.012 (0.01-0.034) ng/mL Total Protein 6.2 L (6.3-8.2) g/dL Albumin 3.7 (3.5-5.0) g/dL Globulin 2.5 (1.7-4.1) g/dL Albumin/Globulin Ratio 1.5 (1.0-2.8) Lipase 163 (23-300) U/L SARS-CoV-2 (PCR) (Negative) MDM Narrative Medical decision making narrative: 86 yearl male presenting with asymptomatic bradycardia after EGD procedure with sedation. On presentation, vitals notable for HR 40's to 90's, normal range blood pressures, normal RA oxygen saturations. Physical exam notable for reassuring cardiopulmonary exam, benign abdomen. Initial concern for ACS, primary cardiac arrhythmia, electrolyte derangement, heart block, medication effect, hypovolemia. Ekg on presentation without clear evidence of heart block. Pt with normal sinus rhythm alternating with episodes of sinus bradycardia. No clear evidence of acute ischemia relative to EKG obtained yesterday. Screening labs obtained and reassuring as above. Discussed case with cardiology, Dr. Sánchez, recommending holding the patients metoprolol dosing and close outpatient followup with cardiology in clinic. Pt subsequently able to ambulate around the ED without active symptoms, maintaining heart rate in normal range. Pt subsequently discharged with plan for close outpatient follow up, return precautions discussed. Discharge Plan Departure Patient Disposition: Home Clinical Impression: Bradycardia Instructions: DI for Bradycardia Activity Restrictions/Additional Instructions: *You have been diagnosed with [bradycardia (slow heart rate) without symptoms ] *What to do: *Per our discussion with your night time nanny please hold your Metoprolol, call the office in the morning. Otherwise please continue to take your regular medications as directed. *Return to Emergency Department if you should have any new, worsening or concerning symptoms Prescriptions: No Action clopidogrel [Plavix] 75 mg tablet 75 mg PO DAILY allopurinol 100 mg tablet 200 mg PO DAILY Qty: 180 3RF lisinopril 10 mg tablet 10 mg PO DAILY Qty: 90 3RF aspirin [Adult Low Dose Aspirin] 81 mg tablet,delayed release (DR/EC) 81 mg PO DAILY Qty: 90 4RF metoprolol tartrate 50 mg tablet 50 mg PO BID isosorbide mononitrate 60 mg tablet extended release 24 hr 60 mg PO DAILY atorvastatin 80 mg tablet 80 mg PO BEDTIME oxybutynin chloride 5 mg tablet 5 mg PO BID-TID PRN (Reason: urinary incontinence) Qty: 90 11RF pantoprazole 40 mg tablet,delayed release (DR/EC) 40 mg PO DAILY Qty: 118 0RF Rx Instructions: Take one tab twice daily for 14 days then take once daily benzonatate 100 mg capsule 100 mg PO BID-TID PRN (Reason: cough) Qty: 60 0RF cholecalciferol (vitamin D3) [Vitamin D3] 2,000 unit Tablet 2,000 unit PO DAILY PNV cmb#95-ferrous fumarate-FA [ Formula] 28 mg iron- 800 mcg Tablet 1 tab PO DAILY Referrals: Terry Rogers MD [Primary Care Provider] - Stand Alone Forms: Patient Portal/API
== END 2022-07-05 21:19 | disposition home or self-care (01) ==
PROVIDERS: Emergency Provider Emergency Medicine; PCP Internal Medicine
DX: R00.1 Bradycardia, unspecified (principal); Z79.899 Other long term (current) drug therapy; Z20.822 Contact with and (suspected) exposure to COVID-19
CPT/HCPCS: 36415; 71045; 80053; 82550; 82553; 83690; 83735; 84484; 85025; 85610; 85730; 93005; U0003; U0005

== ENCOUNTER → 2022-12-13 10:30 | Outpatient (CLI) | payer MEDICARE, OTHER, SELFPAY ==
--- NOTE | 2022-12-13 10:34 | DI.RAD.S_ITS ---
PROCEDURE: XR WRIST RT MIN 3V INDICATIONS: Wrist pain TECHNIQUE: 3 views of the wrist were acquired. COMPARISON: None. FINDINGS: Bones: No acute fracture or dislocation identified. Polyarticular degenerative changes of the wrist, severe at the STT joint and radiocarpal joint. MCP joint degenerative changes also present. Hook like osteophytes at the 2nd and 3rd metacarpal heads. Soft tissues: TFCC chondrocalcinosis. IMPRESSION: 1. Polyarticular degenerative changes of the wrist and imaged hand. 2. Chondrocalcinosis is present, a nonspecific finding that can be seen in the setting of CPPD, osteoarthritis, or other etiologies. 3. Hook-like osteophytes at the 2nd and 3rd metacarpal heads, a nonspecific finding that can be seen in the setting of CPPD, osteoarthritis, hemochromatosis, or other etiologies. Dictated by: Kory Flores M.D. on 12/13/2022 at 13:46 Approved by: Kory Flores M.D. on 12/13/2022 at 13:53
== END ==
PROVIDERS: PCP Internal Medicine; Referring Provider Nurse Practitioner Family; Visit Provider Nurse Practitioner Family
DX: M11.231 Other chondrocalcinosis, right wrist (principal); M25.741 Osteophyte, right hand; S69.90XA Unspecified injury of unspecified wrist, hand and finger(s), initial encounter
CPT/HCPCS: 73110

== ENCOUNTER → 2023-04-03 11:20 | Outpatient (CLI) | payer MEDICARE, OTHER, SELFPAY ==
[2023-04-03 12:44] LABS: Hematocrit 41.2 % (41-53); Hemoglobin 14.2 g/dL (13.5-17.5); Mean Corpuscular HGB Conc 34.5 % (30-36); Mean Corpuscular Hemoglobin 36.7 PG (26-34); Mean Corpuscular Volume 106.3 fL (80-100); Platelet Count 185 X10^3/uL (150-400); Red Blood Cell Count 3.88 X10^6/uL (4.5-5.9); Red Cell Distribution Width 13.7 % (11.6-14.8); White Blood Cell Count 7.2 X10^3/uL (4.5-11.0)
[2023-04-03 13:15] LABS: Alanine Aminotransferase 31 IU/L (<50); Albumin 3.8 g/dL (3.5-5.0); Albumin Globulin Ratio 1.5 (1.0-2.8); Alkaline Phosphatase 94 U/L (38-126); Aspartate Aminotransferase 37 IU/L (17-59); BUN Creatinine Ratio 16.9 (6-22); Bilirubin Total 2.6 mg/dL (0.2-1.3); Blood Urea Nitrogen 20 mg/dL (9-20); Calcium 9.4 mg/dL (8.4-10.2); Carbon Dioxide 28 mmol/L (22-32); Chloride 106 mmol/L (98-107); Estimated Glomerular Filt Rate > 60 mL/min (>60); Globulin 2.6 g/dL (1.7-4.1); Glucose 94 mg/dL (80-110); HEMOLYSIS < 15 (0-50); Potassium 4.3 mmol/L (3.4-5.1); Sodium 141 mmol/L (137-145); Total Protein 6.4 g/dL (6.3-8.2)
[2023-04-03 13:58] LABS: Vitamin B12 346 pg/mL (239-931)
[2023-04-06 11:03] LABS: Methylmalonic Acid,Serum 152 nmol/L (0-378)
== END ==
PROVIDERS: PCP Internal Medicine; Referring Provider Internal Medicine; Visit Provider Internal Medicine
DX: E78.2 Mixed hyperlipidemia (principal); I10 Essential (primary) hypertension; E53.8 Deficiency of other specified B group vitamins
CPT/HCPCS: 36415; 80053; 82607; 83921; 85027

== ENCOUNTER → 2023-08-12 15:44 | Outpatient (CLI) | payer MEDICARE, OTHER, SELFPAY ==
[2023-08-12 15:59] LABS: Hematocrit 43.9 % (41-53); Mean Corpuscular HGB Conc 34.3 % (30-36); Mean Corpuscular Hemoglobin 36.7 PG (26-34); Mean Corpuscular Volume 106.9 fL (80-100); Platelet Count 204 X10^3/uL (150-400); Red Cell Distribution Width 14.7 % (11.6-14.8); White Blood Cell Count 8.2 X10^3/uL (4.5-11.0)
[2023-08-12 16:27] LABS: Alanine Aminotransferase 45 IU/L (<50); Albumin 4.2 g/dL (3.5-5.0); Albumin Globulin Ratio 1.5 (1.0-2.8); Alkaline Phosphatase 119 U/L (38-126); Aspartate Aminotransferase 43 IU/L (17-59); BUN Creatinine Ratio 24.5 (6-22); Bilirubin Total 1.6 mg/dL (0.2-1.3); Blood Urea Nitrogen 34 mg/dL (9-20); Calcium 9.6 mg/dL (8.4-10.2); Carbon Dioxide 29 mmol/L (22-32); Chloride 110 mmol/L (98-107); Estimated Glomerular Filt Rate 49 mL/min (>60); Globulin 2.8 g/dL (1.7-4.1); Glucose 96 mg/dL (80-110); HEMOLYSIS < 15 (0-50); Potassium 4.7 mmol/L (3.4-5.1); Sodium 143 mmol/L (137-145)
== END ==
PROVIDERS: PCP Internal Medicine; Referring Provider Internal Medicine; Visit Provider Internal Medicine
DX: I48.0 Paroxysmal atrial fibrillation (principal); I50.22 Chronic systolic (congestive) heart failure
CPT/HCPCS: 36415; 80053; 85027

== ENCOUNTER → 2023-10-23 16:36 | Outpatient (CLI) | payer MEDICARE, OTHER, SELFPAY ==
[2023-10-23 18:17] LABS: BUN Creatinine Ratio 22.4 (6-22); Blood Urea Nitrogen 32 mg/dL (9-20); Calcium 9.1 mg/dL (8.4-10.2); Carbon Dioxide 25 mmol/L (22-32); Chloride 108 mmol/L (98-107); Estimated Glomerular Filt Rate 48 mL/min (>60); Glucose 96 mg/dL (80-110); HEMOLYSIS < 15 (0-50); Potassium 4.8 mmol/L (3.4-5.1); Sodium 138 mmol/L (137-145)
== END ==
PROVIDERS: PCP Internal Medicine; Referring Provider Internal Medicine; Visit Provider Internal Medicine
DX: E78.2 Mixed hyperlipidemia (principal); I11.0 Hypertensive heart disease with heart failure; I50.22 Chronic systolic (congestive) heart failure; I25.118 Atherosclerotic heart disease of native coronary artery with other forms of angina pectoris
CPT/HCPCS: 36415; 80048

== ENCOUNTER → 2023-11-08 14:28 | Outpatient (CLI) | payer MEDICARE, OTHER, SELFPAY ==
[2023-11-08 15:22] LABS: BUN Creatinine Ratio 19.7 (6-22); Blood Urea Nitrogen 28 mg/dL (9-20); Calcium 8.9 mg/dL (8.4-10.2); Carbon Dioxide 27 mmol/L (22-32); Chloride 109 mmol/L (98-107); Estimated Glomerular Filt Rate 48 mL/min (>60); Glucose 118 mg/dL (80-110); HEMOLYSIS < 15 (0-50); Potassium 4.3 mmol/L (3.4-5.1); Sodium 139 mmol/L (137-145)
== END ==
LOC: LAB 14:29
PROVIDERS: PCP Internal Medicine; Referring Provider Internal Medicine; Visit Provider Internal Medicine
DX: N28.9 Disorder of kidney and ureter, unspecified (principal)
CPT/HCPCS: 36415; 80048

== ENCOUNTER → 2023-11-15 11:40 | Outpatient (CLI) | payer MEDICARE, OTHER, SELFPAY ==
--- NOTE | 2023-11-15 | DI.US.S_ITS ---
PROCEDURE: US RENAL COMPLETE INDICATIONS: Chronic kidney disease, stage 3a TECHNIQUE: Real-time scanning was performed of the kidneys and bladder, with image documentation. COMPARISON: None. FINDINGS: Kidneys: Kidneys are normal in size. Right kidney measures 9.1 cm long; left kidney measures 10.3 cm long. Right renal cortical thickness is 1.5 cm; left renal cortical thickness is 1.5 cm. Renal cortical echotexture is increased. Right simple appearing cyst measuring 10.6 x 10.4 x 8 cm. Left simple appearing cyst measuring 3.3 x 2.8 x 2.8 cm. A few additional smaller left renal cysts. No hydronephrosis or nephrolithiasis. No suspicious solid mass lesions. Bladder: Pre-void bladder volume is 19 mL. Post-void residual is 0 mL. Pre-void images demonstrate no intraluminal masses or stones. Ureteral jets are not seen. Miscellaneous: No free pelvic fluid. IMPRESSION: 1. Increased echogenicity of the renal parenchyma. This is most consistent with medical renal disease. 2. No hydronephrosis. No kidney stones identified. 3. Bilateral simple appearing renal cysts. The cyst on the right is large measuring 10.6 cm. If clinically indicated CT abdomen pelvis with IV contrast could be considered for further evaluation. Dictated by: Kartik Vera M.D. on 11/15/2023 at 16:00 Approved by: Kartik Vera M.D. on 11/15/2023 at 16:04
== END ==
LOC: US 11:41
PROVIDERS: PCP Internal Medicine; Referring Provider Internal Medicine; Visit Provider Internal Medicine
DX: N18.31 Chronic kidney disease, stage 3a (principal); N28.1 Cyst of kidney, acquired
CPT/HCPCS: 76770

== ENCOUNTER → 2023-11-18 11:16 | Outpatient (CLI) | payer MEDICARE, OTHER, SELFPAY ==
--- NOTE | 2023-11-18 11:19 | DI.RAD.S_ITS ---
PROCEDURE: FL UPPER GI SERIES INDICATIONS: dysphagia COMPARISON: None. FINDINGS: KUB: Preprocedural branch operation evaluation manager film demonstrates a unremarkable bowel gas pattern. Visualized solid organ contours appear normal. Total right hip arthroplasty hardware partially visualized. Surgical clips project over the pelvis. Mild scoliosis noted. Medial sternotomy wires present. Esophagus: Esophageal mucosa shows severe tertiary contractions. Due to severe tertiary contractions is difficult to evaluate for extrinsic mass effects, or diverticula. Large hiatal hernia seen with gastroesophageal reflux.. There is delayed transit of a calibrated barium tablet through the esophagus. Stomach: The stomach is normally distensible, with normal rugal fold thickness. No definite mucosal masses or ulcers. Pylorus and duodenal bulb appear normal grossly unremarkable morphology. Duodenal folds are normal in thickness as well. IMPRESSION: 1. 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 Endoscopy may provide additional diagnostic benefit if indicated. 2. Large hiatal hernia Dictated by: Jd Pereira M.D. on 11/18/2023 at 15:03 Approved by: Jd Pereira M.D. on 11/18/2023 at 15:08
== END ==
PROVIDERS: PCP Internal Medicine; Referring Provider Internal Medicine; Visit Provider Internal Medicine
DX: K21.9 Gastro-esophageal reflux disease without esophagitis (principal); K44.9 Diaphragmatic hernia without obstruction or gangrene; R13.10 Dysphagia, unspecified
CPT/HCPCS: 74240

== ENCOUNTER 2024-08-06 21:14 | Emergency (ER) | payer MEDICARE, OTHER, SELFPAY ==
[2024-08-06 21:18] VITALS: BP 169/77; PULSE 60; RESP 18; TEMP 36.6; O2SAT 97; BMI 23.2
--- NOTE | 2024-08-06 21:23 | DI.RAD.S_ITS ---
PROCEDURE: XR HIP W PEL IF DONE RT 2V INDICATIONS: fall/pain TECHNIQUE: AP pelvis with lateral view(s) of the right hip(s). COMPARISON: [facility], , XR HIP W PEL IF DONE RT 2V, 06/25/2019, 8:23. FINDINGS: Bones: New right hip arthroplasty components are present. Components are in normal alignment without dislocation. No periprosthetic fractures. No acute pelvic fractures. 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 Soft tissues: The visualized bowel gas pattern is normal. No suspicious soft tissue calcifications. Surgical clips over the pelvis and right inguinal region. Vascular calcifications. IMPRESSION: No evidence of periprosthetic fracture or prosthetic dislocation. No acute pelvic fractures seen. Dictated by: Zulay Graham M.D. on 08/06/2024 at 22:00 Approved by: Zulay Graham M.D. on 08/06/2024 at 22:02
[2024-08-06 23:54] VITALS: PULSE 50; O2SAT 99
[2024-08-07] VITALS: BP 151/81; PULSE 47; O2SAT 98
[2024-08-07 00:30] VITALS: BP 159/74; PULSE 52; O2SAT 97
[2024-08-07 01:00] VITALS: BP 180/77; PULSE 48; O2SAT 98
--- NOTE | 2024-08-07 01:18 | ED_ITS ---
HPI - Fall General Chief Complaint: Fall Stated Complaint: rt hip pain s/p fall Time Seen by Provider: 08/07/24 01:17 Source: patient and family Mode of arrival: Ambulatory Limitations: no limitations History of Present Illness HPI Narrative: 89-year-old male history of bypass on Plavix with complaint of fall while getting out of the tub 2 days ago. Patient states he just lost his balance slipped and fell. States he landed on his right hip. Has had a prior right hip replacement. Patient states it has been a little bit painful but has noticed issues particularly going up stairs. He states going down the stairs does not bother him very much. Notes it feels a little bit weak her sort of like it might give out. He states he has been able to walk around. He does normally use a cane to ambulate. He states when he goes to the grocery store he will use a cart because he has got chronic balance issues. Denies any other injuries. No headaches no neck or back pain, no chest pain shortness of breath no other GI or urinary symptoms. No new numbness or tingling. Denies any pain of the knee or foot. Patient is able to lift and move his leg on the bed without issue. Related Data Home Medications Medication Instructions Recorded Confirmed cholecalciferol (vitamin D3) 50 2,000 unit PO DAILY 05/19/19 11/11/23 mcg (2,000 unit) tablet (Vitamin D3) vit no.95-ferrous 1 tab PO DAILY 05/19/19 11/11/23 fumarate 28 mg-folic acid 800 mcg tablet ( Formula) clopidogrel 75 mg tablet (Plavix) 75 mg PO DAILY 02/03/21 11/11/23 atorvastatin 80 mg tablet 80 mg PO BEDTIME 01/24/22 11/11/23 apixaban 5 mg tablet 5 mg PO BID 08/12/23 11/11/23 isosorbide mononitrate 120 mg 120 mg PO DAILY 08/12/23 11/11/23 tablet,extended release 24 hr losartan 25 mg tablet 25 mg PO DAILY 08/12/23 11/11/23 metoprolol tartrate 25 mg tablet 50 mg PO BID 08/12/23 11/11/23 amiodarone 200 mg tablet 200 mg PO DAILY 11/11/23 11/11/23 Previous Rx's Medication Instructions Recorded oxybutynin chloride 5 mg tablet 5 mg PO BID-TID PRN urinary 08/12/23 incontinence #90 tabs allopurinol 100 mg tablet 200 mg (2 x 100 mg) PO DAILY #180 10/23/23 tabs pantoprazole 40 mg tablet,delayed 40 mg PO BID #118 tabs 11/13/23 release Allergies Allergy/AdvReac Type Severity Reaction Status Date / Time No Known Drug Allergies Allergy Verified 11/11/23 10:32 Review of Systems Review of Systems ROS Unobtainable: All systems reviewed & are unremarkable except as noted in HPI and below Patient History Medical History Dysphagia CKD stage 3a, GFR 45-59 ml/min Chronic anticoagulation Systolic CHF, chronic Paroxysmal atrial fibrillation Venous (peripheral) insufficiency Hammertoes of both feet History of prostate cancer Mixed hyperlipidemia Essential hypertension Exercise-induced asthma (~1955) Gout (~2006) Chronic back pain Mumps (~1965) Measles Hearing loss Cataracts, bilateral (~2018) History of urinary incontinence (~2003) GERD (gastroesophageal reflux disease) (~2005) Myocardial infarction (~1987) Coronary artery disease (~1987) Prostate cancer (~2003) Surgical History Anesthesia History of coronary artery bypass graft (~06/2009) History of hip replacement (~01/2019) History of radical prostatectomy History of inguinal hernia repair (~11/1986) Hx of CABG (~01/1996) Hx of CABG (~10/1987) Family History Father History of heart disease Hypertension Sister Cancer Grandfather History of heart disease Grandmother History of heart disease Grandfather History of heart disease Grandmother History of heart disease Social History details: (Kassi), grown children, retired household members: spouse Smoking Status: Never smoker alcohol intake: current Smoking Status: Never smoker alcohol intake frequency: holidays/special occasions only Exam Narrative Exam Narrative: GENERAL: Alert and oriented x three, elderly male in mild distress HEENT: Head normocephalic, atraumatic, EOMI, pupils reactive, face symmetric, moist mucous membranes NECK: Supple, full range of motion CARDIOVASCULAR: Regular rate and rhythm without murmurs, rubs or gallops. RESPIRATORY: Breath sounds equal bilaterally, no wheezes rales or rhonchi. ABDOMEN: Soft, nontender. Normoactive bowel sounds all 4 quadrants. No guarding or rebound, rigidity, no mass : No CVA tenderness EXTREMITIES: Nontender with a right hip and throughout the right lower extremity, nontender in the knee, ankle and foot. Normal range of motion, no clubbing or edema. Neurovascularly intact. No ecchymosis, no hematoma. Patient does not have any increased pain with external rotation, internal rotation or bend of the hip or knee. NEUROLOGICAL: Cranial nerves II through XII grossly intact. Moving all extremi ties SKIN: Warm, dry, no petechiae, no rashes or lesions. Initial Vital Signs Initial Vital Signs: Vital Signs Temperature 97.8 F 08/06/24 21:18 Pulse Rate 60 08/06/24 21:18 Respiratory Rate 18 08/06/24 21:18 Blood Pressure 169/77 H 08/06/24 21:18 Pulse Oximetry 97 08/06/24 21:18 Oxygen Delivery Method Room Air 08/06/24 21:18 Course Orders Ordered: ED Orders 08/06/24 21:23 XR hip w pel if done RT 2V Stat Vital Signs Vital signs: Vital Signs - 8 hr 08/06/24 21:18 08/06/24 23:54 08/07/24 00:00 Temperature 97.8 F Pulse Rate 60 50 L 47 L Respiratory Rate 18 Blood Pressure 169/77 H Pulse Oximetry 97 99 98 Oxygen Delivery Method Room Air 08/07/24 00:00 08/07/24 00:30 08/07/24 00:30 Temperature Pulse Rate 52 L Respiratory Rate Blood Pressure 151/81 H 159/74 H Pulse Oximetry 97 Oxygen Delivery Method 08/07/24 01:00 08/07/24 01:00 Temperature Pulse Rate 48 L Respiratory Rate Blood Pressure 180/77 H Pulse Oximetry 98 Oxygen Delivery Method MDM - Fall MDM Narrative Medical decision making narrative: Right hip shows no evidence of periprosthetic fracture prosthetic hip dislocation no acute pelvic fractures seen. Patient has had increased discomfort and feels a little bit obscure when he goes up stairs more than anything else. He has a cane but does not use any other assistive devices. Has been ambulating regularly and in the department. Discussed using a walker for the short term he does have 1 available at home. He was nontender on exam has full range of motion no other high-risk factors so felt appropriate for discharge home but follow up in the next week to 10 days if not improving. Did discuss PT might be helpful for the long-term as he has some chronic balance issues at baseline. Discharge Plan Departure Patient Disposition: Home Clinical Impression: Acute pain of right hip, Fall Instructions: How to Prevent Falls Activity Restrictions/Additional Instructions: Please follow up for recheck in the next week if you are not having any improvement. If you are interested you could talk with your physician to see if you would be a candidate for physical therapy to help with balance. Please return if you are having rapidly worsening symptoms, new bruising or skin changes, increasing pain or weakness, new swelling of your lower extremity or other new or concerning changes. Prescriptions: No Action clopidogrel [Plavix] 75 mg tablet 75 mg PO DAILY allopurinol 100 mg tablet 200 mg PO DAILY Qty: 180 3RF pantoprazole 40 mg tablet,delayed release (DR/EC) 40 mg PO BID Qty: 118 1RF apixaban 5 mg tablet 5 mg PO BID isosorbide mononitrate 120 mg tablet extended release 24 hr 120 mg PO DAILY losartan 25 mg tablet 25 mg PO DAILY metoprolol tartrate 25 mg tablet 50 mg PO BID oxybutynin chloride 5 mg tablet 5 mg PO BID-TID PRN (Reason: urinary incontinence) Qty: 90 11RF amiodarone 200 mg tablet 200 mg PO DAILY atorvastatin 80 mg tablet 80 mg PO BEDTIME cholecalciferol (vitamin D3) [Vitamin D3] 2,000 unit Tablet 2,000 unit PO DAILY PNV cmb#95-ferrous fumarate-FA [ Formula] 28 mg iron- 800 mcg Tablet 1 tab PO DAILY Referrals: Terry Rogers MD [Primary Care Provider] - Stand Alone Forms: Patient Portal/API/Survey
== END 2024-08-07 01:45 | disposition home or self-care (01) ==
PROVIDERS: Emergency Provider Emergency Medicine; PCP Internal Medicine
DX: M25.551 Pain in right hip (principal); Z96.641 Presence of right artificial hip joint; W01.0XXA Fall on same level from slipping, tripping and stumbling without subsequent striking against object, initial encounter
CPT/HCPCS: 73502; 99281; 99283

== ENCOUNTER 2024-10-27 18:35 | Emergency (ER) | payer MEDICARE, OTHER, SELFPAY ==
[2024-10-27 18:40] VITALS: BP 171/74; PULSE 48; RESP 18; TEMP 36.6; O2SAT 99; BMI 22.3
--- NOTE | 2024-10-27 20:00 | DI.RAD.S_ITS ---
PROCEDURE: XR FOREARM LT 2V INDICATIONS: fall, left FA pain TECHNIQUE: 2 views of the forearm were acquired. COMPARISON: None. FINDINGS: Bones: No fractures or dislocations. No suspicious bony lesions. Soft tissues: No suspicious soft tissue calcifications or masses. IMPRESSION: No visualized acute fracture or dislocation. However, if clinical concern and/or pain persist, short interval imaging followup in 7-10 days is recommended, as occult injury cannot be definitively excluded. Dictated by: Zaina Miles M.D. on 10/27/2024 at 20:37 Approved by: Zaina Miles M.D. on 10/27/2024 at 20:38
--- NOTE | 2024-10-27 20:33 | ED.WOUNDLAC ---
HPI - Wound/Laceration General Chief Complaint: Wound/Laceration Stated Complaint: R Arm Injury Time Seen by Provider: 10/27/24 18:53 Source: patient Mode of arrival: Ambulatory History of Present Illness HPI narrative: 89-year-old male with history of Eliquis chronic anticoagulation for atrial fibrillation, tripped yesterday, sustained small scrape to left forearm, site continues to ooze despite his dressing changes. No other injuries. Denies injury to head face neck. Denies truncal injuries. No other injuries to left upper extremity. Denies pain to left elbow left wrist hand fingers. No left upper arm or shoulder pain discomfort. Related Data Home Medications ?Medication ?Instructions ?Recorded ?Confirmed cholecalciferol (vitamin D3) 50 2,000 unit PO DAILY 05/19/19 09/28/24 mcg (2,000 unit) tablet (Vitamin D3) vit no.95-ferrous 1 tab PO DAILY 05/19/19 09/28/24 fumarate 28 mg-folic acid 800 mcg tablet ( Formula) clopidogrel 75 mg tablet (Plavix) 75 mg PO DAILY 02/03/21 09/28/24 atorvastatin 80 mg tablet 80 mg PO BEDTIME 01/24/22 09/28/24 apixaban 5 mg tablet 5 mg PO BID 08/12/23 09/28/24 isosorbide mononitrate 120 mg 120 mg PO DAILY 08/12/23 09/28/24 tablet,extended release 24 hr losartan 25 mg tablet 25 mg PO DAILY 08/12/23 09/28/24 amiodarone 200 mg tablet 200 mg PO DAILY 11/11/23 09/28/24 metoprolol tartrate 50 mg tablet 50 mg PO DAILY 09/28/24 09/28/24 Previous Rx's ?Medication ?Instructions ?Recorded allopurinol 100 mg tablet 200 mg (2 x 100 mg) PO DAILY #180 08/12/24 tabs pantoprazole 40 mg tablet,delayed 40 mg PO BID #180 tabs 08/12/24 release oxybutynin chloride 5 mg tablet 5 mg PO BID-TID PRN urinary 08/21/24 incontinence #180 tabs Allergies Allergy/AdvReac Type Severity Reaction Status Date / Time No Known Drug Allergies Allergy Verified 10/27/24 18:40 Patient History Medical History Cataracts, bilateral (~2018) Chronic anticoagulation Chronic back pain CKD stage 3a, GFR 45-59 ml/min Coronary artery disease (~1987) Dysphagia Essential hypertension Exercise-induced asthma (~1955) GERD (gastroesophageal reflux disease) (~2005) Gout (~2006) Hammertoes of both feet Hearing loss History of prostate cancer History of urinary incontinence (~2003) Measles Mixed hyperlipidemia Mumps (~1965) Myocardial infarction (~1987) Paroxysmal atrial fibrillation Prostate cancer (~2003) Systolic CHF, chronic Venous (peripheral) insufficiency Surgical History Anesthesia History of coronary artery bypass graft (~06/2009) History of hip replacement (~01/2019) History of inguinal hernia repair (~11/1986) History of radical prostatectomy Hx of CABG (~10/1987) Hx of CABG (~01/1996) Family History Father History of heart disease Hypertension Sister Cancer Grandfather History of heart disease Grandmother History of heart disease Grandfather History of heart disease Grandmother History of heart disease Social History details: (Kassi), grown children, retired household members: spouse Smoking Status: Never smoker alcohol intake: current Smoking Status: Never smoker alcohol intake frequency: holidays/special occasions only Exam Narrative Exam Narrative: GENERAL: [Well-developed patient, in mild distress. HEAD: Atraumatic. Normocephalic. EYES: Pupils equal round and reactive. Extraocular motions intact. No scleral icterus. No injection or drainage. ENT: Nose without bleeding, purulent drainage. Throat without erythema, tonsillar hypertrophy or exudate. Airway patent. NECK: Trachea midline. Non tender CARDIOVASCULAR: Regular rate and rhythm without murmurs, gallops, or rubs. RESPIRATORY: Clear to auscultation. Breath sounds equal bilaterally. No wheezes, rales, or rhonchi. GASTROINTESTINAL: Abdomen soft, non-tender, nondistended. EXTREMITIES: Left forearm with small patch skin avulsion, non vitalized skin tag with a pedunculated 2 mm connection only, not salvageable, trimmed away. Active ooze nonpulsatile from site. Dressed with Surgicel and folded gauze and op-site pressure dressing. BACK: Nontender without deformity or crepitance. No flank tenderness. NEURO: AOx3. SKIN: No rash or erythema of visible areas Initial Vital Signs Initial Vital Signs: Vital Signs Temperature 98 F 10/27/24 18:40 Pulse Rate 48 L 10/27/24 18:40 Respiratory Rate 18 10/27/24 18:40 Blood Pressure 171/74 H 10/27/24 18:40 Pulse Oximetry 99 10/27/24 18:40 Oxygen Delivery Method Room Air 10/27/24 18:40 Course Orders Ordered: Discontinued Medications Diphtheria/Tetanus/Acell Pertussis (Tet,Diph,Pertuss(Acell),Vac/Pf 0.5 Ml Syringe) 0.5 ml IM .ONCE ONE Stop: 10/27/24 21:13 Last Admin: 10/27/24 21:18 Dose: 0.5 ml Documented By: ROB Vital Signs Vital signs: Vital Signs - 8 hr 10/27/24 18:40 Temperature 98 F Pulse Rate 48 L Respiratory Rate 18 Blood Pressure 171/74 H Pulse Oximetry 99 Oxygen Delivery Method Room Air MDM - Wound/Laceration MDM Narrative Medical decision making narrative: Ground level fall with arm scraped yesterday, chronic anticoagulation, continued oozing from small scrape site left forearm. Devitalized avulsion superficial skin, pedunculated tag, removed with iris scissors single snip. Nonpulsatile brisk right red blood who is from site. Direct pressure with Surgicel, then folded gauze, op-site pressure dressing. Wound recheck 2 days with regular provider advised. Unclear last tetanus, greater than 5 years likely, agrees to tetanus update. IM Tdap ordered. Dressing applied, seems to have adequate hemostasis. Discharged home. Wound check advised with PCP in 2 days. Discharge Plan Departure Patient Disposition: Home Clinical Impression: Laceration of skin of left forearm, Chronic anticoagulation Activity Restrictions/Additional Instructions: Fall yesterday with superficial scrape to left forearm, skin tag residual removed that was nonviable, oozing blood, nonpulsatile. Local dressing with Surgicel procoagulant and overlying gauze with occlusive dressing. Recheck with your regular doctor in 2 days. Continue taking your regular medications for now. Return to this/nearest emergency department for any change worsening symptoms or any concerns prior. Prescriptions: No Action metoprolol tartrate 50 mg tablet 50 mg PO DAILY clopidogrel [Plavix] 75 mg tablet 75 mg PO DAILY oxybutynin chloride 5 mg tablet 5 mg PO BID-TID PRN (Reason: urinary incontinence) Qty: 180 3RF apixaban 5 mg tablet 5 mg PO BID isosorbide mononitrate 120 mg tablet extended release 24 hr 120 mg PO DAILY losartan 25 mg tablet 25 mg PO DAILY amiodarone 200 mg tablet 200 mg PO DAILY atorvastatin 80 mg tablet 80 mg PO BEDTIME allopurinol 100 mg tablet 200 mg PO DAILY Qty: 180 3RF pantoprazole 40 mg tablet,delayed release (DR/EC) 40 mg PO BID Qty: 180 3RF cholecalciferol (vitamin D3) [Vitamin D3] 2,000 unit Tablet 2,000 unit PO DAILY PNV cmb#95-ferrous fumarate-FA [ Formula] 28 mg iron- 800 mcg Tablet 1 tab PO DAILY Referrals: Terry Rogers MD [Primary Care Provider, Internal Medicine] Stand Alone Forms: Patient Portal/API
[2024-10-27] MEDS: TET,DIPH,PERTUSS(ACELL),VAC/PF 0.5 ML SYRINGE IM (21:18)
[2024-10-27 21:30] VITALS: BP 179/84; PULSE 55; RESP 16; O2SAT 96
== END 2024-10-27 21:33 | disposition home or self-care (01) ==
PROVIDERS: Emergency Provider Emergency Medicine; PCP Internal Medicine
DX: S51.812A Laceration without foreign body of left forearm, initial encounter (principal); W01.0XXA Fall on same level from slipping, tripping and stumbling without subsequent striking against object, initial encounter; Z79.01 Long term (current) use of anticoagulants; Z23 Encounter for immunization
CPT/HCPCS: 73090; 90471; 99283; 90715

== ENCOUNTER → 2024-11-11 09:17 | Outpatient (CLI) | payer MEDICARE, OTHER, SELFPAY | PROVIDERS: PCP Internal Medicine; Visit Provider Physician Assistant Medical | DX: J02.9 Acute pharyngitis, unspecified (principal) | CPT/HCPCS: 87070 ==

== ENCOUNTER → 2024-11-11 09:54 | Outpatient (CLI) | payer MEDICARE, OTHER, SELFPAY ==
--- NOTE | 2024-11-11 09:56 | DI.RAD.S_ITS ---
PROCEDURE: XR CHEST 2V INDICATIONS: Cough TECHNIQUE: 2 views of the chest were acquired. COMPARISON: [facility], CR, XR CHEST 1V, 07/05/2022, 16:41. [facility], CR, XR CHEST 2V, 09/04/2018, 9:29. FINDINGS: Surgical changes and devices: Sternotomy wires are present. Lungs and pleura: Lungs are clear. No pleural effusions or pneumothorax. Mediastinum: Mediastinal contours are normal. Heart size is normal. Bones and chest wall: No suspicious bony abnormalities. Soft tissues appear unremarkable. IMPRESSION: No acute cardiopulmonary abnormality is seen. Approved by: Kory Pereira M.D. on 11/11/2024 at 10:20
== END ==
LOC: RAD 09:55
PROVIDERS: PCP Internal Medicine; Referring Provider Physician Assistant Medical; Visit Provider Physician Assistant Medical
DX: J02.9 Acute pharyngitis, unspecified (principal); R05.9 Cough, unspecified
CPT/HCPCS: 71046; 87070; 87880

== ENCOUNTER 2025-02-26 13:22 | Emergency (ER) | payer MEDICARE, OTHER, SELFPAY ==
[2025-02-26 13:34] VITALS: BP 121/56; PULSE 54; RESP 18; TEMP 36.8; O2SAT 97; BMI 24.0
--- NOTE | 2025-02-26 13:41 | DI.CT.S_ITS ---
PROCEDURE: CT HEAD/BRAIN WO CON INDICATIONS: fall on thinners TECHNIQUE: Noncontrast 4.5 mm thick angled axial sections acquired from the foramen magnum to the vertex, with coronal and sagittal reformats. For radiation dose reduction, the following was used: automated exposure control, adjustment of mA and/or kV according to patient size. COMPARISON: None. FINDINGS: Image quality: Diagnostic. CSF spaces: Basal cisterns are patent. No extra-axial fluid collections. The ventricles are symmetric in size and shape. Brain: No intracranial bleeds or mass effect. There is cerebral volume loss, with resultant ventricular and sulcal prominence. There are periventricular and deep white matter chronic small vessel ischemic changes. There is intracranial internal carotid artery atherosclerosis. Skull and face: Calvarium and visualized facial bones appear intact, without suspicious lesions. Sinuses: Visualized sinuses and mastoids are clear except for mild right maxillary sinus mucosal thickening without air-fluid level, and an anterior moderate-sized mucous retention cyst in that sinus cavity. IMPRESSION: No acute intracranial pathology. Minimal chronic right maxillary sinusitis. Dictated by: Florian Robledo M.D. on 02/26/2025 at 14:17 Approved by: Florian Robledo M.D. on 02/26/2025 at 14:18
--- NOTE | 2025-02-26 13:41 | DI.CT.S_ITS ---
PROCEDURE: CT CERVICAL SPINE WO CON INDICATIONS: fall on thinners TECHNIQUE: Noncontrast 3 mm thick sections acquired from the skull base to the T4 level. Sagittal and coronal reformats were then constructed. For radiation dose reduction, the following was used: automated exposure control, adjustment of mA and/or kV according to patient size. COMPARISON: [facility], CT, CT HEAD/BRAIN WO CON, 02/26/2025, 14:06. FINDINGS: Image quality: Excellent. Bones: No fractures or dislocations. Advanced diffuse cervical spondylitic change. There is a degree of canal stenosis C5-C6 and C6-C7. There is multilevel severe bony foraminal narrowing. There is an old jas-bank consultant's fracture of T1 spinous process which is nonunited. Visualized superior ribs are intact. Soft tissues: Prevertebral soft tissues are normal in thickness. No paravertebral hematomas. No apical pneumothoraces. IMPRESSION: No displaced fracture or traumatic subluxation. Severe cervical spondylosis. 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 Dictated by: Camden Miles M.D. on 02/26/2025 at 14:51 Approved by: Camden Miles M.D. on 02/26/2025 at 14:54
--- NOTE | 2025-02-26 14:40 | ED.FALL ---
HPI - Fall <Deya Jordan PA-C - Last Filed: 02/26/25 19:09> General Chief Complaint: Fall Stated Complaint: GLF this AM, hit head, on thinners Time Seen by Provider: 02/26/25 13:48 Source: patient Mode of arrival: Ambulatory History of Present Illness HPI Narrative: Mr. Erazo is a pleasant 89-year-old male with a past medical history of paroxysmal AFib on Eliquis, CAD, HTN, CHF, HLD CKD presents to the emergency department for a ground level trip and fall hitting his left forehead and left hand 4 hours prior to arrival. Patient states that he was attempting to carry something, it was heavier than he expected, so as he started walking he leaned forward and lost his balance causing him to fall forward hitting the right side of his forehead on the item he was carrying. He also sustained abrasions to the dorsal aspect of his left hand. There was no loss of consciousness. There was no chest pain, shortness of breath, dizziness or lightheadedness precipitating or following the fall. He has not having any nausea, vomiting, visual disturbance or pain currently. He is 2 superficial abrasions on the dorsal left hand and a small area of bruising on the right forehead. He feels well. He denies neck pain, back pain, chest pain, abdominal pain, lower extremity pain. He is here with his daughter. TDap UTD 10/27/24. Related Data Home Medications ?Medication ?Instructions ?Recorded ?Confirmed cholecalciferol (vitamin D3) 50 2,000 unit PO DAILY 05/19/19 11/11/24 mcg (2,000 unit) tablet (Vitamin D3) vit no.95-ferrous 1 tab PO DAILY 05/19/19 11/11/24 fumarate 28 mg-folic acid 800 mcg tablet ( Formula) clopidogrel 75 mg tablet (Plavix) 75 mg PO DAILY 02/03/21 11/11/24 atorvastatin 80 mg tablet 80 mg PO BEDTIME 01/24/22 11/11/24 apixaban 5 mg tablet 5 mg PO BID 08/12/23 11/11/24 isosorbide mononitrate 120 mg 120 mg PO DAILY 08/12/23 11/11/24 tablet,extended release 24 hr losartan 25 mg tablet 25 mg PO DAILY 08/12/23 11/11/24 amiodarone 200 mg tablet 200 mg PO DAILY 11/11/23 11/11/24 metoprolol tartrate 50 mg tablet 50 mg PO DAILY 09/28/24 11/11/24 Previous Rx's ?Medication ?Instructions ?Recorded allopurinol 100 mg tablet 200 mg (2 x 100 mg) PO DAILY #180 08/12/24 tabs pantoprazole 40 mg tablet,delayed 40 mg PO BID #180 tabs 08/12/24 release oxybutynin chloride 5 mg tablet 5 mg PO BID-TID PRN urinary 08/21/24 incontinence #180 tabs Allergies Allergy/AdvReac Type Severity Reaction Status Date / Time No Known Drug Allergies Allergy Verified 02/26/25 13:39 Review of Systems <Deya Jordan PA-C - Last Filed: 02/26/25 19:09> Review of Systems ROS Unobtainable: All systems reviewed & are unremarkable except as noted in HPI and below Patient History <Deya Jordan PA-C - Last Filed: 02/26/25 19:09> Medical History Cough Dysphagia CKD stage 3a, GFR 45-59 ml/min Chronic anticoagulation Systolic CHF, chronic Paroxysmal atrial fibrillation Venous (peripheral) insufficiency Hammertoes of both feet History of prostate cancer Mixed hyperlipidemia Essential hypertension Exercise-induced asthma (~1955) Gout (~2006) Chronic back pain Mumps (~1965) Measles Hearing loss Cataracts, bilateral (~2018) History of urinary incontinence (~2003) GERD (gastroesophageal reflux disease) (~2005) Myocardial infarction (~1987) Coronary artery disease (~1987) Prostate cancer (~2003) Surgical History Anesthesia History of coronary artery bypass graft (~06/2009) History of hip replacement (~01/2019) History of radical prostatectomy History of inguinal hernia repair (~11/1986) Hx of CABG (~01/1996) Hx of CABG (~10/1987) Family History Father History of heart disease Hypertension Sister Cancer Grandfather History of heart disease Grandmother History of heart disease Grandfather History of heart disease Grandmother History of heart disease Social History details: (Kassi), grown children, retired household members: spouse alcohol intake: current alcohol intake frequency: holidays/special occasions only Exam <Deya Jordan PA-C - Last Filed: 02/26/25 19:09> Narrative Exam Narrative: GENERAL: 89 year old patient appears stated age. Well-developed patient, in no acute distress. HEAD: 1 cm area of ecchymosis on anterior right forehead. No edema, wound or palpable defect. Normocephalic. EYES: PERRL. Extraocular motions intact. No scleral icterus. No injection or drainage. ENT: Nose without bleeding, purulent drainage. NECK: Trachea midline. Cervical ROM intact. No midline cervical tenderness. CARDIOVASCULAR: Regular rate and rhythm. RESPIRATORY: ?Nonlabored respirations. ?Speaking in clear, full sentences. ?Clear to auscultation. Breath sounds equal bilaterally. No wheezes, rales, or rhonchi. ? GASTROINTESTINAL: Abdomen soft, non-tender, nondistended. EXTREMITIES: No tenderness to palpation of bilateral clavicles, shoulders, elbows, wrists, hands, hips, knees, ankles. BACK: Nontender without deformity or crepitance. No flank tenderness. NEURO: AOx3. ?Clear speech. ?Moves all 4 extremities appropriately. Ambulates independently with a cane. SKIN: On the dorsal left hand there is a superficial abrasion overlying the 5th MCP and the ulnar wrist region. Initial Vital Signs Initial Vital Signs: Vital Signs Temperature 98.3 F 02/26/25 13:34 Pulse Rate 54 L 02/26/25 13:34 Respiratory Rate 18 02/26/25 13:34 Blood Pressure 121/56 L 02/26/25 13:34 Pulse Oximetry 97 02/26/25 13:34 Oxygen Delivery Method Room Air 02/26/25 13:34 <Sandie Henry MD - Last Filed: 03/01/25 23:52> Initial Vital Signs Initial Vital Signs: Vital Signs Temperature 98.3 F 02/26/25 13:34 Pulse Rate 54 L 02/26/25 13:34 Respiratory Rate 18 02/26/25 13:34 Blood Pressure 121/56 L 02/26/25 13:34 Pulse Oximetry 97 02/26/25 13:34 Oxygen Delivery Method Room Air 02/26/25 13:34 Course <Deya Jordan PA-C - Last Filed: 02/26/25 19:09> Orders Ordered: Discontinued Medications Bacitracin (Bacitracin Oint 0.9 Gm Pckt) 1 applic TOP NOW ONE Stop: 02/26/25 14:52 Last Admin: 02/26/25 15:00 Dose: 1 applic Documented By: RB Vital Signs Vital signs: Vital Signs - 8 hr 02/26/25 13:34 02/26/25 15:15 Temperature 98.3 F Pulse Rate 54 L 60 Respiratory Rate 18 14 Blood Pressure 121/56 L 126/62 Pulse Oximetry 97 97 Oxygen Delivery Method Room Air Room Air <Sandie Henry MD - Last Filed: 03/01/25 23:52> Orders Ordered: Discontinued Medications Bacitracin (Bacitracin Oint 0.9 Gm Pckt) 1 applic TOP NOW ONE Stop: 02/26/25 14:52 Last Admin: 02/26/25 15:00 Dose: 1 applic Documented By: RB Vital Signs Vital signs: Vital Signs - 8 hr 02/26/25 13:34 02/26/25 15:15 Temperature 98.3 F Pulse Rate 54 L 60 Respiratory Rate 18 14 Blood Pressure 121/56 L 126/62 Pulse Oximetry 97 97 Oxygen Delivery Method Room Air Room Air MDM - Fall <Deya Jordan PA-C - Last Filed: 02/26/25 19:09> Medical Records Attestation: I reviewed the patient's medical records. Imaging Data CT scan - head: Radiologist's Impression: PROCEDURE: CT HEAD/BRAIN WO CON INDICATIONS: fall on thinners TECHNIQUE: Noncontrast 4.5 mm thick angled axial sections acquired from the foramen magnum to the vertex, with coronal and sagittal reformats. For radiation dose reduction, the following was used: automated exposure control, adjustment of mA and/or kV according to patient size. COMPARISON: None. FINDINGS: Image quality: Diagnostic. CSF spaces: Basal cisterns are patent. No extra-axial fluid collections. The ventricles are symmetric in size and shape. Brain: No intracranial bleeds or mass effect. There is cerebral volume loss, with resultant ventricular and sulcal prominence. There are periventricular and deep white matter chronic small vessel ischemic changes. There is intracranial internal carotid artery atherosclerosis. Skull and face: Calvarium and visualized facial bones appear intact, without suspicious lesions. Sinuses: Visualized sinuses and mastoids are clear except for mild right maxillary sinus mucosal thickening without air-fluid level, and an anterior moderate-sized mucous retention cyst in that sinus cavity. IMPRESSION: No acute intracranial pathology. Minimal chronic right maxillary sinusitis. Dictated by: Florian Robledo M.D. on 02/26/2025 at 14:17 Approved by: Florian Robledo M.D. on 02/26/2025 at 14:18 CT Cervical Spine: Radiologist's Impression: PROCEDURE: CT CERVICAL SPINE WO CON INDICATIONS: fall on thinners TECHNIQUE: Noncontrast 3 mm thick sections acquired from the skull base to the T4 level. Sagittal and coronal reformats were then constructed. For radiation dose reduction, the following was used: automated exposure control, adjustment of mA and/or kV according to patient size. COMPARISON: [facility], CT, CT HEAD/BRAIN WO CON, 02/26/2025, 14:06. FINDINGS: Image quality: Excellent. Bones: No fractures or dislocations. Advanced diffuse cervical spondylitic change. There is a degree of canal stenosis C5-C6 and C6-C7. There is multilevel severe bony foraminal narrowing. There is an old jas-wine consultant's fracture of T1 spinous process which is nonunited. Visualized superior ribs are intact. Soft tissues: Prevertebral soft tissues are normal in thickness. No paravertebral hematomas. No apical pneumothoraces. IMPRESSION: No displaced fracture or traumatic subluxation. Severe cervical spondylosis. 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 Dictated by: Camden Miles M.D. on 02/26/2025 at 14:51 Approved by: Camden Miles M.D. on 02/26/2025 at 14:54 MDM Narrative Medical decision making narrative: 89-year-old male with a past medical history of paroxysmal AFib on Eliquis, CAD, HTN, CHF, HLD CKD presents to the emergency department for a ground level trip and fall hitting his left forehead and left hand 4 hours prior to arrival. Differential diagnosis includes but isn't limited to closed head injury, ICH, hematoma, abrasion, left hand sprain, strain, contusion, abrasion, etc. On exam patient is in no acute distress, nontoxic appearing, vital signs appropriate. He has a very small area of bruising on the right frontal forehead, superficial abrasion dorsal left hand. He had a ground level trip and fall due to carrying something heavy and his arms. He is asymptomatic. His Tdap is up-to-date. Given that he is on blood thinners, CT head and cervical spine was obtained and reveal no acute abnormalities. Did print and discussed incidental findings with the patient his daughter at the bedside. Discussed supportive care, rest, hydration, Tylenol, wound care, strict ER return precautions. Patient verbalized understanding of all information agreeable with the plan, he is ambulatory and stable for discharge home with his daughter. Discharge Plan Departure Patient Disposition: Home Clinical Impression: Ground-level fall Closed head injury Qualifiers: Encounter type: initial encounter Qualified Code(s): S09.90XA - Unspecified injury of head, initial encounter Abrasion of hand, left Qualifiers: Encounter type: initial encounter Qualified Code(s): S60.512A - Abrasion of left hand, initial encounter Instructions: DI for Closed Head Injury, DI for Abrasion Activity Restrictions/Additional Instructions: Dear Mr. Erazo, Thank you for coming to the emergency department. I am very sorry that you had a fall today. CT scan of your head and cervical spine was reassuring and revealed no brain bleeds or injury from the fall. Please keep the dressing on your left hand intact for the next 24 hours, after this time you may remove the dressing, clean the area with warm soapy water, pat dry then apply ointment and bandages back on type of the wounds. Please rest, hydrate, use Tylenol if needed for pain, return to the ER if you develop any new or worsening symptoms, severe pain, dizziness, nausea vomiting or other concerns. I hope you have a safe trip to [place]! Please follow up with your primary care doctor within the next 2-3 days for ER follow-up. (If you do not have a PCP you can call [phone]. ?to schedule an appointment with an [facility] Primary Care Provider) IF YOU DEVELOP ANY NEW OR WORSENING SYMPTOMS, RETURN TO THE ER! Please read the attached instructions, they highlight more specific treatments and interventions for you at home. Thank you for letting me participate in your care, Deya Jordan PA-C Prescriptions: No Action metoprolol tartrate 50 mg tablet 50 mg PO DAILY clopidogrel [Plavix] 75 mg tablet 75 mg PO DAILY oxybutynin chloride 5 mg tablet 5 mg PO BID-TID PRN (Reason: urinary incontinence) Qty: 180 3RF apixaban 5 mg tablet 5 mg PO BID isosorbide mononitrate 120 mg tablet extended release 24 hr 120 mg PO DAILY losartan 25 mg tablet 25 mg PO DAILY amiodarone 200 mg tablet 200 mg PO DAILY atorvastatin 80 mg tablet 80 mg PO BEDTIME allopurinol 100 mg tablet 200 mg PO DAILY Qty: 180 3RF pantoprazole 40 mg tablet,delayed release (DR/EC) 40 mg PO BID Qty: 180 3RF cholecalciferol (vitamin D3) [Vitamin D3] 2,000 unit Tablet 2,000 unit PO DAILY PNV no.95-ferrous fumarate-FA [ Formula] 28 mg iron- 800 mcg Tablet 1 tab PO DAILY Referrals: Terry Rogers MD [Primary Care Provider, Internal Medicine] Stand Alone Forms: Patient Portal/API ED Sign-out <Sandie Henry MD - Last Filed: 03/01/25 23:52> Cosign ED Attending Cosignature Attestation: I was immediately available in the department for consultation throughout this patient's visit. Sandie Henry MD
[2025-02-26] MEDS: BACITRACIN OINT 0.9 GM PCKT 1 APPLIC TOP (15:00)
[2025-02-26 15:15] VITALS: BP 126/62; PULSE 60; RESP 14; O2SAT 97
== END 2025-02-26 15:15 | disposition home or self-care (01) ==
PROVIDERS: Emergency Provider Physician Assistant; PCP Internal Medicine
DX: S09.90XA Unspecified injury of head, initial encounter (principal); S60.512A Abrasion of left hand, initial encounter; W18.30XA Fall on same level, unspecified, initial encounter; Z79.01 Long term (current) use of anticoagulants
CPT/HCPCS: 70450; 72125; 99282; 99284